=== PATIENT | male | born 1965 | race Caucasian/White ===

== ENCOUNTER 2020-07-07 10:41 | Outpatient (REF) | payer OTHER, SELFPAY ==
[2020-07-07 11:59] LABS: MANUAL DIFF FLAG NO
[2020-07-07 12:12] LABS: Basophils Absolute Auto 0.1 X10*3/uL (0.0-0.2); Basophils Percent Auto 1.1 % (0-2); Eosinophils Absolute Auto 0.2 X10*3/uL (0.0-0.4); Eosinophils Percent Auto 3.7 % (0-4); Hemoglobin 14.8 g/dl (14.0-18.0); Imm Gran Abs Auto 0.02 X10*3/uL (0.00-0.03); Imm Gran Pct Auto 0.4 % (0.0-0.4); Lymphocytes Absolute Auto 1.7 X10*3/uL (1.2-4.9); Lymphocytes Percent Auto 30.9 % (20-40); Mean Corpuscular HGB Conc 32.2 g/dl (31.0-36.0); Mean Corpuscular Hemoglobin 28.5 pg (27.0-33.0); Mean Corpuscular Volume 88.6 fL (80-98); Mean Platelet Volume 9.7 fL (9.4-12.4); Monocytes Absolute Auto 0.6 X10*3/uL (0.1-1.2); Monocytes Percent Auto 9.8 % (2-11); Neutrophils Absolute Auto 3.1 X10*3/uL (2.0-8.3); Neutrophils Percent Auto 54.1 % (45-73); Platelet Count 334 X10*3/uL (160-400); Red Blood Count 5.19 X10*6/uL (4.60-5.80); Red Cell Distribution Width 13.1 % (11.0-16.0); White Blood Count 5.6 X10*3/uL (4.8-10.8)
[2020-07-07 12:44] LABS: Anion Gap 12 (12-20); Blood Urea Nitrogen 21 mg/dL (9-16); Calcium 8.9 mg/dL (8.4-10.2); Carbon Dioxide 28 mmol/L (22-29); Chloride 105 mmol/L (96-108); Cholesterol 164 mg/dL; Estimated Glomerular Filt Rate > 60; Glucose Fasting 104 mg/dL (60-99); HDL Cholesterol 35 mg/dL; LDL Cholesterol Calculated 92 mg/dl; Potassium 4.8 mmol/l (3.3-5.1); Sodium 140 mmol/L (135-145); Triglycerides 187 mg/dL
[2020-07-07 12:51] LABS: Prostate Specific Antigen 0.56 ng/mL (<0.05-4.0); TSH reflex Free T4 3.19 mIU/mL (0.32-4.0)
[2020-07-07 13:11] LABS: Reflex LDLD? No
== END 2020-07-07 10:42 | disposition home or self-care (01) ==
LOC: HO.LAB 10:41
PROVIDERS: PCP Internal Medicine; Visit Provider Nurse Practitioner Family
DX: Z00.00 Encounter for general adult medical examination without abnormal findings (principal)
CPT/HCPCS: 36415; 80048; 80061; 84153; 84443; 85025

== ENCOUNTER 2020-08-10 09:30 | Outpatient (REF) | payer OTHER, SELFPAY ==
[2020-08-10 10:04] LABS: MANUAL DIFF FLAG NO
[2020-08-10 10:08] LABS: Basophils Percent Auto 0.6 % (0-2); Eosinophils Absolute Auto 0.2 X10*3/uL (0.0-0.4); Eosinophils Percent Auto 3.1 % (0-4); Hematocrit 45.4 % (42-52); Hemoglobin 14.8 g/dl (14.0-18.0); Imm Gran Abs Auto 0.03 X10*3/uL (0.00-0.03); Imm Gran Pct Auto 0.4 % (0.0-0.4); Lymphocytes Absolute Auto 1.9 X10*3/uL (1.2-4.9); Lymphocytes Percent Auto 27.5 % (20-40); Mean Corpuscular HGB Conc 32.6 g/dl (31.0-36.0); Mean Corpuscular Hemoglobin 28.8 pg (27.0-33.0); Mean Corpuscular Volume 88.3 fL (80-98); Mean Platelet Volume 9.4 fL (9.4-12.4); Monocytes Absolute Auto 0.5 X10*3/uL (0.1-1.2); Monocytes Percent Auto 7.8 % (2-11); Neutrophils Absolute Auto 4.1 X10*3/uL (2.0-8.3); Neutrophils Percent Auto 60.6 % (45-73); Platelet Count 345 X10*3/uL (160-400); Red Blood Count 5.14 X10*6/uL (4.60-5.80); Red Cell Distribution Width 13.1 % (11.0-16.0); White Blood Count 6.8 X10*3/uL (4.8-10.8)
[2020-08-10 10:26] LABS: Alanine Aminotransferase 29 U/L (0-40); Albumin Level 4.5 g/dL (3.5-5.0); Alkaline Phosphatase 63 U/L (39-117); Anion Gap 11 (12-20); Aspartate Amino Transferase 24 U/L (5-37); Bilirubin Total 0.5 mg/dL (0.0-1.0); Blood Urea Nitrogen 14 mg/dL (9-16); Calcium 8.8 mg/dL (8.4-10.2); Carbon Dioxide 28 mmol/L (22-29); Chloride 105 mmol/L (96-108); Estimated Glomerular Filt Rate > 60; Glucose Fasting 118 mg/dL (60-99); Potassium 4.7 mmol/l (3.3-5.1); Sodium 139 mmol/L (135-145); Total Protein 7.2 g/dL (6.5-8.0)
[2020-08-10 10:36] LABS: Rheumatoid Factor < 15.0 IU/mL (<15.0)
== END 2020-08-10 09:31 | disposition home or self-care (01) ==
LOC: HO.LAB 09:30
PROVIDERS: PCP Internal Medicine; Visit Provider Nurse Practitioner Family
DX: M19.90 Unspecified osteoarthritis, unspecified site (principal)
CPT/HCPCS: 36415; 80053; 85025; 86431

== ENCOUNTER 2020-10-05 08:20 | Outpatient (REF) | payer OTHER, SELFPAY ==
--- NOTE | ~2020-10-05 | XR_ITS ---
EXAMINATION: XR LUMBOSACRAL SPINE CLINICAL INFORMATION: Back pain. COMPARISON: None TECHNIQUE: Three views of the lumbosacral spine. FINDINGS: Mild disc space narrowing is seen at L5-S1. Normal lumbar lordosis and spinal alignment is seen. The vertebral bodies are intact. The soft tissues are unremarkable. XR/XR lumbar spine 2-3V IMPRESSION: L5-S1 mild disc space narrowing may be degenerative in nature. No acute abnormality.
[2020-10-05 09:20] LABS: MANUAL DIFF FLAG NO
[2020-10-05 09:23] LABS: Basophils Absolute Auto 0.1 X10*3/uL (0.0-0.2); Basophils Percent Auto 1.1 % (0-2); Eosinophils Absolute Auto 0.3 X10*3/uL (0.0-0.4); Eosinophils Percent Auto 3.6 % (0-4); Hematocrit 44.2 % (42-52); Hemoglobin 14.9 g/dl (14.0-18.0); Imm Gran Abs Auto 0.02 X10*3/uL (0.00-0.03); Imm Gran Pct Auto 0.3 % (0.0-0.4); Lymphocytes Absolute Auto 1.7 X10*3/uL (1.2-4.9); Lymphocytes Percent Auto 24.5 % (20-40); Mean Corpuscular HGB Conc 33.7 g/dl (31.0-36.0); Mean Corpuscular Hemoglobin 29.3 pg (27.0-33.0); Mean Corpuscular Volume 86.8 fL (80-98); Mean Platelet Volume 9.4 fL (9.4-12.4); Monocytes Absolute Auto 0.7 X10*3/uL (0.1-1.2); Monocytes Percent Auto 9.4 % (2-11); Neutrophils Absolute Auto 4.3 X10*3/uL (2.0-8.3); Neutrophils Percent Auto 61.1 % (45-73); Platelet Count 330 X10*3/uL (160-400); Red Blood Count 5.09 X10*6/uL (4.60-5.80); Red Cell Distribution Width 12.7 % (11.0-16.0)
[2020-10-05 09:50] LABS: Alanine Aminotransferase 25 U/L (0-40); Albumin Level 4.4 g/dL (3.5-5.0); Alkaline Phosphatase 76 U/L (39-117); Anion Gap 13 (12-20); Aspartate Amino Transferase 19 U/L (5-37); Bilirubin Total 0.3 mg/dL (0.0-1.0); Blood Urea Nitrogen 19 mg/dL (9-16); C Reactive Protein 0.23 mg/dL (< or = 0.50); Calcium 9.2 mg/dL (8.4-10.2); Carbon Dioxide 28 mmol/L (22-29); Chloride 107 mmol/L (96-108); Estimated Glomerular Filt Rate > 60; Glucose Random 100 mg/dL (60-115); Potassium 4.5 mmol/L (3.3-5.1); Sodium 143 mmol/L (135-145); Total Protein 7.5 g/dL (6.5-8.0)
[2020-10-05 10:09] LABS: Erythrocyte Sedimentation Rate 6 MM/HR (0-15)
[2020-10-06 14:57] LABS: Cyclic Citrullinated Peptide 17 UNITS
== END 2020-10-05 08:21 | disposition home or self-care (01) ==
LOC: HO.LAB 08:20
PROVIDERS: PCP Internal Medicine; Visit Provider Student in an Organized Health Care Education/Training Program
DX: M25.50 Pain in unspecified joint (principal); M54.5 Low back pain
CPT/HCPCS: 36415; 72100; 80053; 85025; 85652; 86140; 86200; 99202

== ENCOUNTER 2020-10-26 09:40 | Outpatient (REF) | payer OTHER, SELFPAY ==
--- NOTE | ~2020-10-26 | XR_ITS ---
EXAMINATION: XR SHOULDER, RIGHT CLINICAL INFORMATION: Pain right shoulder. COMPARISON: None TECHNIQUE: AP external rotation, Grashey, scapular Y, and axillary views of the right shoulder. FINDINGS: There is no visible acute fracture, dislocation or subluxation. No bony erosive changes. The AC joint is intact. The soft tissues are normal. XR/XR shoulder RT min 2V IMPRESSION: Unremarkable right shoulder exam.
== END 2020-10-26 09:41 | disposition home or self-care (01) ==
LOC: HO.XRAY 09:40
PROVIDERS: Absent Provider Internal Medicine; PCP Internal Medicine; Visit Provider Student in an Organized Health Care Education/Training Program
DX: M25.511 Pain in right shoulder (principal); G89.29 Other chronic pain; M54.5 Low back pain
CPT/HCPCS: 73030; 99212

== ENCOUNTER → 2020-12-09 15:45 | Outpatient (BNVA) | payer OTHER, SELFPAY | PROVIDERS: PCP Internal Medicine; Visit Provider Urology ==

== ENCOUNTER 2020-12-31 13:00 | Outpatient (RCR) | payer OTHER, SELFPAY ==
--- NOTE | 2020-11-29 11:07 | MHC.PT.EP ---
[facility] [place] Office [place] Office [place] Office [address] Uday Reilly [address] [phone] F: [phone] F: [phone] F: [phone] F: [phone] Physical Therapy Plan of Care Date of Evaluation: Date of Surgery: NA Diagnosis: LOW BACK PAIN Assessment: BELLA PRESENTS WITH LOW BACK OF APROX. 6 MONTHS DURATION, IMPROVED BUT NOT RESOLVED. UPON EXAM HE DEMONSTRATES DECREASED CORE AND LE STRENGTH, DECREASED TRUNK AND LE ROM, ALTERED POSTURE AND POSITIONING, ALTERED GAIT, DECREASED SOFT TISSUE MOBILITY AND INCREASED PAIN. FUNCTIONAL LIMITATIONS INCLUDE DECREASED ABILITY TO PERFORM LIFTING, BENDING AND SQUATTING, DECREASED ABILITY TO PERFORM HIGHER DEMAND HOMEMAKING TASKS, DECREASED ABILITY TO WALK LONG DISTANCES AND PERFORM STAND POSITIONING FOR MORE THAN A FEW MOMENTS. HE REPORTS DECREASED PARTICIPATION IN RECREATIONAL AND FITNESS TASKS AND REPORTS DISRUPTED SLEEP. Frequency and Duration: The patient will be seen 2 X WEEK FOR 5 WEEKS Short Term Goals: INITIATE HEP AND DEMONSTRATE EVIDENCE OF LEARNING IN 2 VISITS EDUC IN APPROPRIATE POSTURE AND POSITIONING WITH EVIDENCE OF LEARNING IN 2 VISITS [employer] Clearing Agent Goals: IN 5 WEEKS: WILL DEMONSTRATE FULL, PAIN FREE LUMBAR ROM WILL DEMONSTRATE FULL, PAIN FREE LE STRENGTH, EQUAL ONEL TO PERFORM HEP WITH INDEPENDENCE TO DEMONSTRATE LIFTING FLOOR TO WAIST AND CARRY WITH APPROPRIATE BODY MECHANICS AND WITHOUT CUING TO TOLERATE WALKING AD NELLIE FOR A MINIMUM OF 20 MINS WITHOUT PAIN GREATER THAN 2/10 Treatment Plan: Modalities to reduce pain, spasms and effusion. Manual therapy to restore motion and function. Therapeutic exercise to improve strength and flexibility. Neuromuscular re-education for posture and balance. Therapeutic activities to return to functional activities of daily living. Electronically signed by: JAZZMINE DIAS PT, DPT Please sign and return to therapist. Thank you for your referral.
--- NOTE | 2021-01-20 10:04 | MHC.PT.DC ---
[facility] [place] Office [place] Office [place] Office [address] [phone] F: [phone] F: [phone] F: [phone] F: [phone] Physical Therapy Discharge Report Diagnosis: LOW BACK PAIN Date of Surgery: NA Date of Evaluation: 11/29/20 Date of Discharge: 12/31/20 Treatments to Date: 8 Cancellations to Date: 0 No Shows to Date: 1 Discharge Status: Improved Function Independent with HEP Patient Elected to Stop Discharge Summary: 12/31 Rm monterroso reporteing PT has helped in the moment px has moved from R LB to middle (per pt) pt feels he would like to see MD for follow up prior to continued PT. Recommended pt to call to continue or D/C in 2 weeks. As we have not heard from him, we are discharging at this time. Electronically signed by: Mara Doe PT, DPT Please sign and return to therapist. Thank you for your referral.
== END 2020-12-31 15:00 | disposition home or self-care (01) ==
LOC: HO.PT 13:00
PROVIDERS: PCP Internal Medicine; Visit Provider Student in an Organized Health Care Education/Training Program
DX: M54.5 Low back pain (principal)
CPT/HCPCS: 97014; 97110; 97112; 97140; 97161; 97535

== ENCOUNTER → 2021-01-04 09:09 | Outpatient (BNVA) | payer OTHER, SELFPAY | PROVIDERS: PCP Internal Medicine; Visit Provider Student in an Organized Health Care Education/Training Program | DX: M54.5 Low back pain (principal); G89.29 Other chronic pain | CPT/HCPCS: 99212 ==

== ENCOUNTER → 2021-01-13 10:04 | Outpatient (BNVA) | payer OTHER, SELFPAY | PROVIDERS: PCP Internal Medicine; Visit Provider Urology | DX: N40.1 Benign prostatic hyperplasia with lower urinary tract symptoms (principal); N13.8 Other obstructive and reflux uropathy; N52.01 Erectile dysfunction due to arterial insufficiency | CPT/HCPCS: 51798; 99212 ==

== ENCOUNTER 2021-02-09 10:10 | Outpatient (REF) | payer OTHER, SELFPAY ==
[2021-02-09 12:03] LABS: Prostate Specific Antigen 0.46 ng/mL (<0.05-4.0)
== END 2021-02-09 10:11 | disposition home or self-care (01) ==
LOC: HO.LAB 10:10
PROVIDERS: PCP Internal Medicine; Visit Provider Urology
DX: Z12.5 Encounter for screening for malignant neoplasm of prostate (principal); N13.8 Other obstructive and reflux uropathy; N40.1 Benign prostatic hyperplasia with lower urinary tract symptoms; R39.11 Hesitancy of micturition
CPT/HCPCS: 36415; 84153

== ENCOUNTER 2021-02-15 11:39 | Outpatient (REF) | payer OTHER, SELFPAY ==
--- NOTE | ~2021-02-15 | XR_ITS ---
EXAMINATION: XR CHEST CLINICAL INFORMATION: Shortness of breath. COMPARISON: None TECHNIQUE: 2 views of the chest were obtained. FINDINGS: The lungs are clear. The cardiomediastinal silhouette is normal in size. There is no pleural effusion or pneumothorax. No acute osseous abnormality. XR/XR chest 2V IMPRESSION: No acute cardiopulmonary findings.
[2021-02-15 12:18] LABS: Hematocrit 46.8 % (42-52); Mean Corpuscular HGB Conc 32.1 g/dl (31.0-36.0); Mean Corpuscular Hemoglobin 27.7 pg (27.0-33.0); Mean Corpuscular Volume 86.5 fL (80-98); Mean Platelet Volume 9.5 fL (9.4-12.4); Platelet Count 337 X10*3/uL (160-400); Red Blood Count 5.41 X10*6/uL (4.60-5.80); Red Cell Distribution Width 13.2 % (11.0-16.0)
[2021-02-15 12:23] LABS: D Dimer < 200 NG/ML
[2021-02-16 08:28] LABS: SARS COV2 IgG Negative (Negative)
== END 2021-02-15 11:40 | disposition home or self-care (01) ==
LOC: HO.LAB 11:39
PROVIDERS: PCP Internal Medicine; Visit Provider Physician Assistant
DX: Z20.822 Contact with and (suspected) exposure to COVID-19 (principal); R07.81 Pleurodynia; I10 Essential (primary) hypertension; R06.02 Shortness of breath
CPT/HCPCS: 36415; 71046; 85027; 85379; 86769

== ENCOUNTER → 2021-02-23 15:03 | Outpatient (BNVA) | payer OTHER, SELFPAY | PROVIDERS: PCP Internal Medicine; Visit Provider Nurse Practitioner Family | DX: M54.16 Radiculopathy, lumbar region (principal); M53.3 Sacrococcygeal disorders, not elsewhere classified | CPT/HCPCS: 99202 ==

== ENCOUNTER → 2021-02-24 11:23 | Outpatient (BNVA) | payer OTHER, SELFPAY | PROVIDERS: PCP Internal Medicine; Visit Provider Urology | DX: N40.1 Benign prostatic hyperplasia with lower urinary tract symptoms (principal); N13.8 Other obstructive and reflux uropathy; N52.01 Erectile dysfunction due to arterial insufficiency; R39.11 Hesitancy of micturition; R31.9 Hematuria, unspecified | CPT/HCPCS: 51798; 99212 ==

== ENCOUNTER 2021-03-08 08:20 | Outpatient (REF) | payer OTHER, SELFPAY ==
--- NOTE | ~2021-03-08 | MR_ITS ---
MR LUMBAR SPINE WITHOUT CONTRAST CLINICAL INFORMATION: Lumbar region radiculopathy. COMPARISON: Lumbar spine radiographs 10/05/2020. TECHNIQUE: MRI of the lumbar spine was obtained using routine sequences without contrast. FINDINGS: There are 5 nonrib-bearing lumbar-type vertebral bodies. Slight grade 1 anterolisthesis of L4 on L5. Lumbar alignment is otherwise maintained. Modic type I endplate signal changes at L5-S1. There is no additional bone marrow edema. No acute fractures. The vertebral body heights are maintained. Conus terminates at the T12-L1 level. Left parapelvic cysts. Bilateral perinephric stranding. Left-sided IVC. L1-L2: There is a left paracentral disc protrusion that mildly indents the left ventral thecal sac. No central canal stenosis and no foraminal stenosis. L2-L3: Diffuse annular disc bulge and mild to moderate bilateral facet arthropathy. No central canal stenosis. There is mild foraminal encroachment bilaterally. A far left lateral disc protrusion at this level results in mass effect on the extraforaminal left L2 nerve root. L3-L4: There is a diffuse annular disc bulge and there is mild to moderate bilateral facet arthropathy. No central canal stenosis. There is mild foraminal encroachment bilaterally. L4-L5: There is a diffuse annular disc bulge and there is moderate to severe bilateral facet arthropathy. Bilateral subarticular zone stenosis with mass effect on the traversing L5 nerve roots within the subarticular zones bilaterally. The central canal is patent. There is mild foraminal encroachment bilaterally. L5-S1: There is a diffuse annular disc bulge the superimposed shallow left paracentral disc protrusion associated with an annular fissure that results in mass effect on the traversing left S1 nerve root within the left subarticular zone. The central canal remains patent. There is mild to moderate bilateral foraminal stenosis. MR/MR lumbar spine wo con IMPRESSION: - At L5-S1, a left paracentral disc protrusion associated with an annular fissure that results in mass effect on the traversing left S1 nerve root within the left subarticular zone. Mild to moderate bilateral foraminal stenosis at this level. - At L4-L5, multifactorial degenerative changes result in bilateral subarticular zone stenosis with mass effect on the traversing L5 nerve roots within the subarticular zones bilaterally. - At L2-L3, a far left lateral disc protrusion results in mass effect on the extraforaminal left L2 nerve root. - Left-sided IVC.
== END 2021-03-08 08:21 | disposition home or self-care (01) ==
LOC: HO.MRI 08:20
PROVIDERS: PCP Internal Medicine; Visit Provider Nurse Practitioner Family
DX: M54.16 Radiculopathy, lumbar region (principal)
CPT/HCPCS: 72148

== ENCOUNTER → 2021-03-24 08:49 | Outpatient (BNVA) | payer OTHER, SELFPAY | PROVIDERS: PCP Internal Medicine; Visit Provider Orthopaedic Surgery | DX: M75.101 Unspecified rotator cuff tear or rupture of right shoulder, not specified as traumatic (principal) | CPT/HCPCS: 20610; 99202; J1100 ==

== ENCOUNTER 2021-12-15 08:58 | Outpatient (REF) | payer OTHER, SELFPAY ==
--- NOTE | ~2021-12-15 | XR_ITS ---
EXAMINATION: XR HAND, LEFT CLINICAL INFORMATION: Chronic pain left hand near first MCP. COMPARISON: None TECHNIQUE: PA, lateral, and oblique views of the left hand. FINDINGS: Normal bony mineralization. No periarticular demineralization. No fracture or dislocation. The pronator quadratus fat pad appears normal. The carpus shows no joint narrowing or erosive change or chondrocalcinosis. No MCP joint narrowing. There are small healed erosions suspected lateral base 3rd and 5th proximal phalanges. A small spur is present lateral base first proximal phalanx. The PIP and DIP joints are unremarkable. XR/XR hand LT 2V IMPRESSION: -No acute or healing fracture or dislocation. -Small healed erosion suspected lateral base third and fifth proximal phalanges. -Small spur lateral base first proximal phalanx. -No periarticular demineralization or chondrocalcinosis.
[2021-12-15 09:15] LABS: MANUAL DIFF FLAG NO
[2021-12-15 09:53] LABS: Basophils Percent Auto 0.7 % (0-2); Eosinophils Absolute Auto 0.2 X10*3/uL (0.0-0.4); Hematocrit 45.2 % (42.0-52.0); Hemoglobin 14.8 g/dl (14.0-18.0); Imm Gran Abs Auto 0.03 X10*3/uL (0.00-0.03); Imm Gran Pct Auto 0.5 % (0.0-0.4); Lymphocytes Absolute Auto 1.4 X10*3/uL (1.2-4.9); Lymphocytes Percent Auto 25.9 % (20-40); Mean Corpuscular HGB Conc 32.7 g/dl (31.0-36.0); Mean Corpuscular Hemoglobin 28.1 pg (27.0-33.0); Mean Corpuscular Volume 85.9 fL (80.0-98.0); Mean Platelet Volume 9.1 fL (9.4-12.4); Monocytes Absolute Auto 0.5 X10*3/uL (0.1-1.2); Monocytes Percent Auto 8.6 % (2-11); Neutrophils Absolute Auto 3.3 x10*3/uL (2.0-8.3); Neutrophils Percent Auto 60.3 % (45-73); Platelet Count 333 X10*3/uL (160-400); Red Blood Count 5.26 X10*6/uL (4.60-5.80); Red Cell Distribution Width 13.1 % (11.0-16.0); White Blood Count 5.5 X10*3/uL (4.8-10.8)
[2021-12-15 10:28] LABS: Alanine Aminotransferase 21 U/L (0-40); Albumin Level 4.4 g/dL (3.5-5.0); Alkaline Phosphatase 66 U/L (39-117); Anion Gap 9 (12-20); Aspartate Amino Transferase 19 U/L (5-37); Bilirubin Total 0.7 mg/dL (0.0-1.0); Blood Urea Nitrogen 17 mg/dL (9-16); Calcium 9.5 mg/dL (8.4-10.2); Carbon Dioxide 28 mmol/L (22-29); Chloride 105 mmol/L (96-108); Cholesterol 180 mg/dL; Estimated Glomerular Filt Rate > 60; Glucose Fasting 102 mg/dL (60-99); HDL Cholesterol 36 mg/dL; LDL Cholesterol Calculated 99 mg/dl; Potassium 4.4 mmol/L (3.3-5.1); Sodium 138 mmol/L (135-145); Total Protein 7.5 g/dL (6.5-8.0); Triglycerides 226 mg/dL
[2021-12-15 10:34] LABS: TSH reflex Free T4 1.63 uIU/mL (0.32-4.0)
[2021-12-21 13:32] LABS: Vitamin D 25-OH, D2 <4 ng/mL; Vitamin D 25-OH, D3 22 ng/mL; Vitamin D 25-OH, Total 22 ng/mL (30-100)
== END 2021-12-15 08:59 | disposition home or self-care (01) ==
LOC: HO.LAB 08:58
PROVIDERS: PCP Internal Medicine; Visit Provider Nurse Practitioner Family
DX: M79.642 Pain in left hand (principal); R03.0 Elevated blood-pressure reading, without diagnosis of hypertension; E78.00 Pure hypercholesterolemia, unspecified; I10 Essential (primary) hypertension
CPT/HCPCS: 36415; 73120; 80053; 80061; 82306; 84443; 85025; 86900; 86901

== ENCOUNTER 2022-03-21 09:49 | Outpatient (REF) | payer OTHER, SELFPAY ==
[2022-03-21 11:39] LABS: PSA,Total (Free>4and<10) 0.46 ng/mL (0.00-4.00); Vitamin D 25-OH Total 27.2 ng/mL (>30)
== END 2022-03-21 09:50 | disposition home or self-care (01) ==
LOC: HO.LAB 09:49
PROVIDERS: PCP Internal Medicine; Visit Provider Internal Medicine
DX: Z12.5 Encounter for screening for malignant neoplasm of prostate (principal); E55.9 Vitamin D deficiency, unspecified
CPT/HCPCS: 36415; 82306; 84153

== ENCOUNTER 2022-03-30 09:37 | Outpatient (REF) | payer OTHER, SELFPAY ==
[2022-03-30 11:11] LABS: Alanine Aminotransferase 21 U/L (0-40); Albumin Level 4.5 g/dL (3.5-5.0); Alkaline Phosphatase 64 U/L (39-117); Anion Gap 14 (12-20); Aspartate Amino Transferase 21 U/L (5-37); Bilirubin Total 0.7 mg/dL (0.0-1.0); Blood Urea Nitrogen 18 mg/dL (9-16); Calcium 9.4 mg/dL (8.4-10.2); Carbon Dioxide 26 mmol/L (22-29); Chloride 103 mmol/L (96-108); Estimated Glomerular Filt Rate > 60; Glucose Random 115 mg/dL (60-115); Potassium 4.1 mmol/L (3.3-5.1); Sodium 139 mmol/L (135-145); Total Protein 7.4 g/dL (6.5-8.0)
[2022-03-30 11:55] LABS: Appearance Urine Clear; Color Urine Dark Yellow; Glucose Urine UA Negative (Negative); Leukocyte Esterase Urine Negative (Negative); Nitrite Urine Negative (Negative); PH 5.5 (5.0-9.0); Specific Gravity - Urine 1.025 (1.005-1.025); Urine Blood Negative (Negative); Urine Ketones Negative (Negative); Urine Protein Negative (Neg-Trace)
[2022-03-30 12:12] LABS: Total Volume 24 Hour Urine 1800 mL
[2022-03-30 12:18] LABS: Creatinine, 24Hr Urine 2.3 G/Day (1.0-2.0); Creatinine, mg/dL 126.32; Protein mg/dL < 7 mg/dL
[2022-03-30 12:24] LABS: Creatinine Urine 185.82 mg/dL; Microalbum/Creatinine Ratio Ur 17.2 ug/mg cr; Protein/Creatinine Ratio, Ur 0.06 (<0.2); Total Protein Urine Random 12 mg/dL (<12)
[2022-03-30 13:50] LABS: Creatinine (CrCl) 0.96 mg/dL (0.5-1.4); Creatinine Clearance 164.4 mL/min (85-125)
[2022-03-30 15:19] LABS: Microalbumin Excretion Rate Ur 16 mg/24Hr; Total Volume 24 Hour Urine 1800 mL
== END 2022-03-30 09:38 | disposition home or self-care (01) ==
LOC: HO.LAB 09:37
PROVIDERS: PCP Internal Medicine; Visit Provider Surgery
DX: Z00.5 Encounter for examination of potential donor of organ and tissue (principal); R80.9 Proteinuria, unspecified; N39.0 Urinary tract infection, site not specified; E78.5 Hyperlipidemia, unspecified; R68.89 Other general symptoms and signs; T80.30XA ABO incompatibility reaction due to transfusion of blood or blood products, unspecified, initial encounter
CPT/HCPCS: 36415; 80053; 81003; 82043; 82575; 84156

== ENCOUNTER 2022-06-27 11:42 | Outpatient (REF) | payer OTHER, SELFPAY ==
[2022-06-27 13:05] LABS: Creatinine Urine 239.55 mg/dL; Microalbum/Creatinine Ratio Ur 10.4 ug/mg cr; Protein/Creatinine Ratio, Ur 0.05 (<0.2); Total Protein Urine Random 11 mg/dL (<12)
[2022-06-27 13:15] LABS: Alanine Aminotransferase 19 U/L (0-40); Albumin Level 4.7 g/dL (3.5-5.0); Alkaline Phosphatase 62 U/L (39-117); Anion Gap 12 (12-20); Bilirubin Total 0.5 mg/dL (0.0-1.0); Blood Urea Nitrogen 14 mg/dL (9-16); Calcium 9.6 mg/dL (8.4-10.2); Carbon Dioxide 28 mmol/L (22-29); Chloride 104 mmol/L (96-108); Cholesterol 179 mg/dL; Estimated Glomerular Filt Rate > 60; Glucose Random 114 mg/dL (60-115); HDL Cholesterol 34 mg/dL; LDL Cholesterol Calculated 100 mg/dl; Potassium 4.6 mmol/L (3.3-5.1); Sodium 139 mmol/L (135-145); Total Protein 7.6 g/dL (6.5-8.0); Triglycerides 229 mg/dL
[2022-06-27 13:30] LABS: Estimated Average Glucose 126 mg/dL
[2022-06-27 14:04] LABS: Aspartate Amino Transferase 16 U/L (5-37)
== END 2022-06-27 11:43 | disposition home or self-care (01) ==
LOC: HO.LAB 11:42
PROVIDERS: PCP Internal Medicine; Visit Provider Surgery
DX: R94.4 Abnormal results of kidney function studies (principal); Z87.441 Personal history of nephrotic syndrome; Z52.4 Kidney donor
CPT/HCPCS: 36415; 80053; 80061; 82043; 83036; 84156

== ENCOUNTER 2022-11-22 09:43 | Outpatient (REF) | payer OTHER, SELFPAY ==
[2022-11-22 11:11] LABS: Estimated Average Glucose 126 mg/dL
[2022-11-22 11:14] LABS: Alanine Aminotransferase 22 U/L (0-40); Albumin Level 4.3 g/dL (3.5-5.0); Alkaline Phosphatase 71 U/L (39-117); Anion Gap 13 (12-20); Aspartate Amino Transferase 18 U/L (5-37); Bilirubin Total 0.5 mg/dL (0.0-1.0); Blood Urea Nitrogen 16 mg/dL (9-16); Calcium 9.1 mg/dL (8.4-10.2); Carbon Dioxide 26 mmol/L (22-29); Chloride 105 mmol/L (96-108); Cholesterol 173 mg/dL; Estimated Glomerular Filt Rate > 60; Glucose Fasting 103 mg/dL (60-99); HDL Cholesterol 32 mg/dL; LDL Cholesterol Calculated 94 mg/dl; Potassium 4.2 mmol/L (3.3-5.1); Sodium 140 mmol/L (135-145); Triglycerides 236 mg/dL
[2022-11-22 11:32] LABS: TSH reflex Free T4 2.14 uIU/mL (0.32-4.0)
== END 2022-11-22 09:44 | disposition home or self-care (01) ==
LOC: HO.LAB 09:43
PROVIDERS: PCP Internal Medicine; Visit Provider Nurse Practitioner Family
DX: Z13.29 Encounter for screening for other suspected endocrine disorder (principal); E78.1 Pure hyperglyceridemia; R73.03 Prediabetes
CPT/HCPCS: 36415; 80053; 80061; 82306; 83036; 84443

== ENCOUNTER 2022-12-19 07:04 | Day surgery (SDC) | payer OTHER, SELFPAY ==
--- NOTE | 2022-12-18 12:14 | P.CONAN_ITS ---
Documented by User: Dayana Montalvo NP 12/18/22 12:14 HPI - Anesthesia Eval Consult details Narrative: 57yo M for Colonoscopy PMFSH Active Problems Active Problems: All Active Problems (Updated 12/01/22 @ 16:54 by CE Sweet) Low vitamin D level (Acute) Pre-diabetes (Acute) Screening for diabetes mellitus (Acute) Screening for hypothyroidism (Acute) Hypertriglyceridemia (Acute) Complete rotator cuff tear of left shoulder (Acute) Muscle strain of left shoulder (Acute) Physical exam (Acute) Adult BMI 26.0-26.9 kg/sq m (Acute) Left hand pain (Acute) Elevated blood pressure reading (Acute) Painful arc syndrome of right shoulder (Acute) VENKAT (generalized anxiety disorder) (Acute) Mild major depression, single episode (Acute) Protrusion of intervertebral disc (Acute) Sacroiliac joint pain (Acute) Left lumbar radiculopathy (Acute) Pleuritic pain (Acute) SOB (shortness of breath) (Acute) Erectile dysfunction due to arterial insufficiency (Acute) Urinary hesitancy (Acute) BPH w urinary obs/LUTS (Acute) Right shoulder pain (Acute) Urinary dribbling (Acute) Low back pain (Acute) Polyarthralgia (Acute) Arthritis (Acute) Cervicalgia (Acute) Physical exam (Acute) Past Medical History Medical History Arthritis Cervicalgia VENKAT (generalized anxiety disorder) Mild major depression, single episode Physical exam Protrusion of intervertebral disc Right shoulder pain Urinary dribbling Family History Family History Father Prostate cancer Mother Thyroid disease Son Aplastic anemia Surgical History Surgical History History of rotator cuff surgery Social History Social History Household Members: Spouse Housing: House Alcohol intake: current Alcohol intake frequency: a few times a month Alcohol type: beer Patient Tobacco Use Status: Never used Tobacco e-Cigarette/Vaping Use: Never Used Second Hand Smoke Exposure: Yes service: No Current occupational status: employed Current occupational exposures/hazards: No Cognitive needs: No Hearing needs: No Vision needs: Yes Meds Allergies Allergy/AdvReac Type Severity Reaction Status Date / Time No Known Allergies Allergy Verified 11/17/22 10:58 Home Medications Medication Instructions Recorded Confirmed Last Taken Type miscellaneous medical supply 12/15/21 11/17/22 Unknown History (Blood Pressure Cuff) Exam Exam Date and Time: December 18, 20221213 Assessment and Plan Assessment Anesthesia Assessment: Chart Reviewed Documented by User: Aniceto Bravo MD 12/19/22 07:14 [facility] Past Medical History Medical History Arthritis Cervicalgia VENKAT (generalized anxiety disorder) Mild major depression, single episode Physical exam Protrusion of intervertebral disc Right shoulder pain Urinary dribbling Family History Family History Father Prostate cancer Mother Thyroid disease Son Aplastic anemia Family history of problems with anesthesia: No Surgical History Surgical History History of rotator cuff surgery History of Problems with Anesthesia: No Social History Social History Household Members: Spouse Housing: House Alcohol intake: current Alcohol intake frequency: a few times a month Alcohol type: beer Patient Tobacco Use Status: Never used Tobacco e-Cigarette/Vaping Use: Never Used Second Hand Smoke Exposure: Yes service: No Current occupational status: employed Current occupational exposures/hazards: No Cognitive needs: No Hearing needs: No Vision needs: Yes Meds Allergies Allergy/AdvReac Type Severity Reaction Status Date / Time No Known Allergies Allergy Verified 11/17/22 10:58 Home Medications Medication Instructions Recorded Confirmed Last Taken Type miscellaneous medical supply 12/15/21 11/17/22 Unknown History (Blood Pressure Cuff) Exam Airway Mallampati Class: II TM Dist: >3cm Neck ROM: Full Heart: rrr Lungs: cta Assessment and Plan Assessment Anesthesia Assessment: Anesthesia Plan Discussed Final Anesthetic Review Family History of Problems with Anesthesia: No History of Problems with Anesthesia: No NPO: Yes ASA Class: III Final Preanesthetic Review: No Changes in Pt Med Stat, Meds/Allgs Chart Reviewed, Consent Obtained/Reviewed and Anes Risks/Benef Reviewed Patient Risk: Intermediate Procedure Risk: Low Anesthetic Plan Anesthetic Plan: MAC: and Agree w/ Assess. and Plan Disposition: Standard PACU
[2022-12-19 07:12] VITALS: BMI 26.1
[2022-12-19] MEDS: Lactated Ringers 1,000 ML 100 ML IVCONT (07:20)
[2022-12-19 07:32] VITALS: BP 137/93; PULSE 70; RESP 18; TEMP 36.6; O2SAT 96
--- NOTE | 2022-12-19 08:14 | P.HPSUR_ITS ---
Pre-Procedural Eval Section A Date of Service: 12/19/22 Section B Chief Complaint: Encounter for screening for malignant neoplasm of Details of Present Illness: see H&P no changes Relevant Family History (Specify if Yes): No Relevant Social History: None Present Medications: see Short Stay Collaborative assessment Medical History: No relevant PMH History of Previous Operations: No relevant previous surgery Allergies: Allergies Allergy/AdvReac Type Severity Reaction Status Date / Time No Known Allergies Allergy Verified 11/17/22 10:58 Review of Systems Sugical H&P ROS: Negative: Constitution, Cardiovascular, Respiratory, Neurolo gical, Psychiatric, Hem-Onc, Allergic/Immunologic, Gastrointestinal, Genitourinary, Musculoskeletal, Integumentary, Endocrine and Eyes/Ears/Nose/Throat Exam Surgical H&P Exam: Normal: HEENT, Normal: Heart, Normal: Lungs, Normal: Extremities, Normal: Abdomen, Normal: Skin and Normal: Neurological Plan Diagnosis/Plan: Unchanged I have reviewed the history and physical and performed a pertinent physical examination on my patient. No changes have occurred unless specified. Time Spent With Patient Time: Total time managing care of this patient today ____ minutes.
[2022-12-19 08:50] VITALS: BP 101/68; PULSE 60; RESP 16; TEMP 36.3; O2SAT 94
--- NOTE | 2022-12-19 08:51 | P.BOP_ITS ---
Brief Operative Note Date of Service: 12/19/22 Pre-op diagnosis: screening Post-op diagnosis: same Procedure: colonoscopy Surgeon: Krishan Ramon Anesthesia: MAC Was an Fabric Pattern Grader used for this Procedure?: No Estimated blood loss (mL): 0 Pathology: none sent Condition: stable Disposition: PACU
[2022-12-19 09:05] VITALS: BP 111/69; PULSE 56; RESP 18; TEMP 36.3; O2SAT 96
--- NOTE | 2022-12-19 09:30 | OP_ITS ---
DATE OF SERVICE: 12/19/2022 SURGEON: Krishan Ramon MD INDICATIONS: Colon cancer screening and incomplete examination at last colonoscopy due to poor prep. PREOPERATIVE DIAGNOSIS: POSTOPERATIVE DIAGNOSIS: PROCEDURE PERFORMED: Colonoscopy to the terminal ileum. ESTIMATED BLOOD LOSS: COMPLICATIONS: ANESTHESIA: Monitored anesthesia care. ASSISTANTS: SPECIMENS: DESCRIPTION OF PROCEDURE: A history and physical was performed. The risks and benefits of the procedure were explained to the patient, and informed consent was obtained. The patient was placed in the left lateral decubitus position. A digital rectal exam was performed and was found to be normal. The Olympus pediatric video colonoscope was introduced into the rectum and advanced to the cecum without difficulty. The cecum was identified by transillumination, palpation, and identification of ileocecal valve examination was performed. The scope was removed. He tolerated the procedure well and was returned to the recovery area in stable condition. FINDINGS: The terminal ileum was examined and appeared normal. The visualized colonic mucosa was within normal limits without evidence of masses or ulcers. No polyps were identified. The quality of the prep was good. There was mild sigmoid diverticulosis with a few scattered diverticula throughout the remainder of the colon. Retroflexed examination showed small internal hemorrhoids. IMPRESSION: Normal colonoscopy. RECOMMENDATION: 1. Follow up as needed. 2. Repeat colonoscopy is recommended in 10 years for average risk individuals. MD VANDANA Morales/ANNE-MARIEL / [id number]
== END 2022-12-19 09:49 | disposition home or self-care (01) ==
PROVIDERS: PCP Internal Medicine; Visit Provider Internal Medicine Gastroenterology
PROC: 0DJD8ZZ Inspection of Lower Intestinal Tract, Via Natural or Artificial Opening Endoscopic (ICD-10-PCS; CPT 45378; principal; 2022-12-19 08:10)
DX: Z12.11 Encounter for screening for malignant neoplasm of colon (principal); Z83.71 Family history of colonic polyps; K57.30 Diverticulosis of large intestine without perforation or abscess without bleeding; K64.8 Other hemorrhoids; M54.2 Cervicalgia; M51.9 Unspecified thoracic, thoracolumbar and lumbosacral intervertebral disc disorder; M19.90 Unspecified osteoarthritis, unspecified site; E78.1 Pure hyperglyceridemia; N40.0 Benign prostatic hyperplasia without lower urinary tract symptoms; F41.8 Other specified anxiety disorders; Z79.1 Long term (current) use of non-steroidal anti-inflammatories (NSAID)
CPT/HCPCS: 45378

== ENCOUNTER 2023-01-17 15:20 | Outpatient (REF) | payer OTHER, SELFPAY ==
--- NOTE | ~2023-01-17 | XR_ITS ---
EXAMINATION: XR KNEE LEFT XR KNEE RIGHT CLINICAL INFORMATION: Pain of the knees. COMPARISON: 11/26/2017 TECHNIQUE: Right knee, 2 views Left knee, 2 views FINDINGS: Right knee: Bones have normal alignment. Chronic mild narrowing of medial tibiofemoral joint space. Small osteophytes of patellofemoral and tibiofemoral compartments. No joint effusion. No new observations compared to 11/26/2017. Left knee: Bones have normal alignment. The joint spaces are within normal range. Small osteophytes of patellofemoral and tibiofemoral compartments. No joint effusion. XR/XR knee RT 2V IMPRESSION: Chronic mild osteoarthritis of patellofemoral and tibiofemoral compartments of both knees. Overall, no significant change compared to 11/26/2017.
--- NOTE | ~2023-01-17 | XR_ITS ---
EXAMINATION: XR KNEE LEFT XR KNEE RIGHT CLINICAL INFORMATION: Pain of the knees. COMPARISON: 11/26/2017 TECHNIQUE: Right knee, 2 views Left knee, 2 views FINDINGS: Right knee: Bones have normal alignment. Chronic mild narrowing of medial tibiofemoral joint space. Small osteophytes of patellofemoral and tibiofemoral compartments. No joint effusion. No new observations compared to 11/26/2017. Left knee: Bones have normal alignment. The joint spaces are within normal range. Small osteophytes of patellofemoral and tibiofemoral compartments. No joint effusion. XR/XR knee LT 2V IMPRESSION: Chronic mild osteoarthritis of patellofemoral and tibiofemoral compartments of both knees. Overall, no significant change compared to 11/26/2017.
== END 2023-01-17 15:21 | disposition home or self-care (01) ==
LOC: HO.XRAY 15:20
PROVIDERS: PCP Internal Medicine; Visit Provider Nurse Practitioner Family
DX: M25.561 Pain in right knee (principal); M25.562 Pain in left knee
CPT/HCPCS: 73560

== ENCOUNTER 2023-02-16 12:32 | Outpatient (REF) | payer OTHER, SELFPAY ==
--- NOTE | ~2023-02-16 | XR_ITS ---
EXAMINATION: XR KNEE AP STANDING. [place] views both knees CLINICAL INFORMATION: Knee pain COMPARISON: None available. TECHNIQUE: AP bilateral standing view of the knees was obtained. [place] views each knee. FINDINGS: AP bilateral knee: There is mild loss of medial compartment joint space with mild periapical spurring of both knees. The lateral compartment joint space is maintained normal. No visible fracture, dislocation or lytic process seen. The soft tissues are normal. No acute fracture or dislocation seen. Right knee: There is mild narrowing of lateral patellofemoral joint space. No bony erosive changes or soft tissue swelling. Left knee: Solitary sunrise view reveals narrowing of lateral patellofemoral joint space without any visible acute fracture or dislocation. There is minimal periarticular spurring. XR/XR knee standing BI IMPRESSION: Mild loss of medial tibiofemoral compartment and lateral patellofemoral joint space narrowing is noted.
--- NOTE | ~2023-02-16 | XR_ITS ---
EXAMINATION: XR KNEE AP STANDING. [place] views both knees CLINICAL INFORMATION: Knee pain COMPARISON: None available. TECHNIQUE: AP bilateral standing view of the knees was obtained. [place] views each knee. FINDINGS: AP bilateral knee: There is mild loss of medial compartment joint space with mild periapical spurring of both knees. The lateral compartment joint space is maintained normal. No visible fracture, dislocation or lytic process seen. The soft tissues are normal. No acute fracture or dislocation seen. Right knee: There is mild narrowing of lateral patellofemoral joint space. No bony erosive changes or soft tissue swelling. Left knee: Solitary sunrise view reveals narrowing of lateral patellofemoral joint space without any visible acute fracture or dislocation. There is minimal periarticular spurring. XR/XR knee LT 1V IMPRESSION: Mild loss of medial tibiofemoral compartment and lateral patellofemoral joint space narrowing is noted.
--- NOTE | ~2023-02-16 | XR_ITS ---
EXAMINATION: XR KNEE AP STANDING. Edson views both knees CLINICAL INFORMATION: Knee pain COMPARISON: None available. TECHNIQUE: AP bilateral standing view of the knees was obtained. Edson views each knee. FINDINGS: AP bilateral knee: There is mild loss of medial compartment joint space with mild periapical spurring of both knees. The lateral compartment joint space is maintained normal. No visible fracture, dislocation or lytic process seen. The soft tissues are normal. No acute fracture or dislocation seen. Right knee: There is mild narrowing of lateral patellofemoral joint space. No bony erosive changes or soft tissue swelling. Left knee: Solitary sunrise view reveals narrowing of lateral patellofemoral joint space without any visible acute fracture or dislocation. There is minimal periarticular spurring. XR/XR knee RT 1V IMPRESSION: Mild loss of medial tibiofemoral compartment and lateral patellofemoral joint space narrowing is noted.
== END 2023-02-16 12:33 | disposition home or self-care (01) ==
LOC: HO.HOSX 12:32
PROVIDERS: Visit Provider Physician Assistant
DX: M22.42 Chondromalacia patellae, left knee (principal); M17.12 Unilateral primary osteoarthritis, left knee; M25.561 Pain in right knee
CPT/HCPCS: 20610; 73560; 73565; J1040

== ENCOUNTER 2023-02-16 12:47 | Outpatient (AMB) | payer OTHER, SELFPAY ==
[2023-02-16 13:04] VITALS: BMI 25.8
--- NOTE | 2023-02-16 13:04 | MHC.OFFVIS ---
Intake Vital Signs 02/16/23 13:04 Height 5 ft 11 in Weight 185 lb BMI 25.8 Intake Visit Reasons: new prob- B/L knee pain Intake Note: Rm rajan 57 year old male presents today for an evaluation of bilateral knee pain. Patient reports pain started about 2 years ago, states he was working for [employer] that required a lot of lifting and also had fallen on ice a couple of times. Concerned of muscle above knee on left leg pops out. His pain is intermittent at the anterior aspect of knees that gets worse with activity. Finds little relief with Tylenol and Motrin. Hx of cortisone injection 1-2 years ago that provided relief for only a couple of weeks. Allergies No Known Allergies Allergy (Verified 02/16/23 13:16) HPI new prob- B/L knee pain HPI Details 57-year-old male who presents to the office today for evaluation of bilateral knee pain for about 2 years. He states he has intermittent pain at the anterior aspect of his bilateral knees which is aggravated with activity and squatting. His pain is worse on the left knee and he also experiences occasional catching and popping of the muscle above his left knee. He is working for [employer] which involves a lot of lifting and he also reports sustaining falls on ice a couple of times. He also likes to play soccer. [facility] Medical History Arthritis Cervicalgia VENKAT (generalized anxiety disorder) Mild major depression, single episode Physical exam Protrusion of intervertebral disc Right shoulder pain Urinary dribbling Surgical History History of rotator cuff surgery Hx of colonoscopy Family History Father Prostate cancer Mother Thyroid disease Son Aplastic anemia Social History Household Members: Spouse Housing: House Alcohol intake: current Alcohol intake frequency: a few times a month Alcohol type: beer Patient Tobacco Use Status: Never used Tobacco e-Cigarette/Vaping Use: Never Used Second Hand Smoke Exposure: Yes service: No Current occupational status: employed Current occupational exposures/hazards: No Cognitive needs: No Hearing needs: No Vision needs: Yes Review of Systems Const All systems reviewed & are unremarkable except as noted in HPI and below Physical Exam Vital Signs: BMI result Body Mass Index 25.8 Const General: cooperative and no acute distress Orientation/consciousness: patient oriented x3 Resp Effort & Inspection: normal respiratory effort and able to speak in complete sentences Cardio Peripheral pulses: Peripheral pulses 2+ throughout Neuro General: patient oriented x3 Extrem Other: Bilateral knee: Skin intact, no erythema or joint effusion. Tenderness along the medial joint line. Full ROM with crepitus. Negative Андрей?s. No ligamentous laxity. NVI. Office Procedures Joint Injection/Drain Joint Injection/Drain Primary Site: left knee Prep: site was prepped using aseptic technique, ethochloride spray was applied and injection warnings given Injected: 80 mg of, DepoMedrol, with 8 mL of, 1% plain lidocaine and in the joint Approach Used: anterolateral Procedure: The patient tolerated the procedure well and there was some relief with the local anesthesia Coding 28251 - Glenohumeral/Tronchanteric Bursa/Intraarticular Procedure code (CPT) selection complete Results Reviewed Results Reviewed: 02/16/23 13:28 Lidocaine HCl 2 % MPF [Xylocaine 2 % MPF] 5 ml .ROUTE .STK-MED ONE methylPREDNISolone acetate [DEPO-MedroL] 80 mg .ROUTE .STK-MED ONE Assessment & Plan Assessment & Plan (1) Chondromalacia of left patellofemoral joint: Code(s): M22.42 - Chondromalacia patellae, left knee Plan We discussed options today which include steroid injection. They did consent to move forward with the left knee steroid injection, which was tolerated well. I recommended rest, ice and elevation and OTC anti-inflammatories PRN for discomfort. An MRI of the left knee was also ordered in the office today. If symptoms persist or worsens over the next 6-8 weeks, patient will contact the office, otherwise follow-up as needed. Orders: Orders XR knee LT 1V 02/16/23 M25.562 - Pain in left knee XR knee RT 1V 02/16/23 M25.561 - Pain in right knee XR knee standing BI 02/16/23 M25.561 - Pain in right knee, M25.562 - Pain in left knee MR knee LT wo con 02/16/23 M17.12 - Unilateral primary osteoarthritis, left knee Patient Instructions: Scribed for Ta-Tabitha Meuse, PA-C, by Jonathan Dennis medical physics professor, on 02/16/2023 at 12:45 PM EMETERIO. Carmelina Mcpherson PA-C, have personally reviewed and agree with the information entered by the scribe. Coding Level of Care Code New Pt Level 3 (19604) Diagnoses Chondromalacia of left patellofemoral joint M22.42 CPT Codes Coding - Joint 7: 96961 - Glenohumeral/Tronchanteric Bursa/Intraarticular ([id number])
== END 2023-02-16 15:11 | disposition home or self-care (01) ==
PROVIDERS: PCP Internal Medicine; Visit Provider Physician Assistant
DX: M22.42 Chondromalacia patellae, left knee (principal)
CPT/HCPCS: 20610; 99214

== ENCOUNTER 2023-03-02 10:10 | Outpatient (REF) | payer OTHER, SELFPAY ==
[2023-03-02 10:35] LABS: MANUAL DIFF FLAG NO
[2023-03-02 11:01] LABS: Basophils Absolute Auto 0.1 X10*3/uL (0.0-0.2); Basophils Percent Auto 1.1 % (0-2); Eosinophils Absolute Auto 0.2 X10*3/uL (0.0-0.4); Eosinophils Percent Auto 2.5 % (0-4); Hematocrit 45.7 % (42.0-52.0); Hemoglobin 14.8 g/dl (14.0-18.0); Imm Gran Abs Auto 0.04 X10*3/uL (0.00-0.03); Imm Gran Pct Auto 0.5 % (0.0-0.4); Lymphocytes Percent Auto 27.2 % (20-40); Mean Corpuscular HGB Conc 32.4 g/dl (31.0-36.0); Mean Corpuscular Hemoglobin 28.1 pg (27.0-33.0); Mean Corpuscular Volume 86.7 fL (80.0-98.0); Mean Platelet Volume 9.3 fL (9.4-12.4); Monocytes Absolute Auto 0.5 X10*3/uL (0.1-1.2); Monocytes Percent Auto 7.2 % (2-11); Neutrophils Absolute Auto 4.6 x10*3/uL (2.0-8.3); Neutrophils Percent Auto 61.5 % (45-73); Platelet Count 325 X10*3/uL (160-400); Red Blood Count 5.27 X10*6/uL (4.60-5.80); Red Cell Distribution Width 13.3 % (11.0-16.0); White Blood Count 7.5 X10*3/uL (4.8-10.8)
[2023-03-02 19:53] LABS: Alanine Aminotransferase 22 U/L (0-40); Albumin Level 4.4 g/dL (3.5-5.0); Alkaline Phosphatase 62 U/L (39-117); Anion Gap 16 (12-20); Bilirubin Total 0.6 mg/dL (0.0-1.0); Blood Urea Nitrogen 16 mg/dL (9-16); Calcium 9.3 mg/dL (8.4-10.2); Carbon Dioxide 23 mmol/L (22-29); Chloride 106 mmol/L (96-108); Estimated Glomerular Filt Rate > 60; Glucose Fasting 97 mg/dL (60-99); Potassium 4.4 mmol/L (3.3-5.1); Sodium 141 mmol/L (135-145); Total Protein 7.5 g/dL (6.5-8.0)
[2023-03-02 20:13] LABS: Aspartate Amino Transferase 20 U/L (5-37)
[2023-03-02 23:00] LABS: Vitamin D 25-OH Total 42.4 ng/mL (>30)
== END 2023-03-02 10:11 | disposition home or self-care (01) ==
LOC: HO.LAB 10:10
PROVIDERS: Nurse Practitioner Family; PCP Internal Medicine; Visit Provider Internal Medicine
DX: S46.912A Strain of unspecified muscle, fascia and tendon at shoulder and upper arm level, left arm, initial encounter (principal); R79.89 Other specified abnormal findings of blood chemistry; X58.XXXA Exposure to other specified factors, initial encounter; Y93.9 Activity, unspecified; Y92.9 Unspecified place or not applicable; Y99.9 Unspecified external cause status
CPT/HCPCS: 36415; 80053; 82306; 85025

== ENCOUNTER 2023-03-27 08:24 | Outpatient (AMB) | payer OTHER, SELFPAY ==
[2023-03-27 08:42] VITALS: BP 122/80; BMI 26.1
--- NOTE | 2023-03-27 08:42 | MHC.PC.OV ---
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 Accompanied by: Self / Same As Patient Allergies No Known Allergies Allergy (Verified 03/27/23 08:52) Medication List - Last Reconciled 03/27/23 by Larissa Piedra MD cholecalciferol (vitamin D3) 25 mcg PO DAILY hydroxyzine HCl 25 mg PO BEDTIME PRN miscellaneous medical supply (Blood Pressure Cuff) As directed naproxen 500 mg PO BID PRN 14 days Tobacco use date assessed: 01/04/23 Dental Screening Dental Screen Date: 03/27/23 Did you have a dental visit in the last 12 months?: Yes Did you have a dental problem in the last 6 months where you did not have access to dental care?: No Was dental information given to patient?: Patient has dentist HPI HPI Comments History of Present Illness Details This is a 57-year-old male that comes for his physical exam. Last colonoscopy was 2022 and was normal as per patient. Has some anxiety after did of his 86-year-old father in October 2022 with difficulty sleeping and I will start him on escitalopram at bedtime. He does goes to counseling. No chest pain or shortness of breath. Labs were discussed. [facility] Medical History Arthritis Cervicalgia VENKAT (generalized anxiety disorder) Mild major depression, single episode Physical exam Protrusion of intervertebral disc Right shoulder pain Urinary dribbling Surgical History History of rotator cuff surgery Hx of colonoscopy Family History (Updated 03/27/23 @ 08:59 by Larissa Piedra MD) Father Prostate cancer Mother Thyroid disease Son Aplastic anemia Social History Household Members: Spouse Housing: House Alcohol intake: current Alcohol intake frequency: a few times a month Alcohol type: beer Patient Tobacco Use Status: Never used Tobacco e-Cigarette/Vaping Use: Never Used Second Hand Smoke Exposure: Yes service: No Current occupational status: employed Current occupational exposures/hazards: No Cognitive needs: No Hearing needs: No Vision needs: Yes Questionnaire Thrive Questionnaire Date Thrive assessed: 01/04/23 VENKAT-7 AMB Questionnaire VENKAT-7 Date VENKAT - 7 assessed: 01/04/23 Source: Developed by Drs. Wu Moreno, Jazzy Aparicio, Desmond Huynh and colleagues, with an educational jr from [employer]. Review of Systems Const All systems reviewed & are unremarkable except as noted in HPI and below Eyes Reports no additional complaints, Denies change in vision and Denies other visual disturbances Card Denies chest pain at rest, Denies chest pain with activity, Denies edema, Denies irregular heart rhythm, Denies claudication, Denies dyspnea, Denies dyspnea on exertion, Denies orthopnea, Denies paroxysmal nocturnal dyspnea and Denies slow heart rate Resp Denies cough, Denies dyspnea and Denies dyspnea on exertion GI Denies abdominal pain, Denies change in bowel habits, Denies excessive flatus, Denies nausea and Denies vomiting Denies urinary hesitancy, Denies urinary incontinence and Denies urinary urgency Musc Denies abnormal gait, Denies atrophy, Denies deformity and Denies limited range of motion Skin/Breast Denies bleeding lesions, Denies changing lesions and Denies rash Neuro Denies abnormal gait and Denies lack of coordination Physical exam (Primary Care) Vital Signs: Last Vital Signs BP 122/80 03/27/23 08:42 BMI result Body Mass Index 26.1 Tobacco/Smoking Status: Tobacco use Status Tobacco use date assessed 01/04/23 03/27/23 08:45 Patient Tobacco Use Status Never used Tobacco 03/27/23 08:45 e-Cigarette/Vaping Use Never Used 03/27/23 08:45 Thrive Assessment: Date of Thrive Assessment Date Thrive assessed 01/04/23 03/27/23 08:45 Const Orientation/consciousness: patient oriented x3 HENMT Head: Yes normal to inspection, Yes normocephalic and Yes atraumatic Ears: external ears normal Eyes General: appearance normal, both eyes and all related structures Eyelids: Yes eyelids normal Conjunctivae: conjunctivae normal Neck Neck: Yes normal visual inspection and Yes supple Resp Effort & Inspection: normal respiratory effort Auscultation: clear to auscultation bilaterally Cardio Jugular venous distension: no JVD Rate: regular rate Rhythm: regular rhythm Heart sounds: S1 normal heart sound present and S2 normal heart sound present GI Inspection: Yes normal to inspection Palpation (GI): Soft to palpation and nontender Auscultation: normal bowel sounds Skin General skin exam: no rashes or lesions noted Neuro General: patient oriented x3 and no focal motor deficits Extrem General: Yes full ROM Psych Appearance: grossly normal Assessment and Plan Assessment & Plan (1) Physical exam: Code(s): Z00.00 - Encounter for general adult medical examination without abnormal findings Plan: Repeat in a year. Medications: New escitalopram oxalate 5 mg PO BEDTIME 90 tabs 0RF 90 days F41.1 - Generalized anxiety disorder diclofenac sodium 1% (Arthritis Pain (diclofenac)) apply to single elbow, wrist or hand; for hand includes palm/fingers/back of hand 2 grams topical QID PRN 100 grams 0RF pain 30 days Discontinued naproxen Discontinued Reason: Patient Completed Course 500 mg PO BID 14 days PRN 28 tabs 0RF pain hydroxyzine HCl Discontinued Reason: Patient Completed Course 25 mg PO BEDTIME PRN 20 tabs 0RF anxiety F41.1 - Generalized anxiety disorder Coding Level of Care Code Est Pt Prev Care 40-64y(28680) Diagnoses Physical exam Z00.00 Time Spent (min) 31
== END 2023-03-27 09:05 | disposition home or self-care (01) ==
PROVIDERS: PCP Internal Medicine; Visit Provider Internal Medicine
DX: Z00.00 Encounter for general adult medical examination without abnormal findings (principal)
CPT/HCPCS: 99396

== ENCOUNTER 2023-05-02 08:57 | Outpatient (REF) | payer OTHER, SELFPAY ==
--- NOTE | ~2023-05-02 | MR_ITS ---
EXAMINATION: MR KNEE WITHOUT CONTRAST, LEFT CLINICAL INFORMATION: Left knee pain COMPARISON: Radiographs 02/16/2023. MRI 10/30/2016. TECHNIQUE: MRI of the knee without contrast was performed using routine sequences on a high-field scanner. FINDINGS: MENISCI: Medial Meniscus: Undersurface tearing of the meniscal body extending to the junction with the posterior horn with a portion of the meniscal undersurface displaced into the meniscotibial recess. This is similar to the previous study. There is also a small ill-defined inner margin tear of the posterior horn which is more conspicuous. Lateral Meniscus: Ill-defined degeneration of the anterior horn with fraying along the superior and inferior articular surfaces, new from previous MRI. LIGAMENTS: Cruciate: Mucoid degeneration of the ACL with reactive marrow changes at the tibial insertion. The PCL is intact. Collateral: Intact EXTENSOR MECHANISM: Intact ARTICULAR CARTILAGE/BONE: Patellofemoral Compartment: Cartilage fissuring and focal partial-thickness loss of the median ridge and medial facet of the patella with mild subchondral marrow edema, similar to previous. Medial Compartment: Cartilage thinning and surface irregularity throughout the weightbearing aspect has progressed. Small marginal osteophytes. Lateral Compartment: Cartilage irregularity including focal full-thickness loss along the lateral tibial spine with subchondral cysts and marrow edema has progressed. Small marginal osteophytes. JOINT FLUID AND BURSAE: Trace joint effusion. MR/MR knee LT wo con IMPRESSION: 1. Undersurface tearing of the medial meniscus body extending to the junction with the posterior horn with a portion of the meniscal undersurface displaced into the meniscotibial recess, similar to previous. There is also a small ill-defined inner margin tear of the posterior horn which is more conspicuous. 2. Ill-defined degeneration of the anterior horn of the lateral meniscus with fraying along the superior and inferior articular surfaces, new from previous. 3. Mucoid degeneration of the ACL. 4. Mild tricompartmental osteoarthritis with a trace joint effusion.
== END 2023-05-02 08:58 | disposition home or self-care (01) ==
LOC: HO.MRI 08:57
PROVIDERS: PCP Internal Medicine; Visit Provider Physician Assistant
DX: M17.12 Unilateral primary osteoarthritis, left knee (principal)
CPT/HCPCS: 73721

== ENCOUNTER 2023-05-30 08:37 | Outpatient (AMB) | payer OTHER, SELFPAY ==
--- NOTE | 2023-05-30 08:38 | A.OFFVIS_ITS ---
Intake Vital Signs 05/30/23 08:40 Height 5 ft 11 in Weight 187 lb BMI 26.1 Intake Visit Reasons: OV, MRI review Intake Note: Rm rajan 57 year old male presents today for an MRI review of left knee, last injection 02/16/23. Patient reports injection provided little relief, states pain has moved up his leg. Allergies No Known Allergies Allergy (Verified 05/30/23 08:42) HPI OV, MRI review HPI Details 58-year-old male who returns to the [facility] today for an MRI review of left knee. He continues to have pain in his left knee which has now moved up his leg. He had his last injection on 02/16/23 which provided him mild relief for about 2 weeks. He states he is limited with daily activities, he cannot play basketball or perform stair use without pain. He has not had physical therapy in the past. [facility] Medical History Arthritis Cervicalgia VENKAT (generalized anxiety disorder) Mild major depression, single episode Physical exam Protrusion of intervertebral disc Right shoulder pain Urinary dribbling Surgical History Hx of colonoscopy History of rotator cuff surgery Family History Father Prostate cancer Mother Thyroid disease Son Aplastic anemia Social History Household Members: Spouse Housing: House Alcohol intake: current Alcohol intake frequency: a few times a month Alcohol type: beer Patient Tobacco Use Status: Never used Tobacco e-Cigarette/Vaping Use: Never Used Second Hand Smoke Exposure: Yes service: No Current occupational status: employed Current occupational exposures/hazards: No Cognitive needs: No Hearing needs: No Vision needs: Yes Review of Systems Const All systems reviewed & are unremarkable except as noted in HPI and below Physical Exam Vital Signs: BMI result Body Mass Index 26.1 Const General: cooperative and no acute distress Orientation/consciousness: patient oriented x3 Resp Effort & Inspection: normal respiratory effort and able to speak in complete sentences Cardio Peripheral pulses: Peripheral pulses 2+ throughout Neuro General: patient oriented x3 Extrem Other: Bilateral knee: Skin intact, no erythema or joint effusion. Tenderness along the medial joint line. Full ROM with crepitus. Negative Андрей?s. No ligamentous laxity. NVI. Results Reviewed Results Reviewed: MRI Left knee 05/02/23 IMPRESSION: 1. Undersurface tearing of the medial meniscus body extending to the junction with the posterior horn with a portion of the meniscal undersurface displaced into the meniscotibial recess, similar to previous. There is also a small ill-defined inner margin tear of the posterior horn which is more conspicuous. 2. Ill-defined degeneration of the anterior horn of the lateral meniscus with fraying along the superior and inferior articular surfaces, new from previous. 3. Mucoid degeneration of the ACL. 4. Mild tricompartmental osteoarthritis with a trace joint effusion. Assessment & Plan Assessment & Plan (1) Chondromalacia of left patellofemoral joint: Code(s): M22.42 - Chondromalacia patellae, left knee Plan We discussed his MRI findings which do show meniscus pathology however he does have some tricompartmental OA. He states that he is limited with activities and has stopped doing some things like going to the gym and playing sports due to his chronic knee pain. I did explain to him the option of going forward with knee arthroscopy vs benefits of TKA. It is unclear exactly how severe his arthritis is and how much it is limiting him and what would benefit him at this time. Therefore, he will see Dr. Antoine to discuss further options. In the meantime, the patient was given a handout of some home exercises since he is currently in therapy for his right shoulder and I also asked that he pays attention to how limited he feels with this knee. He is content with this plan and will follow-up as discussed. Patient Instructions: Scribed for Carmelina No PA-C, by Jonathan Dennis medical record coder, on 05/30/2023 at 8:30 AM EMETERIO. Vida, Carmelina No PA-C, have personally reviewed and agree with the information entered by the scribe. Coding Level of Care Code Est Pt Level 3 (49888) Diagnoses Chondromalacia of left patellofemoral joint M22.42
[2023-05-30 08:40] VITALS: BMI 26.1
== END 2023-05-30 09:01 | disposition home or self-care (01) ==
PROVIDERS: PCP Internal Medicine; Visit Provider Physician Assistant
DX: M22.42 Chondromalacia patellae, left knee (principal)
CPT/HCPCS: 99213

== ENCOUNTER → 2023-05-30 08:37 | Outpatient (BNVA) | payer OTHER, SELFPAY | PROVIDERS: PCP Internal Medicine; Visit Provider Physician Assistant | DX: M22.42 Chondromalacia patellae, left knee (principal) | CPT/HCPCS: 99212 ==

== ENCOUNTER 2023-05-31 11:14 | Outpatient (AMB) | payer OTHER, SELFPAY ==
[2023-05-31 11:17] VITALS: BP 122/80; PULSE 78; O2SAT 98; BMI 26.4
--- NOTE | 2023-05-31 11:17 | MHC.PC.OV ---
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 Accompanied by: Self / Same As Patient Allergies No Known Allergies Allergy (Verified 05/31/23 11:35) Medication List - Last Reconciled 05/31/23 by Larissa Piedra MD cholecalciferol (vitamin D3) 25 mcg PO DAILY diclofenac sodium 1% (Arthritis Pain (diclofenac)) 2 grams topical QID PRN 30 days escitalopram oxalate 5 mg PO BEDTIME 90 days miscellaneous medical supply (Blood Pressure Cuff) As directed Tobacco use date assessed: 01/04/23 Dental Screening Dental Screen Date: 05/31/23 Did you have a dental visit in the last 12 months?: Yes Did you have a dental problem in the last 6 months where you did not have access to dental care?: No Was dental information given to patient?: Patient has dentist HPI HPI Comments History of Present Illness Details This is a 58-year-old male with mild major depression, left renal cyst and low vitamin-D that complains of low back pain radiating to the right leg that has been present for few weeks. No fever, bowel or bladder incontinence. Denies any previous trauma. Will order x-ray and send him to physical therapy. Straight leg test was positive on the right. Depression still present even with escitalopram 5 mg and I will increase it to 10 mg. He has been follow by counseling. Has a cyst in left kidney and this will be evaluated with ultrasound. On vitamin-D supplements for vitamin-D deficiency. [facility] Medical History (Updated 05/31/23 @ 11:48 by Larissa Piedra MD) VENKAT (generalized anxiety disorder) Mild major depression, single episode Protrusion of intervertebral disc Right shoulder pain Urinary dribbling Arthritis Cervicalgia Physical exam Surgical History Hx of colonoscopy History of rotator cuff surgery Family History Father Prostate cancer Mother Thyroid disease Son Aplastic anemia Social History Household Members: Spouse Housing: House Alcohol intake: current Alcohol intake frequency: a few times a month Alcohol type: beer Patient Tobacco Use Status: Never used Tobacco e-Cigarette/Vaping Use: Never Used Second Hand Smoke Exposure: Yes service: No Current occupational status: employed Current occupational exposures/hazards: No Cognitive needs: No Hearing needs: No Vision needs: Yes Questionnaire Thrive Questionnaire Date Thrive assessed: 01/04/23 VNEKAT-7 AMB Questionnaire VENKAT-7 Date VENKAT - 7 assessed: 01/04/23 Source: Developed by Drs. Wu Moreno, Jazzy Aparicio, Desmond Huynh and colleagues, with an educational jr from [employer]. Review of Systems Const All systems reviewed & are unremarkable except as noted in HPI and below Eyes Reports no additional complaints, Denies change in vision and Denies other visual disturbances Card Denies chest pain at rest, Denies chest pain with activity, Denies edema, Denies irregular heart rhythm, Denies claudication, Denies dyspnea, Denies dyspnea on exertion, Denies orthopnea, Denies paroxysmal nocturnal dyspnea and Denies slow heart rate Resp Denies cough, Denies dyspnea and Denies dyspnea on exertion GI Denies abdominal pain, Denies change in bowel habits, Denies excessive flatus, Denies nausea and Denies vomiting Denies urinary hesitancy, Denies urinary incontinence and Denies urinary urgency Musc Denies abnormal gait, Reports back pain, Denies atrophy, Denies deformity and Denies limited range of motion Skin/Breast Denies bleeding lesions, Denies changing lesions and Denies rash Neuro Denies abnormal gait and Denies lack of coordination Physical exam (Primary Care) Vital Signs: Last Vital Signs Pulse 78 05/31/23 11:17 BP 122/80 05/31/23 11:17 Pulse Ox 98 05/31/23 11:17 Oxygen Delivery Method Room Air 05/31/23 11:17 BMI result Body Mass Index 26.4 Tobacco/Smoking Status: Tobacco use Status Tobacco use date assessed 01/04/23 05/31/23 11:24 Patient Tobacco Use Status Never used Tobacco 05/31/23 11:24 e-Cigarette/Vaping Use Never Used 05/31/23 11:24 Thrive Assessment: Date of Thrive Assessment Date Thrive assessed 01/04/23 05/31/23 11:24 Eyes General: appearance normal, both eyes and all related structures Eyelids: Yes eyelids normal Conjunctivae: conjunctivae normal Neck Neck: Yes normal visual inspection and Yes supple Resp Effort & Inspection: normal respiratory effort Auscultation: clear to auscultation bilaterally Cardio Jugular venous distension: no JVD Rate: regular rate Rhythm: regular rhythm Heart sounds: S1 normal heart sound present and S2 normal heart sound present Back/Spine/Pelvis Thoracic/Lumbar Spine: straight leg raise positive right Extrem General: Yes full ROM Office Procedures Flu Questionnaire Does the patient have a severe egg allergy?: No Immunizations flu vacc [id number] 6mos up(PF) 60 mcg(15 mcgx4)/0.5 mL IM syringe Performing Provider: Larissa Piedra MD [facility] Documented (not given) by: ANDERS Dickerson on 05/31/23 12:01 Reason Not Given: Not Given Assessment and Plan Assessment & Plan (1) Mild major depression, single episode: Code(s): F32.0 - Major depressive disorder, single episode, mild Plan: Increase escitalopram from 5 mg to 10 mg. Continue counseling. (2) Right sciatic nerve pain: Code(s): M54.31 - Sciatica, right side Plan: Start physical therapy. X-ray ordered. (3) Renal cyst, left: Code(s): N28.1 - Cyst of kidney, acquired Plan: Ultrasound order. (4) Low vitamin D level: Code(s): R79.89 - Other specified abnormal findings of blood chemistry Plan: Continue vitamin-D supplements. Orders: Orders Influenza [id number] Immunization Today Z23 - Encounter for immunization US renal BI Today N28.1 - Cyst of kidney, acquired XR lumbar spine 2-3V Today M54.31 - Sciatica, right side PT Evaluation and Treatment Today M54.31 - Sciatica, right side Medications: New escitalopram oxalate 10 mg PO DAILY 90 tabs 1RF 90 days Discontinued escitalopram oxalate Discontinued Reason: Patient Completed Course 5 mg PO BEDTIME 90 days 90 tabs 0RF F41.1 - Generalized anxiety disorder Coding Level of Care Code Est Pt Level 4 (62495) Diagnoses Mild major depression, single episode F32.0 Right sciatic nerve pain M54.31 Renal cyst, left N28.1 Low vitamin D level R79.89 Time Spent (min) 24
== END 2023-05-31 12:02 | disposition home or self-care (01) ==
PROVIDERS: PCP Internal Medicine; Visit Provider Internal Medicine
DX: F32.0 Major depressive disorder, single episode, mild (principal); M54.31 Sciatica, right side; N28.1 Cyst of kidney, acquired; R79.89 Other specified abnormal findings of blood chemistry
CPT/HCPCS: 99214

== ENCOUNTER 2023-05-31 12:07 | Outpatient (REF) | payer OTHER, SELFPAY ==
--- NOTE | ~2023-05-31 | XR_ITS ---
EXAMINATION: XR LUMBOSACRAL SPINE CLINICAL INFORMATION: Sciatica right side. COMPARISON: X-ray lumbar spine 10/05/2020. MR lumbar spine 03/08/2021. TECHNIQUE: 3 views of the lumbosacral spine. FINDINGS: Mild levoscoliosis of the lumbar spine. Degenerative changes with sclerosis in the bilateral sacroiliac joints. Facet arthritis in the lower lumbar spine. Mild multilevel lumbar spondylosis with mild loss of disc space height at L5-S1. Minimal grade 1 anterolisthesis of L4 on L5 redemonstrated. XR/XR lumbar spine 2-3V IMPRESSION: Mild multilevel lumbar spondylosis with progression of mild degenerative changes at L5-S1.
== END 2023-05-31 12:08 | disposition home or self-care (01) ==
LOC: HO.XRAY 12:07
PROVIDERS: PCP Internal Medicine; Visit Provider Internal Medicine
DX: M54.31 Sciatica, right side (principal)
CPT/HCPCS: 72100

== ENCOUNTER 2023-06-14 11:12 | Outpatient (AMB) | payer OTHER, SELFPAY ==
--- NOTE | 2023-06-14 11:28 | A.OFFVIS_ITS ---
Intake Intake Visit Reasons: OV-Lt knee discuss knee vs TKA -MRI done Intake Note: Rm is a 58 year old male who presents today for surgical discussion of the the left knee. He was last seen with TM who reviewed MRI giving patient option of Arthroscopy vs Arthroplasty. Injection done 02/16/23 Allergies No Known Allergies Allergy (Verified 05/31/23 11:35) HPI OV-Lt knee discuss knee vs TKA -MRI done HPI Details Rm is a 58 year old man who presents for an MRI review of his left knee. He has pain with daily activity, worse with twisting motions or using stairs. He says his pain is mostly in the posterior of his knee, along with swelling. He says he is unable to play Basketball or Soccer, and has difficulties trying to exercise at the gym. He finds running is difficult for him. He was given a knee injection on 02/16/23 by ANGELES No, which he says gave him ~2 weeks of relief. He works for [employer] and says his job involves a large amount of heavy lifting activities, which is difficult for him. COUNT INCLUDES THE [facility] Medical History VENKAT (generalized anxiety disorder) Mild major depression, single episode Protrusion of intervertebral disc Right shoulder pain Urinary dribbling Arthritis Cervicalgia Physical exam Surgical History Hx of colonoscopy History of rotator cuff surgery Family History Father Prostate cancer Mother Thyroid disease Son Aplastic anemia Social History Household Members: Spouse Housing: House Alcohol intake: current Alcohol intake frequency: a few times a month Alcohol type: beer Patient Tobacco Use Status: Never used Tobacco e-Cigarette/Vaping Use: Never Used Second Hand Smoke Exposure: Yes service: No Current occupational status: employed Current occupational exposures/hazards: No Cognitive needs: No Hearing needs: No Vision needs: Yes Review of Systems Const All systems reviewed & are unremarkable except as noted in HPI and below Physical Exam Const General: no acute distress, alert and awake Orientation/consciousness: patient oriented x3 HEENT Head: Yes normocephalic and Yes atraumatic Eyes EOM: EOMs intact bilaterally Resp Effort & Inspection: normal respiratory effort and able to speak in complete sentences Cardio Jugular venous distension: no JVD Skin General skin exam: turgor normal Rashes: no rashes Neuro General: patient oriented x3 Extrem Other: Left Knee: minimal to no pain in knee. Neg Steinmen's and no effusion There is a large lipomatous lesion over distal lateral thigh. Non tender Full knee ROM Psych Appearance: grossly normal Affect: normal affect Attitude: cooperative Results Reviewed Results Reviewed: I personally reviewed relevan 1. Undersurface tearing of the medial meniscus body extending to the junction with the posterior horn with a portion of the meniscal undersurface displaced into the meniscotibial recess, similar to previous. There is also a small ill-defined inner margin tear of the posterior horn which is more conspicuous. 2. Ill-defined degeneration of the anterior horn of the lateral meniscus with fraying along the superior and inferior articular surfaces, new from previous. 3. Mucoid degeneration of the ACL. 4. Mild tricompartmental osteoarthritis with a trace joint effusion. Addendum: This study is reviewed at the request of the referring clinician with regards to the lateral thigh lipoma. Not included in the original report is the presence of a large fatty lesion at the anterolateral aspect of the distal thigh which appears to be deep to the vastus lateralis muscle, extending distally deep to the lateral retinaculum. This mass is predominantly fat signal, with faint linear signal internally. This is only partially imaged, measuring 3.8 x 6.4 cm in transverse dimensions and greater than 6 cm in length, extending proximally beyond the imaged [id number]. No solid or cystic component is demonstrated included. Only 10/30/2016 study, maximal transverse measurements of the included portion were 3.1 x 5.2 cm, also extending proximally beyond the imaged [id number]. Due to the increase in size, the overall large size, and incomplete coverage of the fatty mass, an MRI without and with contrast of the left thigh is recommended to further evaluate. Assessment & Plan Assessment & Plan (1) Lipoma of left lower extremity: Code(s): D17.24 - Benign lipomatous neoplasm of skin and subcutaneous tissue of left leg Plan: This is a 58 year old man with a left knee lipoma. It is incompletely evaluated with MRI and he has pain with daily activity, along with swelling, worse with sports, and using stairs. He found some relief from a steroid injection on 02/16/23. I discussed his diagnosis and treatment options. No orthopedic intervention required at this time but I recommend (as per radiolgoist) a MRI of distal femur with and without contrast. (2) Tear of meniscus of left knee: Code(s): S83.207A - Unspecified tear of unspecified meniscus, current injury, left knee, initial encounter (3) Osteoarthritis of left knee: Code(s): M17.12 - Unilateral primary osteoarthritis, left knee Plan Scribed for Tino Antoine MD by Tani Sagastume, medical review coordinator, on 06/14/23 at 11:45 AM, EST. Coding Level of Care Code Est Pt Level 4 (38901) Diagnoses Lipoma of left lower extremity D17.24 Tear of meniscus of left knee S83.207A Osteoarthritis of left knee M17.12
== END 2023-06-14 12:20 | disposition home or self-care (01) ==
PROVIDERS: PCP Internal Medicine; Visit Provider Orthopaedic Surgery
DX: D17.24 Benign lipomatous neoplasm of skin and subcutaneous tissue of left leg (principal); S83.207A Unspecified tear of unspecified meniscus, current injury, left knee, initial encounter; M17.12 Unilateral primary osteoarthritis, left knee
CPT/HCPCS: 99213

== ENCOUNTER → 2023-06-14 11:12 | Outpatient (BNVA) | payer OTHER, SELFPAY | PROVIDERS: PCP Internal Medicine; Visit Provider Orthopaedic Surgery | DX: S83.207D Unspecified tear of unspecified meniscus, current injury, left knee, subsequent encounter (principal); M17.12 Unilateral primary osteoarthritis, left knee; D17.24 Benign lipomatous neoplasm of skin and subcutaneous tissue of left leg | CPT/HCPCS: 99212 ==

== ENCOUNTER 2023-06-19 12:46 | Outpatient (REF) | payer OTHER, SELFPAY ==
--- NOTE | ~2023-06-19 | US_ITS ---
EXAMINATION: US RETROPERITONEAL LIMITED (RENAL ONLY) CLINICAL INFORMATION: Cyst of kidney, acquired. COMPARISON: None available. TECHNIQUE: Real-time imaging of the kidneys. Limited visualization due to bowel gas. FINDINGS: RIGHT KIDNEY: 11.4 x 7.1 x 6.1 cm (SAG x AP x TRV). No hydronephrosis. No renal calculi. Limited visualization. Right renal 1.8 x 1.2 x 1.5 cm anechoic fluid collection is difficult to characterize due to the limited visualization and may represent a parapelvic cyst versus mild fullness of the right renal collecting system. LEFT KIDNEY: 12.7 x 5.9 x 6.5 cm (SAG x AP x TRV). No hydronephrosis. No renal calculi. Limited visualization. Left renal 2.4 x 1.9 x 2.3 cm anechoic peripelvic fluid collection difficult to characterize due to the limited visualization and may represent a septated parapelvic cyst, 2 adjacent parapelvic cysts , septated cyst or combination with mild fullness of the left renal collecting system. US/US renal BI IMPRESSION: Possible bilateral peripelvic cysts versus mild fullness of the bilateral renal collecting systems difficult to characterize due to severely limited visualization. CT scan with intravenous contrast recommended for further evaluation.
== END 2023-06-19 12:47 | disposition home or self-care (01) ==
LOC: HO.US 12:46
PROVIDERS: PCP Internal Medicine; Visit Provider Internal Medicine
DX: N28.1 Cyst of kidney, acquired (principal)
CPT/HCPCS: 76775

== ENCOUNTER 2023-06-20 10:22 | Outpatient (AMB) | payer OTHER, SELFPAY ==
[2023-06-20 10:23] VITALS: BP 144/90; BMI 26.4
--- NOTE | 2023-06-20 10:23 | HO.NEPHOV_ITS ---
HPI HPI Comments History of Present Illness Details Rm was seen consultation to evaluate for eligibility to donate one of his kidneys to his friend in [place]. He is not diabetic or hypertensive. His renal functions had been normal. He has no history of vas cular disease, proteinuria, hematuria, edema, history of malignancy, history of liver disease. He has no history of hepatitis or HIV. He had extensive workup done in [place]. He was found to have a renal cyst. He even underwent CT angiography in [facility]. He never had a MRI. He recently had a renal ultrasound which showed parapelvic cyst. He is not a smoker. He has no history of lung disease, coronary artery disease, weight loss, prostate cancer or any other systemic major illness. He had some depression which was treated. He stays his mental health is being followed up closely. He is anxious whether he can give that kidney donation in [facility] but does not want to undergo all the workup he had in [place] again. He denies any nausea, vomiting, diarrhea, chest pain, shortness of breath, proximal nocturnal dyspnea, orthopnea, pedal edema, urinary symptoms, hematuria, weight loss. His serum creatinine has been normal. [facility] Medical History VENKAT (generalized anxiety disorder) Mild major depression, single episode Protrusion of intervertebral disc Right shoulder pain Urinary dribbling Arthritis Cervicalgia Physical exam Surgical History Hx of colonoscopy History of rotator cuff surgery Family History Father Prostate cancer Mother Thyroid disease Son Aplastic anemia Household Members: Spouse Housing: House Alcohol intake: current Alcohol intake frequency: a few times a month Alcohol type: beer Patient Tobacco Use Status: Never used Tobacco e-Cigarette/Vaping Use: Never Used Second Hand Smoke Exposure: Yes service: No Current occupational status: employed Current occupational exposures/hazards: No Cognitive needs: No Hearing needs: No Vision needs: Yes Vital Signs 06/20/23 10:23 Height 5 ft 11 in Weight 189 lb 6 oz BMI 26.4 BP 144/90 H Blood Pressure Location Lt brachial Position Sitting Physical Exam Vital Signs: Last Vital Signs BP 144/90 H 06/20/23 10:23 BMI result Body Mass Index 26.4 Const General: comfortable and no acute distress Orientation/consciousness: patient oriented x3 HEENT Head: Yes normocephalic Mouth: Normal oral and palatal mucosa present Eyes EOM: EOMs intact bilaterally Neck Neck: Yes supple Resp Auscultation: clear to auscultation bilaterally Cardio Jugular venous distension: no JVD Rate: regular rate GI Palpation (GI): Soft to palpation Auscultation: normal bowel sounds General: Yes no CVA tenderness Back/Spine/Pelvis Back: no CVA tenderness Skin General skin exam: no rashes or lesions noted Neuro General: patient oriented x3 and moves all extremities Extrem General: Yes no pedal edema Assessment & Plan Assessment & Plan (1) Encounter for donation of kidney: Code(s): Z52.4 - Kidney donor (2) Renal cyst, left: Code(s): N28.1 - Cyst of kidney, acquired Plan Rm came in for evaluation for donation of one of his kidneys to his friend in [place]. He had extensive workup in [place], including CT angiography to look at the blood vessels of his kidney. He says he has a metal in the body and could not undergo MRA. He has no history of renal function abnormality, hematuria or proteinuria. He has no family history of any renal disease. He is not diabetic or hypertensive. He is not aware yet whether the transplant review committee in [place] has cleared him for kidney donation. He does not want to undergo all the testing again in the main land of [facility]. He needs to be cleared from mental health point of view for kidney donation. Otherwise he seems to be a great candidate. More testing including had HLA typing, cross matching etc, I hope will happen in [facility] if he is cleared for donation. He is clearly aware of the risk involved in donation including loss of GFR for the other kidney due to unexpected etiology, potential for development of proteinuria and hypertension. He expressed that he wants to help his friend badly. He mentioned he is doing out of [place] and not at pressure from anyone. Transplant surgeons need to agree in [place] whether they are willing to take his kidney given history of parapelvic cysts. All his questions and concerns were addressed. I asked him to maintain good hydration, avoid nonsteroidal anti-inflammatory medications, prevent weight gain and monitor his blood pressure very closely. He wants me to follow-up of his renal cysts which they agreed. I also told him that I am happy to talk to the transplant surgeons/transplant team in [place] if needed. Time spent for the entire encounter, reviewing all the data, documentation 63 minutes. Coding Level of Care Code New Pt Level 4 (45869) Diagnoses Encounter for donation of kidney Z52.4 Renal cyst, left N28.1
== END 2023-06-20 11:09 | disposition home or self-care (01) ==
LOC: HO.HKA 10:22
PROVIDERS: PCP Internal Medicine; Visit Provider Internal Medicine Nephrology
DX: N28.1 Cyst of kidney, acquired (principal); Z00.5 Encounter for examination of potential donor of organ and tissue
CPT/HCPCS: 99204

== ENCOUNTER → 2023-06-20 10:22 | Outpatient (BNVA) | payer OTHER, SELFPAY | PROVIDERS: PCP Internal Medicine; Visit Provider Internal Medicine Nephrology | DX: N28.1 Cyst of kidney, acquired (principal) | CPT/HCPCS: 99202 ==

== ENCOUNTER 2023-08-31 16:03 | Outpatient (REF) | payer OTHER, SELFPAY ==
--- NOTE | ~2023-08-31 | MR_ITS ---
EXAMINATION: MR FEMUR WITHOUT AND WITH CONTRAST, LEFT CLINICAL INFORMATION: Large fatty lesion at the anterolateral aspect of the left distal thigh which appears deep to the vastus lateralis extending deep to the lateral retinaculum. COMPARISON: Left knee MRI dated 05/02/2023. TECHNIQUE: Multisequence MR imaging of the left femur was obtained before and after the IV administration of 7.5 mL Gadavist contrast on a high-field strength scanner. FINDINGS: BONE: No acute osseous injury. No fracture or dislocation. No concerning lytic or blastic osseous lesion. No postcontrast marrow enhancement. Mild degenerative cystic change redemonstrated within the tibial spine. MUSCLES/TENDONS: Deep to the vastus intermedius and vastus lateralis muscles along the anterolateral aspect of the distal femur, there is an encapsulated, fat signal focus measuring up to 7.0 x 6.1 x 12.2 cm, consistent with an intramuscular lipoma. No postcontrast enhancement or soft tissue component. No associated inflammatory change. Otherwise, the visualized muscles and tendons are intact. No transverse tendon tear or tendon retraction. LIGAMENTS: Intra-articular knee ligaments intact on large [id number] imaging. SOFT TISSUES: No additional soft tissue mass or fluid collection. Trace joint effusion. No enhancing soft tissue lesion. MR/MR femur LT wo/w con IMPRESSION: 1. Intramuscular lipoma along the anterolateral aspect of the distal femur measuring up to 12.2 cm. No postcontrast enhancement or soft tissue component. No associated inflammatory change. 2. No acute osseous abnormality. No concerning lytic or blastic osseous lesion. 3. Trace joint effusion.
[2023-08-31] MEDS: gadobutroL 7.5 ML VIAL IVPUSH (16:54)
== END 2023-08-31 16:04 | disposition home or self-care (01) ==
LOC: HO.MRI 16:03
PROVIDERS: PCP Internal Medicine; Visit Provider Physician Assistant
DX: D17.24 Benign lipomatous neoplasm of skin and subcutaneous tissue of left leg (principal)
CPT/HCPCS: 73720; A9585

== ENCOUNTER 2023-09-14 15:22 | Outpatient (AMB) | payer OTHER, SELFPAY ==
--- NOTE | 2023-09-14 15:23 | A.OFFVIS_ITS ---
Intake Vital Signs 09/14/23 15:24 Height 5 ft 11 in Weight 189 lb BMI 26.4 Intake Visit Reasons: knee LT mri review Intake Note: Araceli 58 year old male scheduled today for a telehealth visit to review MRI of left knee. Patient reports no change in his symptoms, stating he continues to have pain. Allergies No Known Allergies Allergy (Verified 09/20/23 08:45) HPI knee LT mri review HPI Details Patient presents for MRI review via telehealth. he states he still has irritation around the thigh as though the muscle is irritated. [facility] Medical History VENKAT (generalized anxiety disorder) Mild major depression, single episode Protrusion of intervertebral disc Right shoulder pain Urinary dribbling Arthritis Cervicalgia Physical exam Surgical History Hx of colonoscopy History of rotator cuff surgery Family History Father Prostate cancer Mother Thyroid disease Son Aplastic anemia Social History Household Members: Spouse Housing: House Alcohol intake: current Alcohol intake frequency: a few times a month Alcohol type: beer Patient Tobacco Use Status: Never used Tobacco e-Cigarette/Vaping Use: Never Used Second Hand Smoke Exposure: Yes service: No Current occupational status: unemployed Cognitive needs: No Hearing needs: No Vision needs: Yes Review of Systems Const All systems reviewed & are unremarkable except as noted in HPI and below Physical Exam Vital Signs: BMI result Body Mass Index 26.4 Resp Effort & Inspection: normal respiratory effort and able to speak in complete sentences Results Reviewed Results Reviewed: MR femur LT wo/w con IMPRESSION: 1. Intramuscular lipoma along the anterolateral aspect of the distal femur measuring up to 12.2 cm. No postcontrast enhancement or soft tissue component. No associated inflammatory change. 2. No acute osseous abnormality. No concerning lytic or blastic osseous lesion. 3. Trace joint effusion. Assessment & Plan Assessment & Plan (1) Lipoma of left lower extremity: Code(s): D17.24 - Benign lipomatous neoplasm of skin and subcutaneous tissue of left leg Plan: I discussed with the patient the results of the MRi which are consisted with a lipoma. I offered general surgery consult to discuss oiptions which include excision which he is interested in. He will see me back if symptoms arise with the knee pain, otherwise, prn. Orders: Referrals General Surgery Referral D17.24 - Benign lipomatous neoplasm of skin and subcutaneous tissue of left leg Telehealth Telehealth Location of provider rendering services: practice address Location of patient: address on file Patient Identification confirmed using: Name, : Yes Telehealth method: voice only Patient verbally consented to treatment: Yes Patient verbally consented to billing insurance company: Yes Patient informed of any privacy concerns related to visit: Yes Minutes spent on Phone/Video with Pt.: 10 Coding Level of Care Code Tele Est Pt Level 3 (25586) Diagnoses Lipoma of left lower extremity D17.24
[2023-09-14 15:24] VITALS: BMI 26.4
== END 2023-09-14 15:32 | disposition home or self-care (01) ==
LOC: HO.HOS 15:22
PROVIDERS: PCP Internal Medicine; Visit Provider Physician Assistant
DX: D17.24 Benign lipomatous neoplasm of skin and subcutaneous tissue of left leg (principal)
CPT/HCPCS: 99213

== ENCOUNTER → 2023-09-14 15:22 | Outpatient (BNVA) | payer OTHER, SELFPAY | PROVIDERS: PCP Internal Medicine; Visit Provider Physician Assistant ==

== ENCOUNTER 2023-09-20 08:16 | Outpatient (AMB) | payer OTHER, SELFPAY ==
--- NOTE | 2023-09-20 08:17 | A.OFFPC_ITS ---
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 Accompanied by: Self / Same As Patient Allergies No Known Allergies Allergy (Verified 09/20/23 08:45) Medication List - Last Reconciled 09/20/23 by Larissa Piedra MD diclofenac sodium 1% (Arthritis Pain (diclofenac)) 2 grams topical QID PRN 30 days escitalopram oxalate 10 mg PO DAILY 90 days hydroxyzine HCl 25 mg PO DAILY PRN melatonin 10 mg PO BEDTIME PRN miscellaneous medical supply (Blood Pressure Cuff) As directed Tobacco use date assessed: 09/20/23 Dental Screening Dental Screen Date: 09/20/23 Did you have a dental visit in the last 12 months?: Yes Did you have a dental problem in the last 6 months where you did not have access to dental care?: No Was dental information given to patient?: Patient has dentist HPI HPI Comments History of Present Illness Details This is a 58-year-old male with mild major depression, generalized anxiety disease, insomnia and right sciatic nerve pain that comes today for follow-up on his conditions. Depression stable with escitalopram. Still has some anxiety and insomnia. Try melatonin 5 mg at bedtime and slept 2 hours. I will start him on melatonin 10 mg. On hydroxyzine for anxiety as needed. I will refer him to pain management for his right sciatic nerve pain that comes disease of lumbar pain radiating to the right leg. Has an ultrasound of the [facility] showing parapelvic renal cyst and CT scan of abdomen and pelvis with IV contrast was recommended. [facility] Medical History (Updated 09/20/23 @ 09:20 by Larissa Piedra MD) VENKAT (generalized anxiety disorder) Mild major depression, single episode Protrusion of intervertebral disc Right shoulder pain Urinary dribbling Arthritis Cervicalgia Physical exam Surgical History Hx of colonoscopy History of rotator cuff surgery Family History Father Prostate cancer Mother Thyroid disease Son Aplastic anemia Social History Household Members: Spouse Housing: House Alcohol intake: current Alcohol intake frequency: a few times a month Alcohol type: beer Patient Tobacco Use Status: Never used Tobacco e-Cigarette/Vaping Use: Never Used Second Hand Smoke Exposure: Yes service: No Current occupational status: unemployed Cognitive needs: No Hearing needs: No Vision needs: Yes Questionnaire PHQ-9 Over the last 2 weeks, how often have you been bothered by any of the following problems? 1. Little interest or pleasure in doing things: more than half the days 2. Feeling down, depressed, or hopeless: more than half the days 3. Trouble falling or staying asleep, or sleeping too much: nearly every day 4. Feeling tired or having little energy: several days 5. Poor appetite or overeating: several days 6. Feeling bad about yourself - or that you are a failure or have let yourself or your family down: not at all 7. Trouble concentrating on things, such as reading the newspaper or watching television: several days 8. Moving or speaking so slowly that other people could have noticed. Or the opposite - being so fidgety or restless that you have been moving around a lot more than usual: several days 9. Thoughts that you would be better off or of hurting yourself in some way: not at all Total score: 11 Depression Screening Interpretation: Positive Depression Screening Follow-up: Existing condition and In treatment Depression Screening Done: Yes 33540 - PHQ-9 Billing: Yes Source: Developed by Drs. Wu Moreno, Jazzy Aparicio, Desmond Huynh and colleagues, with an educational jr from [employer]. Thrive Questionnaire Date Thrive assessed: 09/20/23 I am a: Patient What is your living situation today?: I have a steady place to live Within the past 12 months, did the food you bought not last and you didn't have the money to get more?: Never true Within the past 12 months, did you worry whether your food would run out before you got money to buy more?: Never true Do you have trouble paying for medicines?: No Do you have trouble getting transportation to medical appointments?: No Do you have trouble paying your heating and electricity bill?: No Do you have trouble taking care of your child, family member or friend?: No Do you have trouble with day-to-day activities such as bathing, preparing meals, shopping, managing finances, etc.?: No Are you currently unemployed and looking for a job?: No Are you interested in more education?: No Please select the resources that you would like help with: None Currently or been in a relationship where the following occur: no concerns reported THRIVE Score: 0 AUDIT C Alcohol Use Questionnaire (AUDIT-C) 1. How often do you have a drink containing alcohol?: Monthly or less 2. How many drinks containing alcohol do you have on a typical day when you are drinking?: 1 or 2 3. How often do you have six or more drinks on one occasion?: Never Total Score: 1 VENKAT-7 AMB Questionnaire VENKAT-7 Date VENKAT - 7 assessed: 09/20/23 Feeling nervous, anxious, or on edge: 2 = More than half the days Not being able to stop or control worryin = Several days Worrying too much about different things: 3 = Nearly every day Trouble relaxin = Several days Being so restless that it is hard to sit still: 1 = Several days Becoming easily annoyed or irritable: 1 = Several days Feeling afraid as if something awful might happen: 1 = Several days Total VENKAT-7 score (0-4 normal; 5-9 mild; 10-14 moderate; 15-21 severe): 10 Source: Developed by Drs. Wu Moreno, Jazzy Aparicio, Desmond Huynh and colleagues, with an educational jr from [employer]. VENKAT-7 Assessment Billing VENKAT-7 Assessment Tool: VENKAT-7 Assessment 78722 Review of Systems Const All systems reviewed & are unremarkable except as noted in HPI and below Eyes Reports no additional complaints, Denies change in vision and Denies other visual disturbances Card Denies chest pain at rest, Denies chest pain with activity, Denies edema, Denies irregular heart rhythm, Denies claudication, Denies dyspnea, Denies dyspnea on exertion, Denies orthopnea, Denies paroxysmal nocturnal dyspnea and Denies slow heart rate Resp Denies cough, Denies dyspnea and Denies dyspnea on exertion GI Denies abdominal pain, Denies change in bowel habits, Denies excessive flatus, Denies nausea and Denies vomiting Denies urinary hesitancy, Denies urinary incontinence and Denies urinary urgency Musc Denies abnormal gait, Reports back pain, Denies atrophy, Denies deformity and Denies limited range of motion Skin/Breast Denies bleeding lesions, Denies changing lesions and Denies rash Neuro Denies abnormal gait and Denies lack of coordination Psych Reports abnormal sleep pattern, Reports anxiety and Reports depression Physical exam (Primary Care) Vital Signs: Last Vital Signs BP 120/82 09/20/23 08:20 BMI result Body Mass Index 26.8 Tobacco/Smoking Status: Tobacco use Status Tobacco use date assessed 09/20/23 09/20/23 08:27 Patient Tobacco Use Status Never used Tobacco 09/20/23 08:18 e-Cigarette/Vaping Use Never Used 09/20/23 08:18 PHQ-9: PHQ-9 Score PHQ-9: Total score 11 09/20/23 08:55 Depression Screening Interpretation: Positive Depression Screening Follow-up: Existing condition and In treatment Thrive Assessment: Date of Thrive Assessment Date Thrive assessed 09/20/23 09/20/23 08:28 Currently or been in a relationship where the following occur: no concerns reported Eyes General: appearance normal, both eyes and all related structures Eyelids: Yes eyelids normal Conjunctivae: conjunctivae normal Neck Neck: Yes normal visual inspection and Yes supple Resp Effort & Inspection: normal respiratory effort Auscultation: clear to auscultation bilaterally Cardio Jugular venous distension: no JVD Rate: regular rate Rhythm: regular rhythm Heart sounds: S1 normal heart sound present and S2 normal heart sound present Extrem General: Yes full ROM Psych Affect: Anxious affect present Assessment and Plan Assessment & Plan (1) Mild major depression, single episode: Code(s): F32.0 - Major depressive disorder, single episode, mild Plan: Continue escitalopram. (2) VENKAT (generalized anxiety disorder): Code(s): F41.1 - Generalized anxiety disorder Plan: Continue hydroxyzine as needed. (3) Insomnia: Code(s): G47.00 - Insomnia, unspecified Qualifiers: Insomnia type: due to other mental disorder Qualified Code(s): F51.05 - Insomnia due to other mental disorder; F99 - Mental disorder, not otherwise specified Plan: Start melatonin 10 mg. (4) Right sciatic nerve pain: Code(s): M54.31 - Sciatica, right side Plan: Referred to pain management. (5) Parapelvic renal cyst: Code(s): N28.1 - Cyst of kidney, acquired Plan: CT scan of abdomen and pelvis with IV contrast ordered. Orders: Orders Lipid Panel Today E78.5 - Hyperlipidemia, unspecified CT abdomen w IV con Today N28.1 - Cyst of kidney, acquired Comprehensive [place]. Panel Fast Today M54.31 - Sciatica, right side Referrals Pain Management Referral M54.31 - Sciatica, right side Coding Level of Care Code Est Pt Level 4 (80704) Diagnoses Mild major depression, single episode F32.0 VENKAT (generalized anxiety disorder) F41.1 Insomnia due to other mental disorder F51.05; F99 Insomnia type: due to other mental disorder Right sciatic nerve pain M54.31 Parapelvic renal cyst N28.1 Additional Codes VENKAT-7 Assessment Billing - VENKAT-7 Assessment Tool: VENKAT-7 Assessment 99954 ([id number]) Time Spent (min) 24
[2023-09-20 08:20] VITALS: BP 120/82; BMI 26.8
== END 2023-09-20 08:57 | disposition home or self-care (01) ==
PROVIDERS: PCP Internal Medicine; Visit Provider Internal Medicine
DX: F32.0 Major depressive disorder, single episode, mild (principal); F41.1 Generalized anxiety disorder; F51.05 Insomnia due to other mental disorder; F99 Mental disorder, not otherwise specified; M54.31 Sciatica, right side; N28.1 Cyst of kidney, acquired
CPT/HCPCS: 99214

== ENCOUNTER 2023-10-05 10:28 | Outpatient (REF) | payer OTHER, SELFPAY ==
[2023-10-05 12:22] LABS: Alanine Aminotransferase 22 U/L (0-40); Albumin Level 4.4 g/dL (3.5-5.0); Alkaline Phosphatase 67 U/L (39-117); Anion Gap 12 (12-20); Aspartate Amino Transferase 18 U/L (5-37); Bilirubin Total 0.5 mg/dL (0.0-1.0); Blood Urea Nitrogen 17 mg/dL (9-16); Calcium 9.5 mg/dL (8.4-10.2); Carbon Dioxide 28 mmol/L (22-29); Chloride 105 mmol/L (96-108); Cholesterol 178 mg/dL (<200); Estimated Glomerular Filt Rate > 60; Glucose Fasting 103 mg/dL (60-99); HDL Cholesterol 33 mg/dL (>40); LDL Cholesterol Calculated 100 mg/dL (<100); Potassium 4.1 mmol/L (3.3-5.1); Sodium 141 mmol/L (135-145); Total Protein 7.6 g/dL (6.5-8.0); Triglycerides 226 mg/dL (<150)
== END 2023-10-05 10:29 | disposition home or self-care (01) ==
LOC: HO.LAB 10:28
PROVIDERS: PCP Internal Medicine; Visit Provider Internal Medicine
DX: M54.31 Sciatica, right side (principal); E78.5 Hyperlipidemia, unspecified
CPT/HCPCS: 36415; 80053; 80061

== ENCOUNTER 2024-02-19 09:57 | Outpatient (REF) | payer OTHER, SELFPAY ==
--- NOTE | ~2024-02-19 | CT_ITS ---
EXAMINATION: CT ABDOMEN WITH CONTRAST CLINICAL INFORMATION: Renal cyst. COMPARISON: No prior CT scan. Renal ultrasound dated June 19, 2023. TECHNIQUE: Contiguous axial thin section helical images of the abdomen were performed following the administration of oral contrast and 85 mL of Omnipaque 350 intravenous contrast. The data set was reformatted in the coronal and sagittal planes and reviewed on an independent workstation. This CT examination was performed using dose optimization techniques as appropriate, variously including the following: *Automated exposure control *Adjustment of mA and/or kV according to patient size (this includes techniques or standardized protocols for targeted exams where dose is matched to indication/reason for exam; i.e. extremities or head) *Use of iterative reconstruction technique DLP: 2 images 73 mGy-cm FINDINGS: LUNG BASES: The lung bases appear clear, with no evidence of inflammation or nodules. LIVER, GALLBLADDER, AND BILIARY TREE: The liver appears unremarkable in size, shape, and attenuation. No focal hepatic lesion or biliary ductal dilatation is appreciated. Unremarkable appearance of the gallbladder. PANCREAS: Unremarkable SPLEEN: Unremarkable ADRENAL GLANDS: Unremarkable KIDNEYS AND URETERS: 9 left parapelvic simple renal cysts for which no further dedicated follow-up imaging as indicated. Probable small, normal variant extrarenal pelves. 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 No hydronephrosis, hydroureter, or calculi seen. GASTROINTESTINAL TRACT: Diverticulosis predominantly involving the sigmoid colon. Concentric thickening and induration of fat in the region of sigmoid diverticula (for example, image 63, series 3). No abscess, free air, or free intraperitoneal fluid identified. Unremarkable appearance of the stomach and small bowel. Normal-appearing distal ileum and vermiform appendix. ABDOMINAL WALL: No significant hernia is appreciated. LYMPH NODES: No evidence of adenopathy by size criteria. VASCULAR: Normal variant left-sided IVC. OSSEOUS STRUCTURES: Mild lower lumbar degenerative change. CT/CT abdomen w IV con IMPRESSION: Incidentally visualized diverticulosis with concentric thickening of the sigmoid colon and induration of fat surrounding diverticula. Differential diagnosis includes, but is not limited to, diverticulitis. Recommend clinical correlation and follow-up to resolution to exclude occult malignancy. No evidence of urinary tract stone or hydronephrosis. Additional findings, as above. Dr. Aleman was directly informed of the findings by telephone at approximately 1:35 PM on March 30, 2024. Electronically signed by: Omar Edward MD 03/30/2024 01:35 PM EDT
[2024-02-19] MEDS: Barium Sulfate Oral (Berry) 450 ML ORAL.SUSP PO (11:40)
[2024-02-19] MEDS: iohexoL 350 MG/ML 100 ML INFUS..BTL 85 ML IV (11:41)
[2024-02-21 10:22] LABS: Creatinine POC 0.8 mg/dL (0.5-1.4); GFR POC > 60
== END 2024-02-19 09:58 | disposition home or self-care (01) ==
LOC: HO.CT 09:57
PROVIDERS: PCP Internal Medicine; Visit Provider Internal Medicine
DX: N28.1 Cyst of kidney, acquired (principal)
CPT/HCPCS: 74160; 82565; Q9967

== ENCOUNTER → 2024-04-25 10:24 | Day surgery (SDC) | payer OTHER, SELFPAY ==
[2024-04-25 10:31] VITALS: BP 134/83; PULSE 60; RESP 20; TEMP 36.9; O2SAT 98; BMI 26.2
--- NOTE | 2024-04-25 10:50 | HO.ANESPROP2 ---
Documented by User: Dayana Montalvo NP 04/24/24 09:51 HPI - Anesthesia Eval Consult details Narrative: 59yo M for Upper Endoscopy and Colonoscopy PMFSH Active Problems Active Problems: All Active Problems Abnormal CT of the abdomen (Acute) Insomnia (Acute) Parapelvic renal cyst (Acute) Encounter for donation of kidney (Acute) Lipoma of left lower extremity (Acute) Effusion, left knee (Acute) Osteoarthritis of left knee (Acute) Tear of meniscus of left knee (Acute) Renal cyst, left (Acute) Right sciatic nerve pain (Acute) Chondromalacia of left patellofemoral joint (Acute) Bilateral knee pain (Acute) Polyarthralgia (Acute) Low back pain (Acute) BPH w urinary obs/LUTS (Acute) Urinary hesitancy (Acute) Erectile dysfunction due to arterial insufficiency (Acute) SOB (shortness of breath) (Acute) Pleuritic pain (Acute) Left lumbar radiculopathy (Acute) Sacroiliac joint pain (Acute) Painful arc syndrome of right shoulder (Acute) Elevated blood pressure reading (Acute) Left hand pain (Acute) Adult BMI 26.0-26.9 kg/sq m (Acute) Physical exam (Acute) Muscle strain of left shoulder (Acute) Complete rotator cuff tear of left shoulder (Acute) Hypertriglyceridemia (Acute) Screening for hypothyroidism (Acute) Screening for diabetes mellitus (Acute) Pre-diabetes (Acute) Low vitamin D level (Acute) VENKAT (generalized anxiety disorder) (Acute) Mild major depression, single episode (Acute) Protrusion of intervertebral disc (Acute) Right shoulder pain (Acute) Urinary dribbling (Acute) Arthritis (Acute) Cervicalgia (Acute) Physical exam (Acute) Past Medical History Medical History VENKAT (generalized anxiety disorder) Mild major depression, single episode Protrusion of intervertebral disc Right shoulder pain Urinary dribbling Arthritis Cervicalgia Physical exam Family History Family History Father Prostate cancer Mother Thyroid disease Son Aplastic anemia Family history of problems with anesthesia: No Surgical History Surgical History Hx of colonoscopy History of rotator cuff surgery History of Problems with Anesthesia: No Social History Social History Household Members: Spouse Housing: House Alcohol intake: current Alcohol intake frequency: holidays/special occasions only Alcohol type: beer Patient Tobacco Use Status: Never used Tobacco e-Cigarette/Vaping Use: Never Used Second Hand Smoke Exposure: Yes Have you been hit, kicked, punched, or otherwise hurt by someone within the past year? If so, by whom?: No Are you DNR?: No Advance Directives: No Advance Directives Information Provided: Yes Nutrition Risks: No Nutritional Risk service: No Current occupational status: unemployed Cognitive needs: No Hearing needs: No Vision needs: Yes Meds Allergies Allergy/AdvReac Type Severity Reaction Status Date / Time No Known Allergies Allergy Verified 09/20/23 08:45 Exam Pertinent Lab Results Pertinent Lab Results: Laboratory Tests 03/02/23 10/05/23 10:34 10:39 WBC 7.5 Hgb 14.8 Hct 45.7 Plt Count 325 Sodium 141 Potassium 4.1 Chloride 105 Carbon Dioxide 28 BUN 17 H Creatinine 0.88 Assessment and Plan Assessment Anesthesia Assessment: Chart Reviewed Final Anesthetic Review Family History of Problems with Anesthesia: No History of Problems with Anesthesia: No Documented by User: Emily Deng DO 04/25/24 10:55 PMFSH Past Medical History Medical History VENKAT (generalized anxiety disorder) Mild major depression, single episode Protrusion of intervertebral disc Right shoulder pain Urinary dribbling Arthritis Cervicalgia Physical exam Family History Family History Father Prostate cancer Mother Thyroid disease Son Aplastic anemia Family history of problems with anesthesia: No Surgical History Surgical History Hx of colonoscopy History of rotator cuff surgery History of Problems with Anesthesia: No Social History Social History Household Members: Spouse Housing: House Alcohol intake: current Alcohol intake frequency: holidays/special occasions only Alcohol type: beer Patient Tobacco Use Status: Never used Tobacco e-Cigarette/Vaping Use: Never Used Second Hand Smoke Exposure: Yes Have you been hit, kicked, punched, or otherwise hurt by someone within the past year? If so, by whom?: No Are you DNR?: No Advance Directives: No Advance Directives Information Provided: Yes Nutrition Risks: No Nutritional Risk service: No Current occupational status: unemployed Cognitive needs: No Hearing needs: No Vision needs: Yes Meds Allergies Allergy/AdvReac Type Severity Reaction Status Date / Time No Known Allergies Allergy Verified 09/20/23 08:45 Exam Exam Date and Time: 04/25/24 1050 Height,Weight and Vital Signs: Height 5 ft 11 in Weight 85.275 kg Vital Signs Temperature 98.5 F 04/25/24 10:31 Pulse Rate 60 04/25/24 10:31 Respiratory Rate 20 04/25/24 10:31 Blood Pressure 134/83 04/25/24 10:31 Pulse Oximetry 98 04/25/24 10:31 Oxygen Delivery Method Room Air 04/25/24 10:31 Temperature 98.5 F 04/25/24 10:31 Pulse Rate 60 04/25/24 10:31 Respiratory Rate 20 04/25/24 10:31 Blood Pressure 134/83 04/25/24 10:31 Pulse Oximetry 98 04/25/24 10:31 Oxygen Delivery Method Room Air 04/25/24 10:31 Airway Mallampati Class: II TM Dist: >3cm Neck ROM: Full Loose/Missing/Broken Teeth: No (patient denies any lose or broken teeth) Heart: S1S2 Lungs: CTAB Assessment and Plan Assessment Anesthesia Assessment: Anesthesia Plan Discussed and Chart Reviewed Final Anesthetic Review Family History of Problems with Anesthesia: No History of Problems with Anesthesia: No NPO: Yes ASA Class: II Final Preanesthetic Review: No Changes in Pt Med Stat, Meds/Allgs Chart Reviewed, Consent Obtained/Reviewed and Anes Risks/Benef Reviewed Patient Risk: Low Procedure Risk: Low Anesthetic Plan Anesthetic Plan: MAC: and Agree w/ Assess. and Plan Disposition: Standard PACU
[2024-04-25] MEDS: Lactated Ringers 1,000 ML 100 ML IVCONT (10:55)
--- NOTE | 2024-04-25 12:17 | MHC.SHP ---
Pre-Procedural Eval Section A - 24 Hr Update-Section A only Date of Service: 04/25/24 The patient is an INPATIENT: No Changes since office visit: No Cold of Flu in the past 2 weeks, No New Medical Problems, No Changes in Medication and No Patient answered all questions The patient has been examined within 24 hours of the surgical procedure. The History & Physical has been completed within 30 days and I have reviewed it.: Yes Section B - Complete if H&P > 30 days Chief Complaint: Gastro-esophageal reflux disease without esophagit Allergies: Allergies Allergy/AdvReac Type Severity Reaction Status Date / Time No Known Allergies Allergy Verified 09/20/23 08:45 Plan I have reviewed the history and physical and performed a pertinent physical examination on my patient. No changes have occurred unless specified. Time Spent With Patient Time: Total time managing care of this patient today ____ minutes.
[2024-04-25 13:26] VITALS: BP 106/69; PULSE 52; RESP 16; TEMP 36.2; O2SAT 98
[2024-04-25 13:52] VITALS: BP 107/73; PULSE 55; RESP 18; TEMP 36.1; O2SAT 100
--- NOTE | 2024-04-25 14:41 | OP_ITS ---
DATE OF SERVICE: 04/25/2024 SURGEON: Krishan Ramon MD INDICATIONS: 1. Gastroesophageal reflux disease. 2. Abnormal CT scan of the colon. PREOPERATIVE DIAGNOSIS: POSTOPERATIVE DIAGNOSIS: PROCEDURE PERFORMED: Upper endoscopy with biopsy, colonoscopy to the cecum. ESTIMATED BLOOD LOSS: COMPLICATIONS: ANESTHESIA: Monitored anesthesia care. ASSISTANTS: SPECIMENS: DESCRIPTION OF PROCEDURE: A history and physical was performed. The risks and benefits of the procedure were explained to the patient and informed consent was obtained. The patient was placed in the left lateral decubitus position. The Olympus video gastroscope was introduced into the esophagus, stomach, and duodenum. Examination was performed and the scope was removed. He was repositioned for colonoscopy. A digital rectal exam was performed and was found to be normal. The Olympus pediatric video colonoscope was introduced into the rectum and advanced to the cecum. The cecum was identified by transillumination, palpation, and identification of ileocecal valve. Abdominal wall pressure was used to assist in advancement of the scope. Examination was performed and the scope was removed. He tolerated the procedure well and was returned to recovery area in stable condition. FINDINGS: Upper endoscopy, esophagus: The esophagus showed some mild nodularity at the EG junction. This was biopsied. No esophagitis was present. Stomach: The stomach showed several benign-appearing less than 5 mm polyps in the body and fundus consistent with fundic gland polyps. There was some linear erythema in the antrum consistent with gastritis. Biopsies were obtained from the antrum. Duodenum: The bulb and 2nd portion were normal. Colonoscopy: The terminal ileum was not examined. The visualized colonic mucosa was normal without evidence of masses or ulcers. No polyps were identified. There was mild sigmoid diverticulosis without evidence of diverticulitis, colitis, or mass lesion. Retroflexed examination showed some small internal hemorrhoids. IMPRESSION: 1. Gastritis. 2. Normal colonoscopy. RECOMMENDATIONS: 1. Follow up the biopsy results. 2. Repeat colonoscopy is recommended in 10 years for average-risk individuals. MD VANDANA Morales/JAVIER / [id number]
--- NOTE | 2024-05-01 10:57 | PM.GIPN ---
Subjective Subjective Date of Service: 05/01/24 Interval History: no bleeding overnight Critical Care Time (minutes): 0 Physical Exam Vital Signs: Vital Signs: Last Vital Signs Temp 97.0 F 04/25/24 13:52 Pulse 55 04/25/24 13:52 Resp 18 04/25/24 13:52 BP 107/73 04/25/24 13:52 Pulse Ox 100 04/25/24 13:52 O2 Del Method Room Air 04/25/24 13:52 O2 Flow Rate 3 04/25/24 13:26 BMI result Body Mass Index 26.2 Const: Other: alert, oriented GI: Other: abdomen is soft and nontender Procedures Date of Service Date of Service: 05/01/24 Progress Note: A&P Time Spent With Patient Time: Total time managing care of this patient today ____ minutes.
== END | disposition home or self-care (01) ==
PROVIDERS: PCP Internal Medicine; Visit Provider Internal Medicine Gastroenterology
PROC: (CPT 43239; principal; 2024-04-25 12:10)
DX: K31.7 Polyp of stomach and duodenum (principal); K29.60 Other gastritis without bleeding; K22.10 Ulcer of esophagus without bleeding; K22.9 Disease of esophagus, unspecified; K21.9 Gastro-esophageal reflux disease without esophagitis; K57.30 Diverticulosis of large intestine without perforation or abscess without bleeding; K64.8 Other hemorrhoids; R93.3 Abnormal findings on diagnostic imaging of other parts of digestive tract
CPT/HCPCS: 43239; 45378; 88305; 88313; 88342; J2250; J2704

== ENCOUNTER 2024-07-31 10:45 | Outpatient (REF) | payer OTHER, SELFPAY ==
[2024-07-31 11:48] LABS: Alanine Aminotransferase 27 U/L (0-40); Albumin Level 4.3 g/dL (3.5-5.0); Alkaline Phosphatase 72 U/L (39-117); Anion Gap 9 (12-20); Aspartate Amino Transferase 26 U/L (5-37); Bilirubin Total 0.5 mg/dL (0.0-1.0); Blood Urea Nitrogen 14 mg/dL (9-16); Calcium 8.7 mg/dL (8.4-10.2); Carbon Dioxide 28 mmol/L (22-29); Chloride 106 mmol/L (96-108); Cholesterol 177 mg/dL (<200); Estimated Glomerular Filt Rate > 60; Glucose Fasting 113 mg/dL (60-99); HDL Cholesterol 33 mg/dL (>40); LDL Cholesterol Calculated 103 mg/dL (<100); Sodium 139 mmol/L (135-145); Total Protein 7.3 g/dL (6.5-8.0); Triglycerides 209 mg/dL (<150)
== END 2024-07-31 10:46 | disposition home or self-care (01) ==
LOC: HO.LAB 10:45
PROVIDERS: PCP Internal Medicine; Visit Provider Internal Medicine
DX: N28.1 Cyst of kidney, acquired (principal); E78.5 Hyperlipidemia, unspecified
CPT/HCPCS: 36415; 80053; 80061

== ENCOUNTER 2024-09-24 16:45 | Outpatient (AMB) | payer OTHER, SELFPAY ==
[2024-09-24 16:52] VITALS: BP 124/80; PULSE 71; O2SAT 93; BMI 25.5
--- NOTE | 2024-09-24 16:52 | MHC.PC.OV ---
Vital Signs 09/24/24 16:52 Height 5 ft 11 in Weight 183 lb BMI 25.5 BP 124/80 Blood Pressure Location Lt brachial Position Sitting Pulse 71 Pulse Source Pulse Oximeter Pulse Oximetry (%) 93 Oxygen Delivery Method Room Air Intake Visit Reasons: PE Traffic Checker Required: No Accompanied by: Self / Same As Patient Allergies No Known Allergies Allergy (Verified 09/24/24 17:03) Medication List - Last Reconciled 09/24/24 by Larissa Piedra MD melatonin 10 mg PO BEDTIME PRN 90 days Tobacco use date assessed: 09/24/24 Dental Screening Dental Screen Date: 09/24/24 Did you have a dental visit in the last 12 months?: Yes Did you have a dental problem in the last 6 months where you did not have access to dental care?: No Was dental information given to patient?: Patient has dentist HPI HPI Comments History of Present Illness Details The patient is a 59-year-old male presenting for his annual physical examination with multiple ongoing concerns, including GERD, shoulder pain, and mental health issues. In November 2022, the patient's colonoscopy was normal. He was last vaccinated for Tdap in 2016. The patient has a continuing history of gastroesophageal discomfort and was previously prescribed medication, with a scheduled follow-up in October due to persistent symptoms. Weight loss has been noted, consistent with decreased appetite and stomach discomfort. Has some change in bowel habits with more constipation. The patient?s past surgical intervention on his left shoulder is noted alongside new concerns of right shoulder pain due to overuse. Financial concerns have currently delayed additional imaging despite a scheduled MRI for further evaluation. Mental health concerns are also present, with mild depression (PHQ-9 score of 11) and anxiety (VENKAT-7 score of 10), linked to recent health issues and stressors. Regarding metabolic health, the patient has prediabetes (fasting glucose level of 113 mg/dL) with a noted reduction in exercise and a high intake of sweets, though recent labs show improved triglycerides. He also has new daily persistent headaches in the morning that has been bothering him. They resolve when he wakes up and moves around. The patient's familial history is marked by paternal prostate cancer, maternal thyroid disease, and a son with aplastic anemia. Lifestyle factors include no smoking, minimal alcohol use, and the use of melatonin for sleep, linked to headaches, which might be exacerbated by its use. - Last colonoscopy was normal (November 2022); next recommended in 2032. - Tdap vaccine administered in 2016; next due in 2026. - Discussed pursuing Shingles and RSV vaccinations at the pharmacy. - Pre-diabetes lab results indicate a fasting glucose of 113 mg/dL; recommended lifestyle changes include reducing sugar intake and increasing physical activity. - Triglycerides were previously 226 and improved to 209. - Total cholesterol is optimal at 177. - LDL cholesterol is 103. - HDL cholesterol is low at 33, discussion of niacin for improvement. - Recommended routine physical activity, possibly elliptical exercises to prevent joint overuse. - Review of family history significant for thyroid disease, prostate cancer, and aplastic anemia. [facility] Medical History (Updated 09/24/24 @ 19:38 by Larissa Piedra MD) VENKAT (generalized anxiety disorder) Mild major depression, single episode Protrusion of intervertebral disc Right shoulder pain Urinary dribbling Arthritis Cervicalgia Physical exam Surgical History Hx of colonoscopy History of rotator cuff surgery Family History Father Prostate cancer Mother Thyroid disease Son Aplastic anemia Social History Household Members: Spouse Housing: House Alcohol intake: current Alcohol intake frequency: holidays/special occasions only Alcohol type: beer Patient Tobacco Use Status: Never used Tobacco Tobacco use type: Cigarette e-Cigarette/Vaping Use: Never Used Second Hand Smoke Exposure: Yes service: No Current occupational status: unemployed Cognitive needs: No Hearing needs: No Vision needs: Yes Questionnaire PHQ-9 Over the last 2 weeks, how often have you been bothered by any of the following problems? 1. Little interest or pleasure in doing things: more than half the days 2. Feeling down, depressed, or hopeless: more than half the days 3. Trouble falling or staying asleep, or sleeping too much: nearly every day 4. Feeling tired or having little energy: several days 5. Poor appetite or overeating: several days 6. Feeling bad about yourself - or that you are a failure or have let yourself or your family down: not at all 7. Trouble concentrating on things, such as reading the newspaper or watching television: several days 8. Moving or speaking so slowly that other people could have noticed. Or the opposite - being so fidgety or restless that you have been moving around a lot more than usual: several days 9. Thoughts that you would be better off or of hurting yourself in some way: not at all Total score: 11 Depression Screening Interpretation: Positive Depression Screening Follow-up: Existing condition, In treatment and Follow-up Visit Requested Depression Screening Done: Yes 17379 - PHQ-9 Billing: Yes Source: Developed by Drs. Wu Moreno, Jazzy Aparicio, Desmond Huynh and colleagues, with an educational jr from [employer]. Thrive Questionnaire Date Thrive assessed: 09/24/24 I am a: Patient What is your living situation today?: I have a steady place to live Within the past 12 months, did the food you bought not last and you didn't have the money to get more?: Never true Within the past 12 months, did you worry whether your food would run out before you got money to buy more?: Never true Do you have trouble paying for medicines?: No Do you have trouble getting transportation to medical appointments?: No Do you have trouble paying your heating and electricity bill?: No Do you have trouble taking care of your child, family member or friend?: No Do you have trouble with day-to-day activities such as bathing, preparing meals, shopping, managing finances, etc.?: No Are you currently unemployed and looking for a job?: No Are you interested in more education?: No Please select the resources that you would like help with: None Currently or been in a relationship where the following occur: No concerns reported THRIVE Score: 0 AUDIT C Alcohol Use Questionnaire (AUDIT-C) 1. How often do you have a drink containing alcohol?: Monthly or less 2. How many drinks containing alcohol do you have on a typical day when you are drinking?: 1 or 2 3. How often do you have six or more drinks on one occasion?: Never Total Score: 1 Score Reviewed/Action Taken: No VENKAT-7 AMB Questionnaire VENKAT-7 Date VENKAT - 7 assessed: 09/24/24 Feeling nervous, anxious, or on edge: 2 = More than half the days Not being able to stop or control worryin = Several days Worrying too much about different things: 3 = Nearly every day Trouble relaxin = Several days Being so restless that it is hard to sit still: 1 = Several days Becoming easily annoyed or irritable: 1 = Several days Feeling afraid as if something awful might happen: 1 = Several days Total VENKAT-7 score (0-4 normal; 5-9 mild; 10-14 moderate; 15-21 severe): 10 Source: Developed by Drs. Wu Moreno, Jazzy Aparicio, Desmond Huynh and colleagues, with an educational jr from [employer]. VENKAT-7 Assessment Billing VENKAT-7 Assessment Tool: VENKAT-7 Assessment 09730 Review of Systems Const All systems reviewed & are unremarkable except as noted in HPI and below Reports fatigue Card Denies chest pain at rest, Denies chest pain with activity, Denies edema, Denies irregular heart rhythm, Denies claudication, Denies dyspnea, Denies dyspnea on exertion, Denies orthopnea, Denies paroxysmal nocturnal dyspnea and Denies slow heart rate Resp Denies cough, Denies dyspnea and Denies dyspnea on exertion GI Denies abdominal pain, Denies change in bowel habits, Denies excessive flatus, Denies nausea and Denies vomiting Denies urinary hesitancy, Denies urinary incontinence and Denies urinary urgency Musc Denies abnormal gait, Denies atrophy, Denies deformity, Reports arthralgias and Denies limited range of motion Skin/Breast Denies bleeding lesions, Denies changing lesions and Denies rash Neuro Denies abnormal gait, Denies behavioral changes and Denies lack of coordination Psych Denies behavioral changes Endo Reports fatigue Physical exam (Primary Care) Vital Signs: Last Vital Signs Pulse 71 09/24/24 16:52 BP 124/80 09/24/24 16:52 Pulse Ox 93 09/24/24 16:52 Oxygen Delivery Method Room Air 09/24/24 16:52 BMI result Body Mass Index 25.5 Tobacco/Smoking Status: Tobacco use Status Tobacco use date assessed 09/24/24 09/24/24 16:57 Patient Tobacco Use Status Never used Tobacco 09/24/24 16:57 Tobacco use type Cigarette 09/24/24 16:57 e-Cigarette/Vaping Use Never Used 09/24/24 16:57 PHQ-9: PHQ-9 Score PHQ-9: Total score 11 09/24/24 17:11 Depression Screening Interpretation: Positive Depression Screening Follow-up: Existing condition, In treatment and Follow-up Visit Requested Thrive Assessment: Date of Thrive Assessment Date Thrive assessed 09/24/24 09/24/24 16:57 Currently or been in a relationship where the following occur: No concerns reported HENMT Head: Yes normal to inspection, Yes normocephalic and Yes atraumatic Ears: external ears normal Eyes General: appearance normal, both eyes and all related structures Eyelids: Yes eyelids normal Conjunctivae: conjunctivae normal Neck Neck: Yes normal visual inspection and Yes supple Resp Effort & Inspection: normal respiratory effort Auscultation: clear to auscultation bilaterally Cardio Jugular venous distension: no JVD Rate: regular rate Rhythm: regular rhythm Heart sounds: S1 normal heart sound present and S2 normal heart sound present GI Inspection: Yes normal to inspection Palpation (GI): Soft to palpation and nontender Auscultation: normal bowel sounds Skin General skin exam: no rashes or lesions noted Neuro General: no focal motor deficits Extrem General: Yes full ROM Psych Appearance: grossly normal Coding Level of Care Code Est Pt Level 4 (88122) Est Pt Prev Care 40-64y(01946) Diagnoses Physical exam Z00.00 Change in bowel habits R19.4 Impaired glucose tolerance R73.02 Chronic fatigue R53.82 Fatigue type: chronic, unspecified New persistent daily headache G44.52 Insomnia due to other mental disorder F51.05; F99 Insomnia type: due to other mental disorder Additional Codes VENKAT-7 Assessment Billing - VENKAT-7 Assessment Tool: VENKAT-7 Assessment 93877 ([id number]) PHQ-9 - 45557 - PHQ-9 Billing: Yes ([id number]) Time Spent (min) 40 Assessment & Plan Assessment & Plan (1) Physical exam: Code(s): Z00.00 - Encounter for general adult medical examination without abnormal findings Category: Medical (2) Change in bowel habits: Code(s): R19.4 - Change in bowel habit Category: Medical (3) Impaired glucose tolerance: Code(s): R73.02 - Impaired glucose tolerance (oral) Category: Medical (4) Fatigue: Code(s): R53.83 - Other fatigue Category: Medical Qualifiers: Fatigue type: chronic, unspecified Qualified Code(s): R53.82 - Chronic fatigue, unspecified (5) New persistent daily headache: Code(s): G44.52 - New daily persistent headache (NDPH) Category: Medical (6) Insomnia: Code(s): G47.00 - Insomnia, unspecified Category: Medical Qualifiers: Insomnia type: due to other mental disorder Qualified Code(s): F51.05 - Insomnia due to other mental disorder; F99 - Mental disorder, not otherwise specified Plan I discussed the management of the patient's ongoing health issues. For GERD, a follow-up is planned with potential adjustments to the therapeutic regimen after the consultation. The right shoulder pain, likely due to overuse, requires further imaging, although this is currently delayed by financial limitations. Mental health assessments show mild depression and anxiety scores, with no additional intervention needed beyond ongoing monitoring and counseling. To address prediabetes, I advised lifestyle modifications, particularly exercise and dietary changes to reduce sugar intake. We discussed the possibility of using niacin to improve HDL cholesterol. Considering family history, we talked about general lifestyle and health maintenance strategies. I recommended vaccinations for shingles and RSV, appropriate for his age. We will ensure regular physical exams and tests as part of his health maintenance. Patient was informed and verbally consented to the use of an ambient scribe for clinic note documentation during this visit. I offered extensive follow-up plans to the patient, including reevaluation of the GERD following the appointment, emphasizing the need for comprehensive imaging of the shoulder pain once financial concerns are mitigated. Mild depression and anxiety integral scores required monitoring, but no alteration in management was suggested given the current mild state. We addressed prediabetes, predicting the effectiveness of lifestyle alterations and calorie reduction. I mentioned to the patient about potentially incorporating niacin to ameliorate low HDL cholesterol. We discussed family health history implications and patient responsibility toward preventive care through vaccinations and regular physical tests. The patient is scheduled for a repeat lab in six months for glucose monitoring. We also addressed concerns over potential melatonin-induced headaches, advising reduction and monitoring. Orders: Orders Testosterone, Free/Total Today R53.83 - Other fatigue MR head/brain wo con Today G44.52 - New daily persistent headache (NDPH) Celiac Disease Panel Today R19.4 - Change in bowel habit Vitamin D 25-OH Total Today E55.9 - Vitamin D deficiency, unspecified Vitamin B12 and Folate Today E53.8 - Deficiency of other specified B group vitamins, R53.83 - Other fatigue Complete Blood Count Auto Diff Today R53.83 - Other fatigue Thyroid Stimulating Hormone Today R53.83 - Other fatigue Comprehensive [place]. Panel Fast 6 Months R73.02 - Impaired glucose tolerance (oral) Medications: New celecoxib (Celebrex) 200 mg PO DAILY 90 caps 0RF 90 days Patient Instructions: - Schedule a follow-up for GERD evaluation. - Monitor right shoulder discomfort; MRI pending financial arrangements. - Continue supervising mental health; consult if symptoms worsen. - Implement dietary changes to decrease sugar intake and increase physical activity to manage prediabetes. - Consider niacin supplementation to increase HDL cholesterol levels. - Explore vaccination options for shingles and RSV at the pharmacy. - Hydrate adequately to possibly decrease headache frequency, lessen melatonin use. - Regularly engage in light physical activity like elliptical to manage joint health. - Return for routine checks and labs, specifically fasting glucose, in six months.
--- OUTSIDE RECORDS SUMMARY | 2024-09-24 19:49 | XMS_ITS | Patient Health Record ---
Author Organization [facility] Address [address] [place] [address] Care Team Providers Care Pneumatic Jack Operator Name Role Phone Larissa Barnard Primary Care Provider UnavailKrishan Araujo Jr Unavailable ALLERGIES No Known Allergies RESULTS Component Value Reference Range Notes Pathology Reviewed date:05/01/2024 10:25:52 AM Interpretation: Performing Lab:[facility], [address] [place] [phone] Notes/Report: Pathology Reviewed date:05/01/2024 10:26:27 AM Interpretation: Performing Lab:[address] [phone] Notes/Report: REASON FOR REFERRAL No Information MEDICATIONS Medication SIG (Take, Route, Frequency, Duration) Notes Start Date End Date Status Omeprazole 20 MG 1 capsule 1/2 to 1 h our before morning meal Orally Once a day for 30 days 05/01/2024 Active MiraLax (colon prep) 17 GM/SCOOP mixed with Gatorade or Crystal Light Orally begin at 5:00 p.m. the day before the procedure for 1 day 04/16/2024 Active Melatonin 3 MG 1 tablet at bedtime as needed Orally Once a day for 30 day(s) Active Advil 200 MG 1 tablet as needed O rally prn Active IMMUNIZATIONS Vaccine Route Administration Date Status Comme nts Influenza Unknown 07/12/2022 Administered Influenza Unknown 06/19/2023 Administered Influenza Unknown 06/03/2024 Administered SOCIAL HISTORY Sex Assigned At : Social History Observation Description Sex Assigned At Unknown PROBLEMS Problem Type ICD Code Onset Dates Problem Status W/U Status Risk SNOMED Code Notes Problem Colon cancer screening (Z12.11) Active confirmed 844149310 Problem Gastro-esophageal reflux disease without esophagitis (K21.9) Active confirmed Gastro-esophage a l reflux disease without esophagitis (324761070) Problem assisted (current) use of non-steroidal anti-inflammatories (NSAID) (Z79.1) Active confirmed 705722132 Problem Family history of colonic polyps (Z83.71) Active confirmed 286503299 Problem Abnormal CT scan, colon (R93.3) Active confirmed 501816458 Problem Diverticulosis of colon (K57.30) Active confirmed Diverticulosi s of colon (989393451) Problem Gastroesophageal reflux disease, unspecified whether esophagitis present (K21.9) Active confirmed 712011796 Problem Gastroesophageal reflux disease with esophagitis without hemorrhage (K21.00) Active confirmed 127900914 VITAL SIGNS Temperature 97.5 degrees Fahrenheit 06/09/2024 Blood pressure diastolic 00 mm Hg 06/09/2024 Height 71 in 06/09/2024 Blood pressure systolic 000 mm Hg 06/09/2024 Weight 187.2 lbs 06/09/2024 BMI 26.11 kg/m2 06/09/2024 Encounters Encounter Location Date Provider Diagnosis [facility] [address] [place], [place] [phone] 04/25/[address] Krishan Ramon Jr Abnormal CT scan, colon R93.3 and Gastro-esophageal reflux disease without esophagitis K21.9 [facility] [place] [address] [place], [place] [phone] 04/29/2024 Krishan Ramon Jr [facility] [address] [place] [phone] 04/16/2024 Krishan Ramon Jr Gastroesophageal reflux disease, unspecified whether esophagitis present K21.[address] scan, colon R93.3 [facility] [address] [place] [phone] 06/09/2024 Krishan Ramon Jr Gastroesophageal reflux disease, unspecified whether esophagitis present K21.9 and Colon cancer screening Z12.11 [facility] [address] [place] [phone] 04/17/2024 Krishan Ramon Jr [facility] [address] [place] [address] 05/01/2024 Krishan Ramon Jr Gastroesophageal reflux disease with esophagitis without hemorrhage K21.00 [facility] [address] [facility] [address] [place] [address] 07/31/2024 Krishan Ramon Jr Gastroesophageal reflux disease with esophagitis without hemorrhage K21.00 ASSESSMENTS Encounter Date Diagnosis Assessment Notes Treatment Notes Treatment Clinical Notes 04/25/2024 Gastro-esophageal reflux disease without esophagitis (ICD-10 - K21.9) 04/25/[address] scan, colon (ICD-10 - R93.3) 04/16/[address] scan, colon (ICD-10 - R93.3) 04/16/2024 Gastroesophageal reflux disease, unspecified whether esophagitis present (ICD-10 - K21.9) Gastroesophageal reflux - discharge material was printed 06/09/2024 Colon cancer screening (ICD-10 - Z12.11) 06/09/2024 Gastroesophageal reflux disease, unspecified whether esophagitis present (ICD-10 - K21.9) Gastroesophageal reflux disease material was printed 05/01/2024 Gastroesophageal reflux disease with esophagitis without hemorrhage (ICD-10 - K21.00) 07/31/2024 Gastroesophageal reflux disease with esophagitis without hemorrhage (ICD-10 - K21.00) PLAN OF TREATMENT Future Test Test Name Order Date COLONOSCOPY 04/05/2016 COLONOSCOPY 08/02/2022 UPPER GI ENDOSCOPY 04/16/2024 COLONOSCOPY 04/16/2024 Next Appt Details Provider Name:Krishan jefferson Jr, 11/13/2024 01:55:00 PM, [address] [place] [address], [address], [place], [address], Insurance Providers Payer Name Payer Address Payer Phone Subscriber Number Group Number Insured Name Patient Relationship to Insured Coverage Start Date Coverage End Date [facility] [employer] [facility] [address] [address] [place], [place] [id number] BLELA RIVERA Self - patient is the insured MEDICAL (GENERAL) HISTORY Medical History History ICD Code Arthritis/disc disease Anxiety/depression Left rotator cuff tear BPH Hypertriglyceridemia Colonoscopy 04/25/24, normal, ten-year fo llowup Upper endoscopy 04/25/24, esophagitis, tr eatment with omeprazole for 8 weeks. Surgical History Surgery Date(Month/Year) rotator cuff 2022
--- OUTSIDE RECORDS SUMMARY | 2024-09-24 19:49 | XMS_ITS | Encounter Summary ---
Author Organization [facility] Address [address] [place] [address] Care Team Providers Care Cloak Room Attendant Name Role Phone Pcp, No Primary Care Provider Unavailabl e Encounter Details Date Type Department Care Team (Late st Contact Info) Description 04/11/2023 Scanned Document [facility] [address] [facility] [address] [place] [id number] Provider, Tone, [address] [place] [address] Social History Tobacco Use Types Packs/Day Years Used Date Smoking Tobacco: Never Assessed Sex and Gender Information Value Date Recorded Sex Assigned at Male 04/09/2023 11:33 AM EDT Gender Identity Male 04/09/2023 11:33 AM EDT Sexual Orientation Other 04/09/2023 11 :33 AM EDT documented as of this encounter Plan of Treatment Not on file documented as of this encounter Visit Diagnoses Not on filedocumented in this encounter Care Teams Cloak Room Attendant Relationship Specialty Start Date End Date Pcp, No [address] [place] [address] PCP - General 04/09/23 documented as of this encounter
--- OUTSIDE RECORDS SUMMARY | 2024-09-24 19:49 | XMS_ITS ---
Author Organization [facility] Address [address] [place] [address] Care Team Providers Care Vending Manager Name Role Phone Larissa Barnard Primary Care Provider Unavailab Krishan Dominguez Jr REASON FOR VISIT pathology MEDICATIONS Medication SIG (Take, Route, Fr equency, Duration) Notes Start Date End Date Status Omeprazole 20 MG 1 capsule 1/2 to 1 h our before morning meal Orally Once a day for 30 day(s) 05/01/2024 Active PROBLEMS Problem Type ICD Code Onset Dates Problem Status W/U Status Risk SNOMED Code Notes Problem Gastroesophageal reflux disease with esophagitis without hemorrhage (K21.00) Active confirmed [id number] Encounters Encounter Location Date Provider Diagnosis [facility] [address] [facility] [address] [place] [phone] 05/01/2024 Krishan Ramon Jr Gastroesophageal reflux disease with esophagitis without hemorrhage K21.00 ASSESSMENTS Encounter Date Diagnosis Assessment Notes Treatment Notes Treatment Clinical Notes 05/01/2024 Gastroesophageal ref lux disease with esophagitis without hemorrhage (ICD-10 - K21.00) PLAN OF TREATMENT Medication Medication Name Sig Start Date Stop Date Notes Omeprazole 20 MG 1 capsule 1/2 to 1 h our before morning meal Orally Once a day for 30 day(s) 05/01/2024 Next Appt Details Provider Name:Krishan jefferson Jr, 11/13/2024 01:55:00 PM, [address] [facility], [address], [place], [address],
--- OUTSIDE RECORDS SUMMARY | 2024-09-24 19:49 | XMS_ITS ---
Author Organization [facility] Address [address] [place] [phone] Care Team Providers Care Med Spa Manager Name Role Phone Larissa Barnard Primary Care Provider Krishan Aguirre Jr ALLERGIES No Known Allergies REASON FOR VISIT Patient presents today for ACID REFLUX MEDICATIONS Medication SIG (Take, Route, Frequency, Duration) Notes Start Date End Date Status MiraLax (colon prep) 17 GM/SCOOP mixed with Gatorade or Crystal Light Orally begin at 5:00 p.m. the day before the procedure for 1 day 04/16/2024 Active Omeprazole 20 MG 1 capsule 1/2 to 1 h our before morning meal Orally Once a day for 30 day(s) 05/01/2024 Active Melatonin 3 MG 1 tablet at bedtime as needed Orally Once a day for 30 day(s) Active Advil 200 MG 1 tablet as needed O rally prn Active VITAL SIGNS Temperature 97.5 degrees Fahrenheit 06/09/20 24 Blood pressure systolic 000 mm Hg 06/09/20 24 Blood pressure diastolic 00 mm Hg 024 Height 71 in 06/09/2024 Weight 187.2 lbs 06/09/2024 BMI 26.11 kg/m2 06/09/2024 Encounters Encounter Location Date Provider Diagnosis [facility] [address] [place] [phone] 06/09/2024 Krishan Ramon Jr Gastroesophageal reflux disease, unspecified whether esophagitis present K21.9 and Colon cancer screening Z12.11 ASSESSMENTS Encounter Date Diagnosis Assessment Notes Treatment Notes Treatment Clinical Notes 06/09/2024 Gastroesophageal reflux disease, unspecified whether esophagitis present (ICD-10 - K21.9) Gastroesophageal reflux disease material was printed 06/09/2024 Colon cancer screening (ICD-10 - Z12.11) PLAN OF TREATMENT Treatment Notes Assessment Notes Gastroesophageal reflux dise ase, unspecified whether esophagitis present Gastroesophageal reflux disease material was printed Next Appt Details Follow Up: 1 Year, Reason: Provider Name:Krishan jefferson Jr, 11/13/2024 01:55:00 PM, [address] [place] [address], [address], [place], [address],
--- OUTSIDE RECORDS SUMMARY | 2024-09-24 19:49 | XMS_ITS ---
Author Organization [facility] Address [address] [place] [address] Care Team Providers Care Oil Burner Mechanic Name Role Phone Larissa Barnard Primary Care Provider Krishan Aguirre Jr REASON FOR VISIT new Rx request MEDICATIONS Medication SIG (Take, Route, Fr equency, Duration) Notes Start Date End Date Status Omeprazole 20 MG 1 capsule 1/2 to 1 h our before morning meal Orally Once a day for 30 days 05/01/2024 Active Encounters Encounter Location Date Provider Diagnosis [facility] [address] [place] [address] 07/31/2024 Krishan Ramon Jr Gastroesophageal reflux disease with esophagitis without hemorrhage K21.00 ASSESSMENTS Encounter Date Diagnosis Assessment Notes Treatment Notes Treatment Clinical Notes 07/31/2024 Gastroesophageal ref lux disease with esophagitis without hemorrhage (ICD-10 - K21.00) PLAN OF TREATMENT Medication Medication Name Sig Start Date Stop Date Notes Omeprazole 20 MG 1 capsule 1/2 to 1 h our before morning meal Orally Once a day for 30 days 05/01/2024 Next Appt Details Provider Name:Krishan jefferson Jr, 11/13/2024 01:55:00 PM, [address], [address], [place], [address],
--- OUTSIDE RECORDS SUMMARY | 2024-09-24 19:49 | XMS_ITS | Clinical Summary ---
Author Organization [facility] Address [address] [place] [address] Care Team Providers Care Appliance Installer Name Role Phone Pcp, No Primary Care Provider Unavailabl e Social History Tobacco Use Types Packs/Day Years Used Date Smoking Tobacco: Never Assessed Sex and Gender Information Value Date Recorded Sex Assigned at Male 04/09/2023 11:33 AM EDT Gender Identity Male 04/09/2023 11:33 AM EDT Sexual Orientation Other 04/09/2023 11 :33 AM EDT Plan of Treatment Health Maintenance Due Date Last Done Comments Hepatitis C Virus Screening 1963 HIV Screening 1976 DTaP/Tdap/Td Vaccines (1 - Tdap) 1982 Pneumococcal Vaccines 50+ (1 of 1 - PCV) 2013 Zoster (Shingles) Vaccine (1 of 2) 2013 COVID-19 Vaccine ( - 2023-2 5 season) 2024 RSV Vaccine 60 years and old er and Patients (1 - 1-dose 75+ series) 2038 Hepatitis B Vaccines Aged Out No long er eligible based on patient's age to complete this topic Pneumococcal Vaccine: Pediat grace (0-5 Years) and At-Risk Patients (6 to 49 Years) Aged Out No longer eligible b ased on patient's age to complete this topic Care Teams Appliance Installer Relationship Specialty Start Date End Date Pcp, Sil [address] [place] [address] PCP - General 04/09/23
== END 2024-09-24 17:34 | disposition home or self-care (01) ==
PROVIDERS: PCP Internal Medicine; Visit Provider Internal Medicine
DX: Z00.00 Encounter for general adult medical examination without abnormal findings (principal); R19.4 Change in bowel habit; R73.02 Impaired glucose tolerance (oral); R53.82 Chronic fatigue, unspecified; G44.52 New daily persistent headache (NDPH); F51.05 Insomnia due to other mental disorder; F99 Mental disorder, not otherwise specified

== ENCOUNTER → 2024-09-24 16:45 | Outpatient (BNVA) | payer OTHER, SELFPAY | PROVIDERS: PCP Internal Medicine; Visit Provider Internal Medicine | DX: Z00.00 Encounter for general adult medical examination without abnormal findings (principal); R19.4 Change in bowel habit; R73.02 Impaired glucose tolerance (oral); R53.82 Chronic fatigue, unspecified; G44.52 New daily persistent headache (NDPH); F51.05 Insomnia due to other mental disorder; F99 Mental disorder, not otherwise specified | CPT/HCPCS: 96127 ==

== ENCOUNTER 2025-01-01 09:18 | Outpatient (AMB) | payer OTHER, SELFPAY ==
[2025-01-01 09:27] VITALS: BP 130/82; PULSE 71; O2SAT 96; BMI 26.4
--- NOTE | 2025-01-01 09:27 | MHC.PC.OV ---
Vital Signs 01/01/25 09:27 Height 5 ft 11 in Weight 189 lb BMI 26.4 BP 130/82 Blood Pressure Location Lt brachial Position Sitting Pulse 71 Pulse Source Pulse Oximeter Pulse Oximetry (%) 96 Oxygen Delivery Method Room Air Intake Visit Reasons: Dr Omar [place] left knee surgery Active Directory Architect Required: No Accompanied by: Self / Same As Patient Allergies No Known Allergies Allergy (Verified 01/01/25 09:34) Medication List - Last Reconciled 01/01/25 by Larissa Piedra MD celecoxib (Celebrex) 200 mg PO DAILY 90 days melatonin 10 mg PO BEDTIME PRN 90 days Tobacco use date assessed: 09/24/24 Dental Screening Dental Screen Date: 09/24/24 HPI HPI Comments History of Present Illness Details The patient is a 59-year-old male with a scheduled preoperative evaluation for an 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 Diagnosed previously via MRI, the mass prompted an orthopedist consultation and planned excision for January 06. Additionally, the patient has chronic arthritis primarily impacting the left knee and foot, though distinct from the lipoma's symptoms. Accompanying chronic medical issues include depression, managed without medication discussion, and prediabetes indicated by a recent glucose reading of 113. The patient experiences ongoing headaches, leading to ordered head MRI in August, awaiting approval due to health plan confusions. Past medical interventions include a 2022 left shoulder rotator cuff surgery and a colonoscopy, both without complications. His family history considers his son?s aplastic anemia and paternal from prostate cancer. Medication use involves limited Celebrex due to upcoming surgery guidelines, with reported social habits featuring beer on occasion and never smoked. [facility] Medical History (Updated 01/01/25 @ 09:49 by Larissa Piedra MD) VENKAT (generalized anxiety disorder) Mild major depression, single episode Protrusion of intervertebral disc Right shoulder pain Urinary dribbling Arthritis Cervicalgia Physical exam Surgical History Hx of colonoscopy History of rotator cuff surgery Family History Father Prostate cancer Mother Thyroid disease Son Aplastic anemia Social History Household Members: Spouse Housing: House Alcohol intake: current Alcohol intake frequency: holidays/special occasions only Alcohol type: beer Patient Tobacco Use Status: Never used Tobacco Tobacco use type: Cigarette e-Cigarette/Vaping Use: Never Used Second Hand Smoke Exposure: Yes service: No Current occupational status: unemployed Cognitive needs: No Hearing needs: No Vision needs: Yes Questionnaire Thrive Questionnaire Date Thrive assessed: 09/24/24 VENKAT-7 AMB Questionnaire VENKAT-7 Date VENKAT - 7 assessed: 09/24/24 Source: Developed by Drs. Wu Moreno, Jazzy Aparicio, Desmond Huynh and colleagues, with an educational jr from [employer]. Review of Systems Const All systems reviewed & are unremarkable except as noted in HPI and below Card Denies chest pain at rest, Denies chest pain with activity, Denies edema, Denies irregular heart rhythm, Denies claudication, Denies dyspnea, Denies dyspnea on exertion, Denies orthopnea, Denies paroxysmal nocturnal dyspnea and Denies slow heart rate Resp Denies cough, Denies dyspnea and Denies dyspnea on exertion Physical exam (Primary Care) BMI result Body Mass Index 26.4 Tobacco/Smoking Status: Tobacco use Status Tobacco use date assessed 09/24/24 09/24/24 16:57 Patient Tobacco Use Status Never used Tobacco 09/24/24 16:57 Tobacco use type Cigarette 09/24/24 16:57 e-Cigarette/Vaping Use Never Used 09/24/24 16:57 Thrive Assessment: Date of Thrive Assessment Date Thrive assessed 09/24/24 09/24/24 16:57 Resp Effort & Inspection: normal respiratory effort Auscultation: clear to auscultation bilaterally Cardio Jugular venous distension: no JVD Rate: regular rate Rhythm: regular rhythm Heart sounds: S1 normal heart sound present and S2 normal heart sound present GI Inspection: Yes normal to inspection Palpation (GI): Soft to palpation and nontender Auscultation: normal bowel sounds Extrem General: Yes full ROM Coding Level of Care Code Est Pt Level 4 (01793) Complex EM visit Add On G2211 Diagnoses Pre-op evaluation Z01.818 Lipoma D17.9 Impaired glucose tolerance R73.02 New persistent daily headache G44.52 Insomnia due to other mental disorder F51.05; 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 Insomnia type: due to other mental disorder Time Spent (min) 25 Assessment & Plan Assessment & Plan (1) Pre-op evaluation: Code(s): Z01.818 - Encounter for other preprocedural examination Category: Medical (2) Lipoma: Code(s): D17.9 - Benign lipomatous neoplasm, unspecified Category: Medical (3) Impaired glucose tolerance: Code(s): R73.02 - Impaired glucose tolerance (oral) Category: Medical (4) New persistent daily headache: Code(s): G44.52 - New daily persistent headache (NDPH) Category: Medical (5) Insomnia: Code(s): G47.00 - Insomnia, unspecified Category: Medical Qualifiers: Insomnia type: due to other mental disorder Qualified Code(s): F51.05 - Insomnia due to other mental disorder; F99 - Mental disorder, not otherwise specified Plan The plan involves preparing for the scheduled lipoma excision by suspending Celebrex several days preoperatively. An electrocardiogram and labs will further evaluate cardiac and pulmonary function for anesthesia. Management of the patient's broader conditions, such as mild depression, arthritis, and headache persistence, remains unchanged presently. An insurance reassessment aims to resolve MRI approval delays for ongoing headache evaluation. A clearance note is planned, furthering continued prediabetes monitoring. Patient was informed and verbally consented to the use of an ambient scribe for clinic note documentation during this visit. During our discussion, I reviewed the process and requirements for the upcoming surgery, emphasizing the cessation of Celebrex use before the procedure. We discussed the prediabetes evaluation, including a recent glucose level, and the necessity of an electrocardiogram pre-surgery. I addressed the patient?s persistent headaches, with an action plan centering on obtaining insurance approval for the delayed head MRI. I ensured all surgical and diagnostic preparation steps were clearly communicated, including timing and locations for necessary preoperative testing. We also talked about refraining from Celebrex and managing his current conditions until surgery. Instructions about pre and post-surgery care, including any emergency symptoms to watch for, were thoroughly discussed. Orders: Orders ECG 12 lead EKG Today Z01.818 - Encounter for other preprocedural examination Patient Instructions: - Stop taking Celebrex 3-5 days before your surgery. - Proceed with planned pre-surgery electrocardiogram and labs to check heart and lungs. - Await clearance note by the weekend for surgery. - Follow up on MRI of the head once insurance approval is clarified. - Watch for any alarming symptoms post-surgery and seek medical attention if needed. - Manage blood sugar levels with diet as advised, especially around the time of eating.
--- OUTSIDE RECORDS SUMMARY | 2025-01-01 10:07 | XMS_ITS | Clinical Summary ---
Author Organization [facility] Address [address] [place] [address] Care Team Providers Care Political Science Instructor Name Role Phone CharlieLarissa Thompson Primary Care Provider [phone] Allergies No known active allergies Medications omeprazole (PriLOSEC) 20 mg capsule 1 CAPSULE 1/2 TO 1 HOUR BEFORE MORNING MEAL ORALLY ONCE A DAY 30 DAYS 5 Active celecoxib (CeleBREX) 200 mg capsule Take 200 mg by mouth in the morning. 5 Active melatonin tablet daily. Active diclofenac sodium 3 % gel Apply topically 2 (two) times a day. Active escitalopram (LEXAPRO) 10 mg tablet Take 10 mg by mouth in the morning. Active hydrOXYzine (ATARAX) 25 mg tablet Take 25 mg by mouth 3 (three) times a day as needed for itching. Active naproxen (EC NAPROSYN) 500 mg EC tablet Take 500 mg by mouth in the morning and 500 mg in the evening. Take with meals. Active cholecalciferol , vitamin D3, (Vitamin D3) 25 mcg (1,000 unit) capsule Take 1,000 Units by mouth in the morning. Active Active Problems No known active problems Encounters Date Type Department Care Team Description 12/15/2024 2:06 PM EDT - 12/15/2024 11:59 PM EDT Hospital Encounter [facility] [address] [place] [address] Omar Archer MD 12/15/2024 2:04 PM EDT - 12/15/2024 2:05 PM EDT Hospital Encounter [facility] [address] [place] [address] Omar Archer MD 12/15/2024 2:00 PM EDT Office Visit [facility] [address] [place] [address] Omar Archer MD 12/15/2024 1:57 PM EDT - 12/15/2024 2:03 PM EDT Hospital Encounter [facility] [address] [place] [address] Omar Archer MD 12/15/2024 1:57 PM EDT - 12/15/2024 2:03 PM EDT Hospital Encounter [facility] [address] [place] [address] Omar Archer MD 12/08/2024 2:00 PM EDT Office Visit [facility] [address] [place] [address] Omar Archer MD from Last 3 Months Social History Tobacco Use Types Packs/Day Years Used Date Smoking Tobacco: Never Smokeless Tobacco: Never Tobacco Cessation:Counseling Given: Not Answered Sex and Gender Information Value Date Recorded Sex Assigned at Not on file Legal Sex Male 12:08 PM EDT Gender Identity Not on file Sexual Orientation Not on file COVID-19 Exposure Response Date Recorded In the last 10 days, have yo u been in contact with someone who was confirmed or suspected to have Coronavirus/COVID-19? No / Unsure 12/15/2024 1:47 PM EDT Last Filed Vital Signs Vital Sign Reading Time Taken Comments Blood Pressure - - Pulse - - Temperature - - Respiratory Rate - - Oxygen Saturation - - Inhaled Oxygen Concentration - - Weight 86.2 kg (190 lb) 12/08/2024 2:02 PM EDT Height 181.6 cm (5' 11.5 ) 12/08/2024 2:02 PM ED T Body Mass Index 26.13 12/08/2024 2:02 PM EDT Plan of Treatment Upcoming Encounters Date Type Department Care Team (Late st Contact Info) Description 01/06/2025 7:30 AM EDT Hospital Encounter [facility] [address] [place] [phone] Omar Archer MD [address] [place] [phone] 01/06/2025 7:30 AM EDT - 01/06/2025 9:00 AM EDT Surgery [facility] [address] [place] [phone] Omar Archer MD [address] [place] [phone] EXCISION, NEOPLASM, SOFT TISSUE, THIGH, RADICAL [[id number] (CPT??)] Scheduled Procedures Name Priority Associated Diagnoses Date/Ti me EXCISION, NEOPLASM, SOFT TIS JOHNNY, THIGH, RADICAL Mass of left thigh 01/06/2025 7:30 AM EDT Health Maintenance Due Date Last Done Comments CT Colonography 1963 Colonoscopy 1963 Colorectal Cancer Screening 1963 FIT-DNA (Cologuard) 1963 FIT 1963 FOBT 1963 Flex Sigmoidoscopy - 5y 1963 HIV Screening 1963 DTaP,Tdap,and Td Vaccines (1 - Tdap) 1981 Hepatitis C Screening 1981 Pneumococcal Vaccine, 50+ Years (1 of 1 - PCV) 2013 Zoster Vaccines (1 of 2) 2013 COVID-19 Vaccine (1 - 2023-2 5 season) 2024 Influenza Vaccine Completed 06/03/2024, 06/19/2023, 07/12/2022 HPV Vaccines Aged Out No longer eligi ble based on patient's age to complete this topic Hepatitis A Vaccines Aged Out No long er eligible based on patient's age to complete this topic MMR Vaccines Aged Out No longer eligi ble based on patient's age to complete this topic Meningococcal Vaccine Aged Out No alfreda alfredo eligible based on patient's age to complete this topic Procedures Procedure Name Priority Date/Time Associated Diagnosis Comments MRI OUTSIDE IMAGE STORAGE Routine 12/15/2024 2:06 PM EDT MRI OUTSIDE IMAGE STORAGE Routine 12/15/2024 2:04 PM EDT XR OUTSIDE IMAGE STORAGE Routine 12/15/2024 1:57 PM EDT MRI OUTSIDE IMAGE STORAGE Routine 12/15/2024 1:57 PM EDT from Last 3 Months Results * MRI Outside Image Storage (12/15/2024 2:06 PM EDT) Only the most recent of3 resultswithin the time period is included. Narrative IMAGING - 12/15/2024 2:06 PM EDT These images were uploaded for reference/storage only. ??The report is not available in PACS or [employer]. ??For more information about this patient we recommend reviewing ??procedures that were performed here at [facility]. Omar Archer MD IMG XR OUTSIDE PROCEDURES Candi l Result Performing Organization Address [facility] de Phone Number IMAGING * XR Outside Image Storage (12/15/2024 1:57 PM EDT) Narrative IMAGING - 12/15/2024 1:57 PM EDT These images were uploaded for reference/storage only. ??The report is not available in PACS or [employer]. ??For more information about this patient we recommend reviewing ??procedures that were performed here at [facility]. Omar Archer MD IMG XR OUTSIDE PROCEDURES Candi l Result Performing Organization Address [facility] de Phone Number IMAGING from Last 3 Months Insurance PPO Care Teams Political Science Instructor Relationship Specialty Start Date End Date Larissa Barnard 2 [facility] [address] [place] [id number] PCP - General Internal Medicine 11/12/24
== END 2025-01-01 09:49 | disposition home or self-care (01) ==
LOC: HO.HMCH 09:19
PROVIDERS: PCP Internal Medicine; Visit Provider Internal Medicine
DX: Z01.818 Encounter for other preprocedural examination (principal); D17.9 Benign lipomatous neoplasm, unspecified; R73.02 Impaired glucose tolerance (oral); G44.52 New daily persistent headache (NDPH); F51.05 Insomnia due to other mental disorder; F99 Mental disorder, not otherwise specified

== ENCOUNTER → 2025-01-01 09:18 | Outpatient (REF) | payer OTHER, SELFPAY ==
--- NOTE | 2025-01-01 09:58 | ECG_ITS ---
Test Reason : ZO1.8 Blood Pressure : */* mmHG Vent. Rate : 60 BPM Atrial Rate : 60 BPM P-R Int : 202 ms QRS Dur : 92 ms QT Int : 404 ms P-R-T Axes : 49 2 24 degrees QTcB Int : 404 ms Normal sinus rhythm Normal ECG No previous ECGs available Referred By: Larissa Piedra Electronically Signed By: MELISSA MEHTA
== END ==
LOC: HO.CARD 09:18
PROVIDERS: PCP Internal Medicine; Visit Provider Internal Medicine
DX: Z01.818 Encounter for other preprocedural examination (principal); D17.9 Benign lipomatous neoplasm, unspecified; R73.02 Impaired glucose tolerance (oral); G44.52 New daily persistent headache (NDPH); F51.05 Insomnia due to other mental disorder; F99 Mental disorder, not otherwise specified
CPT/HCPCS: 93005

== ENCOUNTER → 2025-01-01 09:58 | Outpatient (BNV) | payer OTHER, SELFPAY | PROVIDERS: PCP Internal Medicine; Visit Provider Internal Medicine | DX: Z01.810 Encounter for preprocedural cardiovascular examination (principal) | CPT/HCPCS: 93010 ==

== ENCOUNTER 2025-01-02 08:34 | Outpatient (REF) | payer OTHER, SELFPAY ==
[2025-01-02 08:47] LABS: MANUAL DIFF FLAG NO
--- OUTSIDE RECORDS SUMMARY | 2025-01-02 08:48 | XMS_ITS | Clinical Summary ---
Author Organization [facility] Address [address] [place] [address] Care Team Providers Care Glass Curvature Gauger Name Role Phone Charlie Larissa Piedra Primary Care Provider [phone] Allergies No known active allergies Medications omeprazole (PriLOSEC) 20 mg capsule as needed. 5 Active celecoxib (CeleBREX) 200 mg capsule Take 200 mg by mouth in the morning. 5 Active melatonin tablet nightly. Active diclofenac sodium 3 % gel Apply [...] - 12/15/2024 11:59 PM EDT Hospital Encounter [facility] Department of X-ray Imaging [address] [place] [id number] Omar Archer MD 12/15/2024 2:04 PM EDT - 12/15/2024 2:05 PM EDT Hospital Encounter [facility] Department of X-ray Imaging [address] [place] [address] Omar Archer MD 12/15/2024 2:00 PM EDT Office Visit [facility] Department of Orthopedic Surgery [address] [place] [address] Omar Archer MD 12/15/2024 1:57 PM EDT - 12/15/2024 2:03 PM EDT Hospital Encounter [facility] Department of X-ray Imaging [address] [place] [address] Omar Archer MD 12/15/2024 1:57 PM EDT - 12/15/2024 2:03 PM EDT Hospital Encounter [facility] Department of X-ray Imaging [address] [place] [address] Omar Archer MD 12/08/2024 2:00 PM EDT Office Visit [facility] [address] [place] [address] Omar Archer MD from Last 3 Months Social History Tobacco Use Types Packs/Day Years Used Date Smoking Tobacco: Never Smokeless Tobacco: Never Tobacco Cessation:Counseling Given: Not Answered Alcohol Use Standard Drinks/Week Comments Yes 0 (1 standard drink = 0.6 oz pur e alcohol) social Sex and Gender Information Value Date Recorded Sex Assigned at Not on file Legal Sex Male 12:08 PM EDT Gender Identity Not on file Sexual Orientation Not on file COVID-19 Exposure Response Date Recorded In the last 10 days, have yo u been in contact with someone who was confirmed or suspected to have Coronavirus/COVID-19? No / Unsure 01/01/2025 12:38 PM EDT Last Filed Vital Signs Vital [...] Description 01/06/2025 7:30 AM EDT Hospital Encounter [facility] Operating Room Services [address] [place] [address] Omar Archer MD [address] [place] [address] 01/06/2025 7:30 AM EDT - 01/06/2025 9:00 AM EDT Surgery [facility] Operating Room Services [address] [place] [address] Omar Archer MD [address] [place] [id number] EXCISION, NEOPLASM, SOFT TISSUE, THIGH, RADICAL [[id number] (CPT??)] Scheduled Procedures Name Priority Associated Diagnoses [...] report is not available in PACS or Epic. ??For more information about this patient we recommend reviewing ??procedures that were performed here at [facility] access hospital. Omar Archer MD IM XR OUTSIDE PROCEDURES Candi l Result Performing Organization Address [facility] [[email or web address] de Phone Number IMAGING * XR Outside Image Storage (12/15/2024 1:57 PM EDT) Narrative IMAGING - 12/15/2024 1:57 PM EDT These images were uploaded for reference/storage only. ??The report is not available in PACS or Epic. ??For more information about this patient we recommend reviewing ??procedures that were performed here at [facility]. Omar Archer MD IM XR OUTSIDE PROCEDURES Candi l Result Performing Organization Address [facility] [[email or web address] de Phone Number IMAGING from Last 3 Months Insurance PPO Care Teams Glass Curvature Gauger Relationship Specialty Start Date End Date Larissa Barnard [address] [address] PCP - General Internal Medicine 11/12/24
[2025-01-02 09:00] LABS: Basophils Absolute Auto 0.1 X10*3/uL (0.0-0.2); Basophils Percent Auto 0.9 % (0-2); Eosinophils Absolute Auto 0.2 X10*3/uL (0.0-0.4); Eosinophils Percent Auto 3.6 % (0-4); Hematocrit 45.1 % (42.0-52.0); Hemoglobin 14.9 g/dl (14.0-18.0); Imm Gran Abs Auto 0.02 X10*3/uL (0.00-0.03); Imm Gran Pct Auto 0.3 % (0.0-0.4); Lymphocytes Absolute Auto 1.7 X10*3/uL (1.2-4.9); Lymphocytes Percent Auto 25.7 % (20-40); Mean Corpuscular Hemoglobin 28.1 pg (27.0-33.0); Mean Corpuscular Volume 85.1 fL (80.0-98.0); Mean Platelet Volume 9.1 fL (9.4-12.4); Monocytes Absolute Auto 0.6 X10*3/uL (0.1-1.2); Monocytes Percent Auto 8.6 % (2-11); Neutrophils Absolute Auto 4.1 x10*3/uL (2.0-8.3); Neutrophils Percent Auto 60.9 % (45-73); Platelet Count 301 X10*3/uL (160-400); Red Cell Distribution Width 13.2 % (11.0-16.0); White Blood Count 6.7 X10*3/uL (4.8-10.8)
[2025-01-02 10:24] LABS: Alanine Aminotransferase 32 U/L (0-40); Albumin Level 4.6 g/dL (3.5-5.0); Alkaline Phosphatase 66 U/L (39-117); Anion Gap 10 (12-20); Aspartate Amino Transferase 27 U/L (5-37); Bilirubin Total 0.3 mg/dL (0.0-1.0); Blood Urea Nitrogen 22 mg/dL (9-16); Calcium 9.3 mg/dL (8.4-10.2); Carbon Dioxide 27 mmol/L (22-29); Chloride 108 mmol/L (96-108); Estimated Glomerular Filt Rate > 60; Glucose Fasting 109 mg/dL (60-99); Sodium 141 mmol/L (135-145); Total Protein 7.6 g/dL (6.5-8.0)
[2025-01-02 10:40] LABS: Thyroid Stimulating Hormone 3.15 uIU/mL (0.32-4.0); Vitamin D 25-OH Total 33.8 ng/mL (>30)
[2025-01-02 10:50] LABS: Folate 13.1 ng/mL (> or = 4.0); Vitamin B12 532 pg/mL (200-900)
[2025-01-06 22:29] LABS: Immunoglobulin A 265 mg/dL (70-320); Transglutaminase IgA <1.0 U/mL
== END 2025-01-02 08:35 | disposition home or self-care (01) ==
LOC: HO.LAB 08:34
PROVIDERS: PCP Internal Medicine; Visit Provider Internal Medicine
DX: Z01.818 Encounter for other preprocedural examination (principal); E55.9 Vitamin D deficiency, unspecified; R53.83 Other fatigue; E53.8 Deficiency of other specified B group vitamins; G44.52 New daily persistent headache (NDPH); R19.4 Change in bowel habit
CPT/HCPCS: 36415; 80053; 82306; 82607; 82746; 82784; 84402; 84403; 84443; 85025; 86364

== ENCOUNTER 2025-03-26 11:18 | Outpatient (REF) | payer OTHER, SELFPAY ==
--- OUTSIDE RECORDS SUMMARY | 2025-03-26 12:38 | XMS_ITS | Encounter Summary ---
Author Organization [facility] Address [address] [place] [address] Care Team Providers Care Pediatric Associate Name Role Phone Charlie Piedra Lynda Primary Care Provider [phone] Encounter Details Date Type Department Care Team (Late st Contact Info) Description 02/23/2025 Orders Only [address] [address] Omar Archer MD [address] [place] [address] Intramuscular lipoma (Primary Dx) Social History Tobacco Use Types Packs/Day Years Used Date Smoking Tobacco: Never Smokeless Tobacco: Never Alcohol Use Standard Drinks/Week Comments Yes 0 [...] suspected to have Coronavirus/COVID-19? No / Unsure 02/09/2025 2:20 PM EDT documented as of this encounter Plan of Treatment Upcoming Encounters Date Type Department Care Team (Late st Contact Info) Description 05/04/2025 2:15 PM EDT Follow-Up [facility] Department of Orthopedic Surgery [address] [place] [address] Omar Archer MD [address] [place] [address] documented as of this encounter Visit Diagnoses Diagnosis Intramuscular lipoma- Primary documented in this encounter Care Teams Pediatric Associate Relationship Specialty Start Date End Date Larissa Barnard [address] [place] [address] [address] [place] [address] PCP - General Internal Medicine 11/12/24 documented as of this encounter
--- OUTSIDE RECORDS SUMMARY | 2025-03-26 12:38 | XMS_ITS | Clinical Summary ---
Author Organization [facility] Address [address] [place] [address] Care Team Providers Care Marketing Traffic Coordinator Name Role Phone Pcp, No Primary Care Provider Unavailabl e Social History Tobacco Use Types Packs/Day Years Used Date Smoking Tobacco: Never Assessed Sex and Gender Information Value Date Recorded Sex Assigned at Male 04/09/2023 11:33 AM EDT Legal Sex Male 11:24 AM EDT Gender Identity Male 04/09/2023 11:33 [...] age to complete this topic Care Teams Marketing Traffic Coordinator Relationship Specialty Start Date End Date Pcp, No [address] [place] [address] PCP - General 04/09/23
--- OUTSIDE RECORDS SUMMARY | 2025-03-26 12:38 | XMS_ITS ---
Author Name [facility] Organization Unknown Results Test Name/Text Value Interpretation Date Range Source LAB AP DIAGNOSIS COMMENT Immunohistochemistry for MDM2 is negative; control immunostain is satisfactory. 01/27/2025 [facility] LAB AP ASR DISCLAIMER These tests were developed, and their performance characteristics determined, by the Histology Laboratory at the [facility]. They have not been cleared or approved by the U.S. Food and Drug Administration (FDA). The FDA has determined that such clearance or approval is not necessary. These tests are used for clinical purposes. They should not be regarded as investigational or for research. This laboratory is regulated under the Clinical Laboratory Improvement Amendment of 1988 (CLIA) as qualified to perform high complexity clinical testing. All controls show appropriate reactivity. 01/27/2025 [facility] History of Medication Use Medication Directions Dispensed Refills Start Date End Date Stat gabapentin (NEURONTIN) 300 mg capsule Take 1 capsule (300 mg total) by mouth in the morning and 1 capsule (300 mg total) at noon and 1 capsule (300 mg total) before bedtime. 03/13/2025 active aspirin 81 mg EC tablet Take 1 tablet (81 mg total) by mouth in the morning and 1 tablet (81 mg total) before bedtime. 01/27/2025 active omeprazole (PriLOSEC) 20 mg capsule 1 CAPSULE 1/2 TO 1 HOUR BEFORE MORNING MEAL ORALLY ONCE A DAY 30 DAYS 11/06/2024 active celecoxib (CeleBREX) 200 mg capsule Take 200 mg by mouth in the morning. 09/24/2024 active cholecalciferol, vitamin D3, (Vitamin D3) 25 mcg (1,000 unit) capsule Take 1,000 Units by mouth in the morning. active diclofenac sodium 3 % gel Apply topically 2 (two) times a day. active escitalopram (LEXAPRO) 10 mg tablet Take 10 mg by mouth in the morning. active hydrOXYzine (ATARAX) 25 mg tablet Take 25 mg by mouth 3 (three) times a day as needed for itching. active melatonin tablet daily. active naproxen (EC NAPROSYN) 500 mg EC tablet Take 500 mg by mouth in the morning and 500 mg in the evening. Take with meals. active Problems Problem Status Onset Date Problem Type Date of Resolution Source Intramuscular lipoma active EncounterDiagnosisA ct [facility] Gastro-esophageal reflux disease without esophagitis active 2025-01-02 ProblemAct [facility] Diverticulosis of colon active 2025-01-02 ProblemAct [facility] Encounters Encounter Type Encounter Reason Primary Diagnosis Location Date Ambulatory Post-op Post-op [facility] 03/13/2025 Ambulatory Benign lipomatous neoplasm, unspecified Benign lipomatous neoplasm, unspecified [facility] 02/09/2025 Ambulatory [facility] 12/15/2024 Ambulatory [facility] 12/15/2024 Ambulatory [facility] 12/15/2024 Ambulatory [facility] 12/15/2024 Ambulatory Benign lipomatous neoplasm, unspecified Benign lipomatous neoplasm, unspecified [facility] 12/15/2024 Ambulatory Localized swelling, mass and lump, left Localized swelling, mass and lump, left lower limb [facility] 12/08/2024 Care Team Organization Name Specialty Phone Email Start Date End Da te [facility] KIRA KING Primary Care 2024 [facility] NO PCP Primary Care 04/12/2023 04/12/2023
--- OUTSIDE RECORDS SUMMARY | 2025-03-26 12:38 | XMS_ITS | Patient Health Record ---
Author Organization [facility] Address [address] [place] [address] Care Team Providers Care Specimen Collector Name Role Phone Larissa Barnard Primary Care Provider UnavailKrishan Araujo Jr Unavailable Allergies No Known Allergies Results Component Value Reference Range Notes Pathology Reviewed date:05/01/2024 10:25:52 AM Interpretation: Performing Lab:[facility], [address] [place] [id number] Notes/Report: Pathology Reviewed date:05/01/2024 10:26:27 AM Interpretation: Performing Lab:[address] [address] Notes/Report: Reason For Referral No Information Medications Medication SIG (Take, Route, Fr equency, Duration) Notes Start Date End Date Status Melatonin 3 MG 1 tablet at bedtime as needed Orally Once a day for 30 day(s) Active Omeprazole 20 MG 1 capsule 1/2 to 1 h our before morning meal Orally Once a day for 30 days 05/01/2024 Active Immunizations Vaccine Route Administration Date Status Comme nts Influenza Unknown 07/12/2022 Administered Influenza Unknown 06/19/2023 Administered Influenza Unknown 06/03/2024 Administered Problems Problem Type SNOMED Code ICD Code Onset Dates Problem Status W/U Status Risk Notes Problem 223656189 Colon cancer screening (Z12.11) Active confirmed Problem Gastro-esophageal reflux disease without esophagitis (798368181) Gastro-esophageal reflux disease without esophagitis (K21.9) Active confirmed Problem 320456093 intermediate card tender (curre nt) use of non-steroidal anti-inflammatories (NSAID) (Z79.1) Active confirmed Problem 355239370 Family history o f colonic polyps (Z83.71) Active confirmed Problem 358418343 Abnormal CT scan , colon (R93.3) Active confirmed Problem Diverticulosis of colon (541030693) Diverticulosis of colon (K57.30) Active confirmed Problem 175094539 Gastroesophageal reflux disease, unspecified whether esophagitis present (K21.9) Active confirmed Problem 519977833 Gastroesophageal reflux disease with esophagitis without hemorrhage (K21.00) Active confirmed Vital Signs Temperature 97.5 degrees Fahrenheit 06/09/2024 Blood pressure diastolic 11 mm Hg 11/13/2024 Height 71 in 11/13/2024 Blood pressure systolic 111 mm Hg 11/13/2024 Weight 188 lbs 11/13/2024 BMI 26.22 kg/m2 11/13/2024 Encounters Encounter Location Date Provider Diagnosis [facility] [place] [place] Outpatient [address] [place] [phone] 04/25/2024 Krishan Ramon Jr Ab[address] CT scan, colon R93.3 and Gastro-esophageal reflux disease without esophagitis K21.9 [facility] [address] [place] [phone] 04/16/2024 Krishan Ramon Jr Gastroesophageal reflux disease, unspecified whether esophagitis present K21.[address] scan, colon R93.3 [facility] [address] [place] [phone] 06/09/2024 Krishan Ramon Jr Gastroesophageal reflux disease, unspecified whether esophagitis present K21.9 and Colon cancer screening Z12.11 [facility] [address] [place] [phone] 11/13/2024 Krishan Ramon Jr Gastroesophageal reflux disease, unspecified whether esophagitis present K21.9 and Colon cancer screening Z12.11 [facility] [address] [place] [phone] 04/17/2024 Krishan Ramon Jr [facility] [address] [place] [phone] 05/01/2024 Krishan Ramon Jr Gastroesophageal reflux disease with esophagitis without hemorrhage K21.00 [facility] [address] [place] [address] 07/31/2024 Krishan Tristen Cooper Gastroesophageal reflux disease with esophagitis without hemorrhage K21.00 [facility] [address] [place] [address] 10/23/2024 Krishan Ramon Jr Assessments Encounter Date Diagnosis (ICD Code) Assessment Notes Treatment Notes Treatment Clinical Notes Section Notes 04/25/2024 Gastro-esophageal reflux disease without esophagitis (ICD-10 - K21.9) 04/25/[address] scan, colon (ICD-10 - R93.3) 04/16/[address] scan, colon (ICD-10 - R93.3) We discussed his symptoms today. We discussed gastroesophageal reflux disease. We discussed diet, lifestyle modifications, and weight management. We recommended further evaluation with endoscopy and colonoscopy because of his upper GI symptoms and abnormal CT scan. He is aware of risks and benefits and agrees to proceed. He is advised to stop ibuprofen one week before the procedure. 04/16/2024 Gastroesophageal reflux disease, unspecified whether esophagitis present (ICD-10 - K21.9) Gastroesophageal reflux - discharge material was printed We discussed his symptoms today. We discussed gastroesophageal reflux disease. We discussed diet, lifestyle modifications, and weight management. We recommended further evaluation with endoscopy and colonoscopy because of his upper GI symptoms and abnormal CT scan. He is aware of risks and benefits and agrees to proceed. He is advised to stop ibuprofen one week before the procedure. 06/09/2024 Colon cancer screening (ICD-10 - Z12.11) At this time, he is doing well. We recommended he continue omeprazole and finish the present prescription, after which time he can take it on a p.r.n. basis or stop it completely. Followup will be in 12 months. He is up-to-date on colorectal cancer screening. 06/09/2024 Gastroesophageal reflux disease, unspecified whether esophagitis present (ICD-10 - K21.9) Gastroesophageal reflux disease material was printed At this time, he is doing well. We recommended he continue omeprazole and finish the present prescription, after which time he can take it on a p.r.n. basis or stop it completely. Followup will be in 12 months. He is up-to-date on colorectal cancer screening. 11/13/2024 Colon cancer screening (ICD-10 - Z12.11) We discussed gastroesophageal reflux disease today. We discussed diet, lifestyle modifications, and weight management. He is currently doing very well. We recommend that he continue proton pump inhibitor therapy as he is doing. He can use OTC antacids for breakthrough symptoms. Follow-up will be in 1 year. He is up-to-date on colorectal cancer screening. He will call if he has any problems before then. 11/13/2024 Gastroesophageal reflux disease, unspecified whether esophagitis present (ICD-10 - K21.9) Gastroesophageal reflux disease material was printed We discussed gastroesophageal reflux disease today. We discussed diet, lifestyle modifications, and weight management. He is currently doing very well. We recommend that he continue proton pump inhibitor therapy as he is doing. He can use OTC antacids for breakthrough symptoms. Follow-up will be in 1 year. He is up-to-date on colorectal cancer screening. He will call if he has any problems before then. 05/01/2024 Gastroesophageal reflux disease with esophagitis without hemorrhage (ICD-10 - K21.00) 07/31/2024 Gastroesophageal reflux disease with esophagitis without hemorrhage (ICD-10 - K21.00) Plan Of Treatment Future Test Test Name Order Date COLONOSCOPY 04/05/2016 COLONOSCOPY 08/02/2022 UPPER GI ENDOSCOPY 04/16/2024 COLONOSCOPY 04/16/2024 Next Appt Details Provider Name:Krishan jefferson , 11/12/2025 01:35:00 PM, [address] [place] [address], [address], [place], [address], Insurance Providers Payer Name Payer Address Payer Phone Subscriber Number Group Number Insured Name Patient Relationship to Insured Coverage Start Date Coverage End Date [facility] [address] [place] [phone] [id number] BELLA RIVERA Self - patient is the insured Medical (General) History Medical History History ICD Code Arthritis/disc disease Anxiety/depression Left rotator cuff tear BPH Hypertriglyceridemia Colonoscopy 04/25/24, normal, ten-year fo llowup Upper endoscopy 04/25/24, esophagitis, tr eatment with omeprazole for 8 weeks. Surgical History Surgery Date(Month/Year) rotator cuff 2022
--- OUTSIDE RECORDS SUMMARY | 2025-03-26 12:38 | XMS_ITS | Encounter Summary ---
Author Organization [facility] Address [address] [place] [address] Care Team Providers Care Manager International Name Role Phone Pcp, No Primary Care Provider Unavailabl e Encounter Details Date Type Department Care Team (Late st Contact Info) Description 04/11/2023 Scanned Document [facility] [address] [facility] [address] [place] [phone] Provider, Tone, [address] [place] [address] Social History Tobacco Use Types Packs/Day Years [...] on filedocumented in this encounter Care Teams Manager International Relationship Specialty Start Date End Date Pcp, No [address] [place] [address] PCP - General 04/09/23 documented as of this encounter
--- OUTSIDE RECORDS SUMMARY | 2025-03-26 12:38 | XMS_ITS | Clinical Summary ---
Author Organization [facility] Address [address] [place] [address] Care Team Providers Care Alpine Guide Name Role Phone Larissa Barnard Primary Care Provider [phone] Allergies No known active allergies Medications omeprazole (PriLOSEC) 20 mg capsule as needed. Active melatonin tablet nightly. Active diclofenac sodium 3 % gel Apply topically in the morning and before bedtime. Active escitalopram (LEXAPRO) 10 mg tablet Take 10 mg by mouth in the morning. Active hydrOXYzine (ATARAX) 25 mg tablet Take 25 mg by mouth as needed in the morning and 25 mg as needed at noon and 25 mg as needed in the evening for itching. Active naproxen (EC NAPROSYN) 500 mg EC tablet Take 500 mg by mouth in the morning and 500 mg in the evening. Take with meals. Active cholecalciferol , vitamin D3, (Vitamin D3) 25 mcg (1,000 unit) capsule Take 1,000 Units by mouth in the morning. Active gabapentin (NEURONTIN) 300 mg capsule Take 1 capsule (300 mg total) by mouth in the morning and 1 capsule (300 mg total) at noon and 1 capsule (300 mg total) before bedtime. 90 capsule 5 Active aspirin 81 mg EC tablet Take 1 tablet (81 mg total) by mouth in the morning and 1 tablet (81 mg total) before bedtime. 60 tablet 5 02/27/20 25 Active Problems Problem Noted Date Diagnosed Date Diverticulosis of colon 01/02/2025 Gastro-esophageal reflux disease without esophag itis 01/02/2025 Encounters Date Type Department Care Team Description 03/13/2025 11:00 AM EDT Follow-Up [facility] Department of Orthopedic Surgery [address] [place] [address] Omar Archer MD Intramuscular lipoma (Primary Dx) 02/23/2025 [place] [address] Omar Archer MD Intramuscular lipoma (Primary Dx) 02/09/2025 2:15 PM EDT Follow-Up [facility] Department of Orthopedic Surgery [address] [place] [address] Omar Archer MD Intramuscular lipoma (Primary Dx) 01/27/2025 10:30 AM EDT - 01/27/2025 12:00 PM EDT Surgery [facility] Operating Room Services [address] [place] [address] Omar Archer MD EXCISION, NEOPLASM, SOFT TISSUE, THIGH, RADICAL [[id number] (CPT )] 01/27/2025 8:49 AM EDT - 01/27/2025 1:42 PM EDT Hospital Encounter [facility] [address] [place] [address] Omar Archer MD Mass of left thigh Discharge Disposition: Home or Self Care from Last 3 Months Social History Tobacco [...] suspected to have Coronavirus/COVID-19? No / Unsure 03/13/2025 11:04 AM EDT Last Filed Vital Signs Vital Sign Reading Time Taken Comments Blood Pressure 132/81 01/27/2025 1:30 PM EDT Pulse 60 01/27/2025 1:30 PM EDT Temperature 36.2 C (97.2 F) 01/27/2025 1:30 PM EDT Respiratory Rate 16 01/27/2025 1:30 PM EDT Oxygen Saturation 98% 01/27/2025 1:30 PM EDT Inhaled Oxygen Concentration - - Weight 84.2 kg (185 lb 11.2 oz) 01/27/2025 8:55 AM EDT Height 180.3 cm (5' 10.98 ) 01/27/2025 8:55 AM E DT Body Mass Index 25.91 01/27/2025 8:55 AM EDT Plan of Treatment Upcoming Encounters Date Type Department Care Team (Late st Contact Info) Description 05/04/2025 2:15 PM EDT Follow-Up [facility] Department of Orthopedic Surgery [address] [place] [address] Omar Archer MD [address] [facility] [place] [address] Health Maintenance Due Date Last Done Comments CT Colonography 1963 Colonoscopy 1963 Colorectal Cancer Screening 1963 FIT-DNA (Cologuard) 1963 FIT 1963 FOBT 1963 Flex Sigmoidoscopy - 5y 1963 HIV Screening 1963 Hepatitis C Screening 1981 Pneumococcal Vaccine, 50+ Years (1 of 1 - PCV) 2013 Zoster Vaccines (1 of 2) 2013 COVID-19 Vaccine (1 - 2023-2 5 season) 2024 Influenza Vaccine (#1) 2025 4, 06/19/2023, 07/12/2022 DTaP,Tdap,and Td Vaccines (2 - Td or Tdap) 02/10/2030 02/11/2020 HPV Vaccines Aged Out No longer eligi [...] Procedure Name Priority Date/Time Associated Diagnosis Comments SURGICAL SPECIMEN EXAM Routine 01/27/2025 10:57 AM EDT Mass of left thigh NM AN ELECTIVE SUPRAGLOTTIC AIRWAY Routine 01/27/2025 10:30 AM EDT NM RAD RESECTION TUMOR SOFT TIS THIGH/KNEE 5 CM/> 01/27/2025 10:22 AM EDT Mass of left thigh Special Needs TOTAL CASE TIME 1 HR, Radical resection left thigh mass, consents DOS, no c-arm from Last 3 Months Results * Surgical Specimen Exam (01/27/2025 10:57 AM EDT) Case Report Surgical Pathology Case: [id number] Authorizing Provider: Omar Archer MD Collected: 01/27/2025 1057 Ordering Location: [facility] Operating Received: 01/27/2025 1132 Room Services Pathologist: Edie Alcocer MD Specimen: Leg, Left Upper, Left thigh soft tissue mass 1:48 PM EDT [facility] Final Diagnosis A. (Left thigh soft tissue mass), excision: - Mature fibroadipose tissue; consistent with lipoma. 1:48 PM EDT [facility] at 1347 EDT Comment Immunohistochemistry for MDM2 is negative; control immunostain is satisfactory. 1:48 PM EDT [facility] Gross Description Prosector GN / LW (ASCP); The specimen is received with the patient's name and date of . A. Received in formalin labeled left thigh soft tissue mass is a 12.5 x 7.0 x 3.5 cm irregular, encapsulated, portion of yellow-choe adipose tissue. The external surface is inked blue, and the specimen is serially sectioned. Upon sectioning, the cut surfaces are bulging, lobulated, unremarkable homogeneous yellow-choe adipose tissue. No hemorrhage or necrosis is grossly identified. Library Clerk sections are submitted in cassettes [id number]. 1:48 PM EDT [facility] Disclaimer These tests were developed, and their performance characteristics determined, by the Histology Laboratory at the [facility]. They have not been cleared or approved [...] clinical testing. All controls show appropriate reactivity. 1:48 PM EDT [facility] Embedded Images 1:48 PM EDT [facility] Tissue Structure of left thigh / Unknown 01/27/2025 10:57 AM EDT 01/27/2025 11:32 AM EDT Omar Archer MD LAB PATHOLOGY (NO SOURCE) Candi nathan Result [facility] [address] [place] [address], * [place] AN ELECTIVE SUPRAGLOTTIC AIRWAY (01/27/2025 10:30 AM EDT) Narrative Barbara Pierre APRN - 01/27/2025 10:30 AM EDT Barbara Pierre APRN 01/27/2025 10:40 AM Airway - In OR Date/Time: 01/27/2025 10:30 AM General Information and Staff Authorized by: Daxa Murray MD Performed by: Barbara Pierre APRN, CRNA Final Airway Details Preoxygenated: yes Final airway type: supraglottic airway Successful airway: Classic Size: 5 Number of attempts at approach: 1 Additional Comments Age/size appropriate circuit and mask; IV Induction; EtCO2 Present during mask ventilation. No Dental Damage; Breath Sounds Equal Bilaterally; No Wheezes, Rales or Rhonchi; EtCO2 Present; Eyes Taped Closed; Humidifier Placed in Line. Daxa Murray MD ANESTHESIA ORDERABLES Final Resu lt from Last [address] [facility] PPO Care Teams Alpine Guide Relationship Specialty Start Date End Date Larissa Barnard [address] [place] [address] PCP - General Internal Medicine 11/12/24
[2025-03-26 12:52] LABS: Alanine Aminotransferase 27 U/L (0-40); Albumin Level 4.6 g/dL (3.5-5.0); Alkaline Phosphatase 70 U/L (39-117); Anion Gap 12 (12-20); Aspartate Amino Transferase 26 U/L (5-37); Blood Urea Nitrogen 18 mg/dL (9-16); Calcium 8.9 mg/dL (8.4-10.2); Carbon Dioxide 25 mmol/L (22-29); Chloride 106 mmol/L (96-108); Estimated Glomerular Filt Rate > 60; Potassium 4.2 mmol/L (3.3-5.1); Sodium 139 mmol/L (135-145); Total Protein 7.4 g/dL (6.5-8.0)
[2025-03-30 16:49] LABS: Testosterone, Free 47.6 pg/mL (35.0-155.0)
== END 2025-03-26 11:19 | disposition home or self-care (01) ==
LOC: HO.LAB 11:18
PROVIDERS: PCP Internal Medicine; Visit Provider Internal Medicine
DX: R73.02 Impaired glucose tolerance (oral) (principal); N52.01 Erectile dysfunction due to arterial insufficiency
CPT/HCPCS: 36415; 80053; 84402; 84403

== ENCOUNTER 2025-04-09 16:01 | Outpatient (AMB) | payer OTHER, SELFPAY ==
--- OUTSIDE RECORDS SUMMARY | 2024-04-25 08:10 | XMS_ITS ---
Author Organization [facility] Address [address] [place] [id number] Care Team Providers Care Nurse Sexual Assault Name Role Phone Larissa Barnard Primary Care Provider Krishan Aguirre Jr Unavailable REASON FOR VISIT gerd,abn ct scan colon Problems Problem Type SNOMED Code ICD Code Onset Dates Problem Status W/U Status Risk Notes Problem Gastro-esophagea l reflux disease without esophagitis ([id number]) Gastro-esophage al reflux disease without esophagitis (K21.9) Active confirmed Encounters Encounter Location Date Provider Diagnosis [facility] Outpatient [address] [place] [phone] 04/25/20[address] Krishan Ramon Jr Ab[address] CT scan, colon R93.3 and Gastro-esophageal reflux disease without esophagitis K21.9 Assessments Encounter Date Diagnosis (ICD Code) Assessment Notes Treatment Notes Treatment Clinical Notes Section Notes 04/25/[address] scan, colon (ICD-10 - R93.3) 04/25/2024 Gastro-esophagea l reflux disease without esophagitis (ICD-10 - K21.9) Plan Of Treatment Next Appt Details Provider Name:Krishan jefferson Jr, 11/12/2025 01:35:00 PM, [address], [address], [place], [phone], Progress Notes * RENARD RIVERARODOB:1965 (59 yo M)Acc No.[id number]:04/25/2024 EGD and COL/MAC Patient: BELLA ROSENBERG Provider: Elif Ramon MD DOB:1965 A ge:59 Y S ex:Male Date:04/25/2024 Address:[address] [place] [address] Pcp:Larissa Piedra Subjective: * Chief Complaints: * 1 . Gerd,abn ct scan colon. * Medical History: Objective: * Vitals: Assessment: * Assessment: 1. A bnormal CT scan, colon - R93.3 (Primary) 2 . G monik-esophageal reflux disease without esophagitis - K21.9 Plan: * Treatment: * Procedure Codes: 4 5378 DIAGNOSTIC COLONOSCOPY, 22373 UPPER GI ENDOSCOPY, BIOPSY * * The named appointment provid er may or may not be the originator of this progress note, and it is not deemed complete until electronically signed by the appointment provider. Sign off status: Pending * Provider: Elif Ramon MD Date: 0 04/25/2024 Generated for Jadyn daugherty/Ana/Silvianoitting on: 0 04/09/2025 06:52 PM EDT
--- OUTSIDE RECORDS SUMMARY | 2024-04-29 09:10 | XMS_ITS ---
Author Organization [facility] Address [address] [facility] [address] [place] [address] Care Team Providers Care Crystalizer Name Role Phone Larissa Barnard Primary Care Provider UnavailKrishan Araujo Jr REASON FOR VISIT gerd, abn ct scan colon Encounters Encounter Location Date Provider Diagnosis [facility] Outpatient [address] [place] [id number] 04/29/2024 Krishan Ramon Jr Plan Of Treatment Next Appt Details Provider Name:Krishan jefferson Jr, 11/12/2025 01:35:00 PM, [address] [facility], [address] [facility], [place], [address], Progress Notes * MIGUEL RENARDRODOB:1965 (59 yo M)Acc No.[id number]:04/29/2024 EGD and COL/MAC Patient: BELLA ROSENBERG Provider: Elif Ramon MD :1965 A ge:59 Y S ex:Male Date:04/29/2024 Address:[address] [place], [place] [id number] Pcp:Larissa Piedra Subjective: * Chief Complaints: * 1 . Gerd, abn ct scan colon. * Medical History: Objective: * Vitals: Assessment: Plan: * Treatment: * * The named appointment provid er may or may not be the originator of this progress note, and it is not deemed complete until electronically signed by the appointment provider. Sign off status: Pending * Provider: Elif Ramon MD Date: 1 Generated for Jadyn daughetry/Ana/Jeannie on: 0 04/09/2025 06:52 PM EDT
[2025-04-09 16:02] VITALS: BP 138/100; PULSE 68; O2SAT 99; BMI 26.5
--- NOTE | 2025-04-09 16:02 | A.OFFPC_ITS ---
Vital Signs 04/09/25 16:02 04/09/25 16:30 Height 5 ft 11 in Weight 190 lb 2 oz BMI 26.5 BP 138/100 H 130/90 H Blood Pressure Location Lt brachial Lt brachial Position Sitting Sitting Pulse 68 Pulse Source Pulse Oximeter Pulse Oximetry (%) 99 Oxygen Delivery Method Room Air Intake Visit Reasons: depression, prediabetes Apartment Community Assistant Manager Required: No Accompanied by: Self / Same As Patient Allergies No Known Allergies Allergy (Verified 04/09/25 16:14) Medication List - Last Reconciled 04/09/25 by Larissa Piedra MD celecoxib (Celebrex) 200 mg PO DAILY 90 days gabapentin 300 mg PO TID melatonin 10 mg PO BEDTIME PRN 90 days Tobacco use date assessed: 04/09/25 Dental Screening Dental Screen Date: 04/09/25 Did you have a dental visit in the last 12 months?: Yes Did you have a dental problem in the last 6 months where you did not have access to dental care?: No Was dental information given to patient?: Patient has dentist HPI HPI Comments History of Present Illness Details This is a 59-year-old male with mild major depression, anxiety and impaired glucose tolerance that comes today complaining of daily persistent headaches that happens in the morning involving the right side of the head and the right eye. This headaches go away on its own. He has an MRI of the brain pending for this month. Will be referred to Neurology. He also has elevated blood pressure today I will be recheck in 3 weeks by nurse navigator. He declines counseling for depression and anxiety or any medication. Denies polyuria, polydipsia or unintentional weight loss. [facility] Medical History VENKAT (generalized anxiety disorder) Mild major depression, single episode Protrusion of intervertebral disc Right shoulder pain Urinary dribbling Arthritis Cervicalgia Physical exam Surgical History (Updated 04/09/25 @ 16:20 by Larissa Piedra MD) Lipoma Hx of colonoscopy History of rotator cuff surgery Family History Father Prostate cancer Mother Thyroid disease Son Aplastic anemia Social History Household Members: Spouse Housing: House Alcohol intake: current Alcohol intake frequency: holidays/special occasions only Alcohol type: beer Patient Tobacco Use Status: Never used Tobacco e-Cigarette/Vaping Use: Never Used Second Hand Smoke Exposure: Yes service: No Current occupational status: unemployed Cognitive needs: No Hearing needs: No Vision needs: Yes Questionnaire PHQ-9 Over the last 2 weeks, how often have you been bothered by any of the following problems? 1. Little interest or pleasure in doing things: more than half the days 2. Feeling down, depressed, or hopeless: more than half the days 3. Trouble falling or staying asleep, or sleeping too much: nearly every day 4. Feeling tired or having little energy: several days 5. Poor appetite or overeating: several days 6. Feeling bad about yourself - or that you are a failure or have let yourself or your family down: not at all 7. Trouble concentrating on things, such as reading the newspaper or watching television: several days 8. Moving or speaking so slowly that other people could have noticed. Or the opposite - being so fidgety or restless that you have been moving around a lot more than usual: several days 9. Thoughts that you would be better off or of hurting yourself in some way: not at all Total score: 11 Depression Screening Interpretation: Positive Depression Screening Follow-up: Existing condition, In treatment and Follow-up Visit Requested Depression Screening Done: Yes 24210 - PHQ-9 Billing: Yes Source: Developed by Drs. Wu Moreno, Jazzy Aparicio, Desmond Huynh and colleagues, with an educational jr from [employer]. Thrive Questionnaire Date Thrive assessed: 04/09/25 I am a: Patient What is your living situation today?: I have a steady place to live Within the past 12 months, did the food you bought not last and you didn't have the money to get more?: Never true Within the past 12 months, did you worry whether your food would run out before you got money to buy more?: Never true Do you have trouble paying for medicines?: No Do you have trouble getting transportation to medical appointments?: No Do you have trouble paying your heating and electricity bill?: No Do you have trouble taking care of your child, family member or friend?: No Do you have trouble with day-to-day activities such as bathing, preparing meals, shopping, managing finances, etc.?: No Are you currently unemployed and looking for a job?: No Are you interested in more education?: No Please select the resources that you would like help with: None Currently or been in a relationship where the following occur: No concerns reported THRIVE Score: 0 AUDIT C Alcohol Use Questionnaire (AUDIT-C) 1. How often do you have a drink containing alcohol?: Monthly or less 2. How many drinks containing alcohol do you have on a typical day when you are drinking?: 1 or 2 3. How often do you have six or more drinks on one occasion?: Never Total Score: 1 Score Reviewed/Action Taken: No VENKAT-7 AMB Questionnaire VENKAT-7 Date VENKAT - 7 assessed: 04/09/25 Feeling nervous, anxious, or on edge: 0 = Not at all Not being able to stop or control worryin = Not at all Worrying too much about different things: 0 = Not at all Trouble relaxin = Not at all Being so restless that it is hard to sit still: 0 = Not at all Becoming easily annoyed or irritable: 0 = Not at all Feeling afraid as if something awful might happen: 0 = Not at all Total VENKAT-7 score (0-4 normal; 5-9 mild; 10-14 moderate; 15-21 severe): 0 Source: Developed by Drs. Wu Moreno, Jazzy Aparicio, Desmond Huynh and colleagues, with an educational jr from [employer]. VENKAT-7 Assessment Billing VENKAT-7 Assessment Tool: VENKAT-7 Assessment 42856 Review of Systems Const All systems reviewed & are unremarkable except as noted in HPI and below Card Denies chest pain at rest, Denies chest pain with activity, Denies edema, Denies irregular heart rhythm, Denies claudication, Denies dyspnea, Denies dyspnea on exertion, Denies orthopnea, Denies paroxysmal nocturnal dyspnea and Denies slow heart rate Resp Denies cough, Denies dyspnea and Denies dyspnea on exertion Physical exam (Primary Care) Vital Signs: Last Vital Signs Pulse 68 04/09/25 16:02 BP 138/100 H 04/09/25 16:02 Pulse Ox 99 04/09/25 16:02 Oxygen Delivery Method Room Air 04/09/25 16:02 BMI result Body Mass Index 26.5 Tobacco/Smoking Status: Tobacco use Status Tobacco use date assessed 04/09/25 04/09/25 16:10 Patient Tobacco Use Status Never used Tobacco 04/09/25 16:10 Tobacco use type 01/02/25 08:34 e-Cigarette/Vaping Use Never Used 04/09/25 16:10 PHQ-9: PHQ-9 Score PHQ-9: Total score 11 04/09/25 16:10 Depression Screening Interpretation: Positive Depression Screening Follow-up: Existing condition, In treatment and Follow-up Visit Requested Thrive Assessment: Date of Thrive Assessment Date Thrive assessed 04/09/25 04/09/25 16:10 Currently or been in a relationship where the following occur: No concerns reported Resp Effort & Inspection: normal respiratory effort Auscultation: clear to auscultation bilaterally Cardio Jugular venous distension: no JVD Rate: regular rate Rhythm: regular rhythm Heart sounds: S1 normal heart sound present and S2 normal heart sound present Extrem General: Yes full ROM Coding Level of Care Code Est Pt Level 4 (43186) Complex EM visit Add On G2211 Diagnoses Mild major depression, single episode F32.0 VENKAT (generalized anxiety disorder) F41.1 Impaired glucose tolerance R73.02 Elevated blood pressure reading R03.0 New persistent daily headache G44.52 Additional Codes PHQ-9 - 43594 - PHQ-9 Billing: Yes ([id number]) VENKAT-7 Assessment Billing - VENKAT-7 Assessment Tool: VENKAT-7 Assessment 64568 ([id number]) Time Spent (min) 21 Assessment & Plan Assessment & Plan (1) Mild major depression, single episode: Code(s): F32.0 - Major depressive disorder, single episode, mild Category: Medical (2) VENKAT (generalized anxiety disorder): Code(s): F41.1 - Generalized anxiety disorder Category: Medical (3) Impaired glucose tolerance: Code(s): R73.02 - Impaired glucose tolerance (oral) Category: Medical (4) Elevated blood pressure reading: Code(s): R03.0 - Elevated blood-pressure reading, without diagnosis of hypertension Category: Medical (5) New persistent daily headache: Code(s): G44.52 - New daily persistent headache (NDPH) Category: Medical Plan Do MRI of the head. Referred to neurology. Consider counseling for depression with anxiety. Repeat labs in 6 months. Recheck blood pressure with nurse navigator in 3 weeks. Blood pressure goal is equal or less than 130/80. Orders: Orders Comprehensive [place]. Panel Fast 6 Months R73.02 - Impaired glucose tolerance (oral) Lipid Panel 6 Months E78.5 - Hyperlipidemia, unspecified Referrals Neurology Referral G44.52 - New daily persistent headache (NDPH)
[2025-04-09 16:30] VITALS: BP 130/90
--- OUTSIDE RECORDS SUMMARY | 2025-04-09 18:52 | XMS_ITS | Encounter Summary ---
Author Organization [facility] Address [address] [place] [address] Care Team Providers Care Inspector Receiving Name Role Phone Charlie Piedra Lynda Primary Care Provider [phone] Encounter Details Date Type Department Care Team (Late st Contact Info) Description 02/23/2025 Orders Only [address] [address] Omar Archer MD [address] [place] [address] Intramuscular lipoma (Primary Dx) Social History Tobacco [...] Info) Description 05/04/2025 2:15 PM EDT Follow-Up [facility] Department of Orthopedic Surgery [address] [place] [address] Omar Archer MD [address] [place] [address] documented as of this encounter Visit Diagnoses Diagnosis Intramuscular lipoma- Primary documented in this encounter Care Teams Inspector Receiving Relationship Specialty Start Date End Date Larissa Barnard [address] [place] [address] [address] [place] [address] PCP - General Internal Medicine 11/12/24 documented as of this encounter
--- OUTSIDE RECORDS SUMMARY | 2025-04-09 18:52 | XMS_ITS | Clinical Summary ---
Author Organization [facility] Address [address] [place] [address] Care Team Providers Care Dining Chair Seat Cushion Trimmer Name Role Phone Charlie Larissa Piedra Primary Care Provider [phone] Allergies No known active allergies Medications omeprazole (PriLOSEC) 20 mg capsule as needed. 5 Active melatonin tablet nightly. Active diclofenac [...] (300 mg total) before bedtime. 90 capsule Active Active Problems Problem Noted Date Diagnosed Date Diverticulosis of colon 01/02/2025 Gastro-esophageal reflux disease without esophag itis 01/02/2025 Encounters Date Type Department Care Team Description 03/13/2025 11:00 AM EDT Follow-Up [facility] Department of Orthopedic Surgery [address] [place] [address] Omar Archer MD Intramuscular lipoma (Primary Dx) 02/23/2025 Orders Only [facility] [address] [place] [address] Omar Archer MD Intramuscular lipoma (Primary Dx) 02/09/2025 2:15 PM EDT Follow-Up [facility] Department of Orthopedic Surgery [address] [place] [address] Omar Archer MD Intramuscular lipoma (Primary Dx) 01/27/2025 10:30 AM EDT - 01/27/2025 12:00 PM EDT Surgery [facility] Operating Room Services [address] [place] [address] Omar Archer MD EXCISION, NEOPLASM, SOFT TISSUE, THIGH, RADICAL [[id number] (CPT )] 01/27/2025 8:49 AM EDT - 01/27/2025 1:42 PM EDT Hospital Encounter [facility] Operating Room Services [address] [place] [address] Omar Archer MD Mass of left thigh [...] Info) Description 05/04/2025 2:15 PM EDT Follow-Up [facility] Department of Orthopedic Surgery [address] [place] [address] Omar Archer MD [address] [facility] [address] Health Maintenance Due Date Last Done Comments CT Colonography 1963 Colonoscopy 1963 Colorectal Cancer Screening 1963 FIT-DNA (Cologuard) 1963 FIT 1963 FOBT 1963 Flex Sigmoidoscopy - 5y 1963 HIV Screening 1963 Hepatitis C Screening 1981 Pneumococcal Vaccine, 50+ Years (1 of 1 - PCV) 2013 Zoster Vaccines (1 of 2) 2013 COVID-19 Vaccine (1 - 2023-2 5 season) 2025 Influenza Vaccine (#1) 2025 4, 06/19/2023, 07/12/2022 [...] 10:57 AM EDT Mass of left thigh [place] AN ELECTIVE SUPRAGLOTTIC AIRWAY Routine 01/27/2025 10:30 AM EDT [place] RAD RESECTION TUMOR SOFT TIS THIGH/KNEE 5 CM/> 01/27/2025 10:22 AM EDT Mass of left thigh Special Needs TOTAL CASE TIME 1 HR, Radical resection left thigh mass, consents DOS, no c-arm from Last 3 Months Results * Surgical Specimen Exam (01/27/2025 10:57 AM EDT) Case Report Surgical Pathology Case: [id number] Authorizing Provider: Omar Archer MD Collected: 01/27/2025 1057 Ordering Location: [facility] Operating Received: 01/27/2025 1132 Room Services Pathologist: Edie Alcocer MD Specimen: Leg, Left Upper, Left thigh soft tissue mass 1:48 PM EDT [facility] Final Diagnosis A. (Left thigh soft tissue mass), excision: - Mature fibroadipose tissue; consistent with lipoma. 1:48 PM EDT [facility] at 1347 EDT Comment Immunohistochemistry for MDM2 is negative; control immunostain is satisfactory. 1:48 PM EDT [facility] Gross Description Prosector GN / LW [...] No hemorrhage or necrosis is grossly identified. Mixing And Dispensing Supervisor sections are submitted in cassettes [id number]. 1:48 PM EDT [facility] Disclaimer These tests were developed, and their performance characteristics determined, by the Histology Laboratory at the [facility]. They have not been cleared or [...] controls show appropriate reactivity. 1:48 PM EDT [facility] Embedded Images 1:48 PM EDT [facility] Tissue Structure of left thigh / Unknown 01/27/2025 10:57 AM EDT 01/27/2025 11:32 AM EDT us Omar Archer MD LAB PATHOLOGY (NO SOURCE) Candi nathan Result [facility] [address] [place] [address], [place] [phone] * [place] AN ELECTIVE SUPRAGLOTTIC AIRWAY (01/27/2025 10:30 AM [...] Resu lt from Last 3 Months Insurance PPO Care Teams Dining Chair Seat Cushion Trimmer Relationship Specialty Start Date End Date Larissa Barnard [address] [facility] [address] [place] [id number] PCP - General Internal Medicine 11/12/24
--- OUTSIDE RECORDS SUMMARY | 2025-04-09 18:52 | XMS_ITS | Encounter Summary ---
Author Organization [facility] Address [address] [place] [address] Care Team Providers Care Pillowcase Sewer Name Role Phone Pcp, No Primary Care Provider Unavailabl e Encounter Details Date Type Department Care Team (Late st Contact Info) Description 04/11/2023 Scanned Document [facility] [address] [facility] [address] [place] [phone] Provider, Tone, [address] [place] [address] Social History Tobacco Use Types Packs/Day Years [...] on filedocumented in this encounter Care Teams Pillowcase Sewer Relationship Specialty Start Date End Date Pcp, No [address] [place] [address] PCP - General 04/09/23 documented as of this encounter
--- OUTSIDE RECORDS SUMMARY | 2025-04-09 18:52 | XMS_ITS | Patient Health Record ---
Author Organization [facility] Address [address] [place] [address] Care Team Providers Care Outreach Worker Name Role Phone Larissa Barnard Primary Care Provider UnavailKrishan Araujo Jr Unavailable Allergies No Known Allergies Results Component Value Reference Range Notes Pathology Reviewed date:05/01/2024 10:25:52 AM Interpretation: Performing Lab:[facility], [address] [place] [phone] Notes/Report: Pathology Reviewed date:05/01/2024 10:26:27 AM Interpretation: Performing Lab:[address] [phone] Notes/Report: Reason For Referral No Information Medications [...] Problem Status W/U Status Risk Notes Problem 036087963 Colon cancer screening (Z12.11) Active confirmed Problem Gastro-esophageal reflux disease without esophagitis (186843720) Gastro-esophageal reflux disease without esophagitis (K21.9) Active confirmed Problem 457233390 ferry terminal agent (curre nt) use of non-steroidal anti-inflammatories (NSAID) (Z79.1) Active confirmed Problem 716251101 Family history o f colonic polyps (Z83.71) Active confirmed Problem 417467068 Abnormal CT scan , colon (R93.3) Active confirmed Problem Diverticulosis of colon (873378405) Diverticulosis of colon (K57.30) Active confirmed Problem 261888843 Gastroesophageal reflux disease, unspecified whether esophagitis present (K21.9) Active confirmed Problem 787654392 Gastroesophageal reflux disease with esophagitis without hemorrhage (K21.00) Active confirmed Vital Signs Temperature 97.5 degrees Fahrenheit 06/09/2024 Blood pressure diastolic 11 mm Hg 11/13/2024 Height 71 in 11/13/2024 Blood pressure systolic 111 mm Hg 11/13/2024 Weight 188 lbs 11/13/2024 BMI 26.22 kg/m2 11/13/2024 Encounters Encounter Location Date Provider Diagnosis [facility] Outpatient [address] [place] [id number] 04/25/2024 Krishan Ramon Jr Abnormal CT scan, colon R93.3 and Gastro-esophageal reflux disease without esophagitis K21.9 [facility] [address] [place] [phone] 04/16/2024 Krishan Ramon Jr Gastroesophageal reflux disease, unspecified whether esophagitis present K21.[address] scan, colon R93.3 [facility] [address] [place] [phone] 06/09/2024 Krishan Ramon Jr Gastroesophageal reflux disease, unspecified whether esophagitis present K21.9 and Colon cancer screening Z12.11 [facility] [address] [place] [phone] 11/13/2024 Krishan Ramon Jr Gastroesophageal reflux disease, unspecified whether esophagitis present K21.9 and Colon cancer screening Z12.11 [facility] [address] [place] [phone] 04/17/2024 Krishan Ramon Jr [facility] [address] [place] [phone] 05/01/2024 Krishan Ramon Jr Gastroesophageal reflux disease with esophagitis without hemorrhage K21.00 [facility] [address] [place] [address] 07/31/2024 Krishan Tristen Cooper Gastroesophageal reflux disease with esophagitis without hemorrhage K21.00 [facility] [address] [place] [address] 10/23/2024 Krishan Ramon Jr Assessments Encounter Date [...] Provider Name:Krishan jefferson , 11/12/2025 01:35:00 PM, [address] [place] [address], [address], [place], [address], Insurance Providers Payer Name Payer Address Payer Phone Subscriber Number Group Number Insured Name Patient Relationship to Insured Coverage Start Date Coverage End Date [facility] [address] [place] [phone] [id number] BELLA RIVERA Self - patient is the insured Medical (General) History Medical History History ICD Code Arthritis/disc disease Anxiety/depression Left rotator cuff tear BPH Hypertriglyceridemia Colonoscopy 04/25/24, normal, ten-year fo llowup Upper endoscopy 04/25/24, esophagitis, tr eatment with omeprazole for 8 weeks. Surgical History Surgery Date(Month/Year) rotator cuff 2022
--- OUTSIDE RECORDS SUMMARY | 2025-04-09 18:52 | XMS_ITS | Clinical Summary ---
Author Organization [facility] Address [address] [id number] Care Team Providers Care Principal Product Manager Name Role Phone Pcp, No Primary Care [...] age to complete this topic Care Teams Principal Product Manager Relationship Specialty Start Date End Date Pcp, No [address] [place] [address] PCP - General 04/09/23
== END 2025-04-09 16:32 | disposition home or self-care (01) ==
PROVIDERS: PCP Internal Medicine; Visit Provider Internal Medicine
DX: F32.0 Major depressive disorder, single episode, mild (principal); F41.1 Generalized anxiety disorder; R73.02 Impaired glucose tolerance (oral); R03.0 Elevated blood-pressure reading, without diagnosis of hypertension; G44.52 New daily persistent headache (NDPH)

== ENCOUNTER → 2025-04-09 16:01 | Outpatient (BNVA) | payer OTHER, SELFPAY | PROVIDERS: PCP Internal Medicine; Visit Provider Internal Medicine | DX: F32.0 Major depressive disorder, single episode, mild (principal); F41.1 Generalized anxiety disorder; R73.02 Impaired glucose tolerance (oral); R03.0 Elevated blood-pressure reading, without diagnosis of hypertension; G44.52 New daily persistent headache (NDPH); Z13.31 Encounter for screening for depression; Z13.39 Encounter for screening examination for other mental health and behavioral disorders | CPT/HCPCS: 96127 ==